=== PATIENT | male | born 1970 | race Hispanic/Latino ===

== ENCOUNTER 2017-07-17 14:05 | Inpatient (IN) | payer MEDICARE, MEDICAID ==
[2017-07-17 14:58] VITALS: BMI 48.7
[2017-07-17 16:01] LABS: BASO # 0.02 K/mm3 (0.0-2.0); BASO % 0.2 % (0.0-3.0); EOS % 0.1 % (1.5-5.0); GRAN # 10.75 (1.4-6.5); GRAN % 88.3 % (50.0-68.0); HEMOGLOBIN 12.6 g/dL (14.0-18.0); LYMPH # 0.6 (1.2-3.4); LYMPH % 5.1 % (22.0-35.0); MEAN CELL VOLUME 86.3 fl (80.0-105.0); MEAN CORPUSCULAR HEMOGLOBIN 28.8 pg (25.0-35.0); MEAN CORPUSCULAR HGB CONC 33.4 g/dl (31.0-37.0); MEAN PLATELET VOLUME 9.2 fl (7.0-11.0); MONO # 0.8 (0.1-0.6); MONO % 6.3 % (1.0-6.0); RBC 4.37 10^6/uL (3.5-6.1); RED CELL DISTRIBUTION WIDTH 14.7 % (11.5-14.5); WHITE BLOOD COUNT 12.2 10^3/ul (4.5-11.0)
[2017-07-17 16:02] LABS: VENOUS BLOOD GAS BASE EXCESS 2.7 mmol/L (0.0-2.0); VENOUS BLOOD GAS PO2 44 mm/Hg (30-55); VENOUS BLOOD PH 7.41 (7.32-7.43)
--- NOTE | 2017-07-17 16:08 | RAD ---
HISTORY: leg pain/swelling/erythema COMPARISON: Comparison is made with 07/25/2016 FINDINGS: LUNGS: No evidence of new infiltrate or consolidation in the lungs. PLEURA: No significant pleural effusion identified, no pneumothorax apparent. CARDIOVASCULAR: Normal. OSSEOUS STRUCTURES: No significant abnormalities. VISUALIZED UPPER ABDOMEN: Normal. OTHER FINDINGS: None. IMPRESSION: No active disease.
[2017-07-17 16:14] LABS: ALB/GLOB RATIO 0.9 (1.1-1.8); ALBUMIN 3.8 g/dL (3.0-4.8); ALT/SGPT 17 U/L (7-56); AST/SGOT 27 U/L (17-59); BLOOD UREA NITROGEN 14 mg/dL (7-21); CALCIUM 9.2 mg/dL (8.4-10.5); GFR AFRICAN-AMERICAN > 60; GFR NON-AFRICAN AMERICAN > 60; INR 1.77 (0.93-1.08); PARTIAL THROMBOPLASTIN TIME 32.5 Seconds (25.1-36.5); PROTHROMBIN TIME 20.4 SECONDS (9.4-12.5)
[2017-07-17] MEDS ORDERED: Vancomycin 1gm in NS 250ml 1 GM/250 ML BAG IVPB STA (16:17)
[2017-07-17] MEDS ORDERED: Piperacillin/Tazobact 3.375 gm 100 ML IVPB STA (16:17)
--- NOTE | 2017-07-17 16:39 | CARD ---
APPROVED REPORT EKG Measurement Heart [id number] <Conclusion> Sinus tachycardia Otherwise normal ECG
--- NOTE | 2017-07-17 17:40 | US ---
HISTORY: Leg pain and swelling. Evaluate for DVT PHYSICIAN(S): Mookie Zayas MD. TECHNIQUE: Duplex sonography and color-flow Doppler with graded compression were used to evaluate the deep venous systems of both lower extremities. The exam is very limited by body habitus and edema. The lower femoral veins and tibial veins are not adequately seen FINDINGS: The visualized deep venous systems of both lower extremities are sonographically normal and compressible. Normal wave forms and augmentation are seen. There is no sonographic evidence for deep venous thrombosis in the visualized segments of both lower extremities. IMPRESSION: No sonographic evidence for deep venous thrombosis in the visualized segments of both lower extremities. Very limited study.
[2017-07-17 18:02] LABS: URINE BILIRUBIN SMALL (NEGATIVE); URINE BLOOD TRACE-INTACT (NEGATIVE); URINE GLUCOSE (UA) NEGATIVE (NEGATIVE); URINE LEUKOCYTE ESTERASE NEGATIVE Leu/uL (NEGATIVE); URINE NITRATE NEGATIVE (NEGATIVE); URINE PROTEIN 30 mg/dL (<30 mg/dL)
[2017-07-17 18:07] LABS: URINE APPEARANCE CLEAR (CLEAR); URINE COLOR YELLOW (YELLOW)
[2017-07-17] MEDS ORDERED: Sodium Chloride 0.9% 500 ML IV STA (18:07)
[2017-07-17] MEDS ORDERED: Sodium Chloride 0.9% 1,000 ML IV STA ×2 (18:13→21:54)
[2017-07-17 18:16] LABS: URINE BACTERIA FEW (NEG); URINE RBC 0 - 2 /hpf (0-2); URINE WBC 0 - 2 /hpf (0-6)
--- NOTE | 2017-07-17 18:59 | ED PDOC ---
Arrival/HPI - General Chief Complaint: Lower Extremity Problem/Injury Time Seen by Provider: 07/17/17 15:07 Historian: Patient - History of Present Illness Narrative History of Present Illness (Text): 07/17/17 18:52 47-year-old male with a history of lymphedema in the bilateral lower extremities presents today after being sent for evaluation by the tool crib lead Dr. Tejeda. Patient states he sees Dr. Tejeda regularly for his lymphedema and his wounds on his left leg. Patient states he hasn't been feeling well for about 2-1/2 days. Patient states he's been feeling feverish and having chills. Patient states he feels a little short of breath. States he's had dry mouth. Denies abdominal pain. He is complaining of diffuse body aches. Patient denies nasal congestion or sore throat. Denies dizziness. Complaining of weakness. Patient states he noticed his right leg was a little more swollen than usual and very red. Patient states he took Tylenol yesterday. No medications have been taken for pain today. No other complaints Symptom Onset: Gradual Symptom Course: Worsening Quality: Aching Severity Level: 6 Past Medical History - Provider Review Nursing Documentation Reviewed: Yes - Travel History Have you recently traveled outside [place] w/in the past 3 mons?: No - Infectious Disease Hx of Infectious Diseases: None - Tetanus Immunization Tetanus Immunization: Unknown - Past Medical History Past Medical History: No Previous - Cardiac Hx Cardiac Disorders: No - Pulmonary Hx Respiratory Disorders: No - Neurological Hx Neurological Disorder: No - HEENT Hx HEENT Disorder: Yes (glasses) - Renal Hx Renal Disorder: Yes (BLADDER INFECTION 2011) - Endocrine/Metabolic Hx Diabetes Mellitus Type 2: Yes - Hematological/Oncological Hx Blood Disorders: No - Integumentary Hx Dermatological Disorder: Yes (CELLULITIS OMAYRA LE. 02-22-16) Other/Comment: lymphadema ble/redness lle - Musculoskeletal/Rheumatological Hx Musculoskeletal Disorders: Yes Hx Falls: Yes Hx Unsteady Gait: Yes (CANE) - Gastrointestinal Hx Gastrointestinal Disorders: No - Genitourinary/Gynecological Hx Genitourinary Disorders: Yes Hx Urinary Tract Infection: Yes - Psychiatric Hx Psychophysiologic Disorder: Yes Hx Depression: Yes Hx Emotional Abuse: No Hx Physical Abuse: No Hx Substance Use: No Other/Comment: LD-Mild - Past Surgical History Past Surgical History: No Previous - Anesthesia Hx Anesthesia: Yes Hx Anesthesia Reactions: No Hx Malignant Hyperthermia: No - Suicidal Assessment Feels Threatened In Home Enviroment: No Family/Social History - Physician Review Nursing Documentation Reviewed: Yes Family/Social History: Unknown Family HX Smoking Status: Former Smoker Hx Alcohol Use: No Hx Substance Use: No Hx Substance Use Treatment: No Allergies/Home Meds Allergies/Adverse Reactions: Allergies No Known Allergies Allergy (Verified 07/25/16 22:48) Review of Systems - Review of Systems Constitutional: Fatigue, Fevers ENT: absent: Sore Throat, Sinus Congestion Respiratory: SOB. absent: Cough, Wheezing Cardiovascular: absent: Chest Pain Gastrointestinal: absent: Abdominal Pain, Nausea, Vomiting Genitourinary Male: absent: Dysuria Musculoskeletal: Arthralgias, Back Pain. absent: Neck Pain Skin: Cellulitis Neurological: absent: Headache, Dizziness Psychiatric: absent: Anxiety, Depression Physical Exam Vital Signs Reviewed: Yes Vital Signs Temp Pulse Resp BP Pulse Ox 07/17/17 19:00 102 F H 105 H 21 129/72 97 07/17/17 18:16 102.4 F H 120 H 18 134/60 98 07/17/17 17:00 78 18 123/54 L 98 07/17/17 15:13 98.0 F 78 18 121/67 98 Temperature: Afebrile Blood Pressure: Normal Pulse: Regular Respiratory Rate: Normal Appearance: Positive for: Well-Appearing, Non-Toxic, Comfortable Pain Distress: None Mental Status: Positive for: Alert and Oriented X 3 Finger Stick Blood Glucose: 89 - Systems Exam Head: Present: Atraumatic Mouth: Present: Moist Mucous Membranes Neck: Present: Normal Range of Motion Respiratory/Chest: Present: Clear to Auscultation, Good Air Exchange. No: Respiratory Distress, Accessory Muscle Use, Wheezes, Rhonchi, Tachypneic Cardiovascular: Present: Regular Rate and Rhythm. No: Murmurs, Peripheal Pulses Present, Tachycardic Abdomen: No: Tenderness, Rebound, Guarding Back: Present: Normal Inspection Upper Extremity: Present: Normal Inspection Lower Extremity: Present: Edema (Lymphedema noted bilaterally.), Tenderness, Swelling, Erythema (Right lower extremity: Erythema extends around the entire calf and along the posterior aspect of the knee and right thigh. Positive tenderness. Positive warmth.) Neurological: Present: GCS=15, Speech Normal Skin: Present: Warm Psychiatric: Present: Alert, Oriented x 3 Medical Decision Making ED Course and Treatment: 07/17/17 19:01 47-year-old male with right leg cellulitis sent in by Dr. Tejeda for further evaluation Patient was stable vital signs Venous duplex of the bilateral lower extremities are negative for DVT although limited evaluation due to edema verbal report from optometric tech CBC White blood cell count 12.2 CMP glucose 139 Chest x-ray no no infiltrate or effusion no cardiomegaly lactate; 1.8 EKG sinus tachycardia at 105 bpm normal axis normal intervals no ST elevations pt was started on vancomycin and zosyn for cellulitis of right lower leg. Patient complaining of shortness of breath becoming tachycardic in the emergency room case was discussed with dr. tejeda in depth; she states she was concerned for flu or possible DVT or cellulitis as the patient was saying that he just hasnt been feeling well. D-dimer elevated CT angiogram: FINDINGS: Limitations: Motion artifact - mild. Suboptimal timing of bolus. Pulmonary arteries: No definite filling defects within main, lobar, segmental branches. Suboptimal evaluation of subsegmental branches. Aorta: No aneurysm. No dissection. Lungs: Mild atelectasis/scarring. No consolidation. Pleural space: No significant effusion. No pneumothorax. Heart: Borderline cardiomegaly. No significant pericardial effusion. Mediastinum: Small hiatal hernia. Bones/joints: Mild degenerative changes of spine. Moderate degenerative changes of left acromioclavicular joint. No acute fracture. Soft tissues: Minimal gynecomastia. Lymph nodes: No pathologically enlarged lymph nodes. Liver: Fatty infiltration. IMPRESSION: 1. No definite pulmonary embolism. 2. Incidental/non-acute findings are described above. Patient's temperature was checked in the emergency room now 102.4. Tylenol given by mouth Toradol ordered IV. 1 L normal saline IV bolus given Rapid flu:negative pt reassessment; pt feeling better; HR improved; pain improved. 2L NS bolus ordered. case was discussed with dr. oliver; he would like the patient to be admitted to hospitalist. case discussed with dr. wetzel in depth; accepts admission; will place patient on remote tele for tachycardia. pt was seen and evaluated by dr. wetzel impression: Cellulitis, tachycardia, fever, leukocytosis Admitted to remote telemetry Reassessment Condition: Re-examined, Improved - Lab Interpretations Lab Results: 07/17/17 15:40 07/17/17 15:40 Lab Results 07/17/17 20:25: Influenza Typ A,B (EIA) Negative for flu a/b 07/17/17 17:58: Urine Color Yellow, Urine Appearance Clear, Urine pH 6.0, Ur Specific [place] 1.020, Urine Protein 30 H, Urine Glucose (UA) Negative, Urine Ketones Negative, Urine Blood Trace-intact H, Urine Nitrate Negative, Urine Bilirubin Small H, Urine Urobilinogen 1.0 H, Ur Leukocyte Esterase Negative, Urine RBC 0 - 2, Urine WBC 0 - 2, Ur Epithelial Cells 3 - 4, Urine Bacteria Few 07/17/17 15:52: POC Glucose (mg/dL) 89 07/17/17 15:40: D-Dimer, Quantitative 1940 H 07/17/17 15:40: WBC 12.2 H D, RBC 4.37, Hgb 12.6 L, Hct 37.7 L, MCV 86.3, MCH 28.8, MCHC 33.4, RDW 14.7 H, Plt Count 183, MPV 9.2, Gran % 88.3 H, Lymph % ( Auto) 5.1 L, [place] % (Auto) 6.3 H, Eos % (Auto) 0.1 L, Baso % (Auto) 0.2, Gran # 10.75 H, Lymph # (Auto) 0.[address] L, [place] # (Auto) 0.8 H, Eos # (Auto) 0.0, Baso # ( Auto) 0.02 07/17/17 15:40: Sodium 135, Chloride 97 L, Potassium 3.9, Carbon Dioxide 28, Anion Gap 13, BUN 14, Creatinine 0.8, Est GFR ( Amer) > 60, Est GFR (Non- Af Amer) > 60, Random Glucose 139 H, Calcium 9.2, Total Bilirubin 2.1 H, AST 27 , ALT 17, Alkaline Phosphatase 95, Total Protein 8.1, Albumin 3.8, Globulin 4.3 , Albumin/Globulin Ratio 0.9 L 07/17/17 15:40: pO2 44, VBG pH 7.41, VBG pCO2 44.0, VBG HCO3 27.9, VBG Total CO2 29.3 H, VBG O2 Sat (Calc) 84.6 H, VBG Base Excess 2.7 H, VBG Potassium 4.0, Sodium 132.0, Chloride 100.0, Glucose 136 H, Lactate 1.8, FiO2 21.0, Venous Blood Potassium 4.0 07/17/17 15:40: PT 20.4 H, INR 1.77 H, APTT 32.5 - RAD Interpretation Radiology Orders: 07/17/17 15:24 CHEST PORTABLE [RAD] Stat 07/17/17 15:47 DUPLEX LOWER EXTRM VEIN BILAT [US] Stat 07/17/17 18:07 ANGIO CHEST PE PROTOCOL [CT] Stat - Medication Orders Current Medication Orders: Sodium Chloride (Sodium Chloride 0.9%) 1,000 mls @ 999 mls/hr IV .Q1H1M STA Stop: 07/17/17 22:54 Discontinued Medications Acetaminophen (Tylenol 325mg Tab) 975 mg PO STAT STA Stop: 07/17/17 18:13 Last Admin: 07/17/17 19:09 Dose: 975 mg MAR Pain/Vitals Document 07/17/17 19:09 GMI (Rec: 07/17/17 19:09 GMI [id number]) Pain Reassessment Is This A Pain ReAssessment? Yes Sleep Is patient sleeping during reassessment? No Presence of Pain Presence of Pain No Vancomycin HCl (Vancomycin 1gm) 1 gm in 250 mls @ 167 mls/hr IVPB STAT STA PRN Reason: Protocol Stop: 07/17/17 17:46 Last Admin: 07/17/17 18:35 Dose: 167 mls/hr eMAR Start Stop Document 07/17/17 18:35 GMI (Rec: 07/17/17 18:36 GMI [id number]) Intravenous Solution Start Date 07/17/17 Start Time 18:36 Piperacillin Sod/Tazobactam Sod (Zosyn 3.375 In Ns 100ml) 100 mls @ 200 mls/hr IVPB STAT STA PRN Reason: Protocol Stop: 07/17/17 16:46 Last Admin: 07/17/17 18:00 Dose: 200 mls/hr eMAR Start Stop Document 07/17/17 18:00 GMI (Rec: 07/17/17 18:01 GMI [id number]) Intravenous Solution Start Date 07/17/17 Start Time 17:45 End Date 07/17/17 End time 18:30 Total Infusion Time 45 Sodium Chloride (Sodium Chloride 0.9%) 1,000 mls @ 999 mls/hr IV .Q1H1M STA Stop: 07/17/17 19:13 Last Admin: 07/17/17 19:06 Dose: 999 mls/hr eMAR Start Stop Document 07/17/17 19:06 GMI (Rec: 07/17/17 19:07 GMI [id number]) Intravenous Solution Start Date 07/17/17 Start Time 19:07 Ketorolac Tromethamine (Toradol) 30 mg IVP STAT STA Stop: 07/17/17 18:13 Last Admin: 07/17/17 19:10 Dose: 30 mg MAR Pain Assessment Document 07/17/17 19:10 GMI (Rec: 07/17/17 19:12 GMI [id number]) Pain Reassessment Is this a pain reassessment? Yes Sleep Is patient sleeping during reassessment? No Presence of Pain Presence of Pain Yes Pain Scale Used Pain Scale Used Numeric Description Description Constant Intensity of Pain at present 6 Alleviating Factors/Management Medication Techniques Position Change Alleviating Factors Medication IVP Administration Document 07/17/17 19:10 GMI (Rec: 07/17/17 19:12 GMI [id number]) Charges for Administration # of IVP Administrations 1 Disposition/Present on Arrival - Present on Arrival Any Indicators Present on Arrival: No History of DVT/PE: No History of Uncontrolled Diabetes: No Urinary Catheter: No History of Decub. Ulcer: No History Surgical Site Infection Following: None - Disposition Have Diagnosis and Disposition been Completed?: Yes Diagnosis: Cellulitis, leg, Tachycardia, Fever, Leukocytosis, Lymphedema Disposition: HOSPITALIZED Disposition Time: 22:07 Patient Plan: Admission Condition: FAIR Discharge Instructions (ExitCare): Cellulitis (ED) Referrals: Yogi Oliver JD, MD [Primary Care Provider] - Follow up with primary Forms: [employer] ([place])
[2017-07-17] MEDS ORDERED: Iohexol 350 MG/100 ML VIAL ONE (19:26)
--- NOTE | 2017-07-17 21:44 | CT ---
EXAM: CT Angiography Chest With Intravenous Contrast CLINICAL HISTORY: 47 years old, male; Signs and symptoms; Shortness of breath; Additional info: Shortness of breath, leg pain/swelling/erythema/ TECHNIQUE: Axial computed tomographic angiography images of the chest with intravenous contrast using pulmonary embolism protocol. All CT scans at this facility use one or more dose reduction techniques, viz.: automated exposure control; ma/kV adjustment per patient size (including targeted exams where dose is matched to indication; i.e. head); or iterative reconstruction technique. MIP reconstructed images were created and reviewed. Coronal and sagittal reformatted images were created and reviewed. CONTRAST: 100 mL of OMNI administered intravenously. COMPARISON: DX - CHEST PORTABLE 2017-07-17 15:29 FINDINGS: Limitations: Motion artifact - mild. Suboptimal timing of bolus. Pulmonary arteries: No definite filling defects within main, lobar, segmental branches. Suboptimal evaluation of subsegmental branches. Aorta: No aneurysm. No dissection. Lungs: Mild atelectasis/scarring. No consolidation. Pleural space: No significant effusion. No pneumothorax. Heart: Borderline cardiomegaly. No significant pericardial effusion. Mediastinum: Small hiatal hernia. Bones/joints: Mild degenerative changes of spine. Moderate degenerative changes of left acromioclavicular joint. No acute fracture. Soft tissues: Minimal gynecomastia. Lymph nodes: No pathologically enlarged lymph nodes. Liver: Fatty infiltration. IMPRESSION: 1. No definite pulmonary embolism. 2. Incidental/non-acute findings are described above.
--- NOTE | 2017-07-17 23:04 | CP.PCM.HP ---
<Bienvenido Cook - Last Filed: 07/17/17 23:08> History of Present Illness - History of Present Illness History of Present Illness: Aguila Cook PGY-1 H&P CC: Left lower extremity pain HPI: Patient is a 47 year old male with past medical history of bilateral lower extremity lymphedema, morbid obesity and DM2 who presents with left lower extremity edema/redness and cellulitis. Patient reports he has a chronic issue with lower extremity lymphedema and specifically to his left lower extremity with drainage from his open wounds. Patient is evaluated and followed with Dr. Tejeda in the wound clinic at [facility]. He was sent over from wound clinic to ED for evaluation. Patient reports ongoing issue with lower extremity lasting months. Over the past 3 days patient has recently developed redness and increased drainage that is described as clear to yellow over the past few days. Patient indicates he has had chills, fever, and pain associated with the lower left extremity. Patient denies chest pain, abdominal pain, diarrhea, nausea, vomiting, numbness and weakness. Patient indicates previous episodes of cellulitis requiring IV antibiotics and wound care. PMH: Chronic Lymphedema PSH: Denies All: NKDA Meds: Tylenol FMHx: CVA, HTN SocHx: Denies tobacco ETOh, Illicit drugs Podiatry: Dr. Tejeda PMD: Dr. Yogi Oliver Present on Admission - Present on Admission Any Indicators Present on Admission: No Review of Systems - Constitutional Constitutional: Chills, Fever - EENT Eyes: absent: Blurred Vision, Change in Vision Ears: absent: Ear Discharge Nose/Mouth/Throat: Nasal Congestion, Nasal Discharge, Dry Mouth. absent: Epistaxis - Cardiovascular Cardiovascular: absent: Chest Pain, Chest Pain at Rest - Respiratory Respiratory: Dyspnea. absent: Cough, Hemoptysis, Wheezing - Gastrointestinal Gastrointestinal: absent: Abdominal Pain, Bloating, Diarrhea - Genitourinary Genitourinary: absent: Dysuria, Hematuria - Musculoskeletal Musculoskeletal: Myalgias. absent: Abnormal Gait, Muscle Weakness - Integumentary Integumentary: Rash, Swelling, Wounds (left lower extremity) - Neurological Neurological: absent: Abnormal Gait, Dizziness, Numbness, Focal Weakness - Psychiatric Psychiatric: absent: Anxiety, Confusion - Hematologic/Lymphatic Hematologic: absent: Easy Bleeding, Easy Bruising Past Patient History - Infectious Disease Hx of Infectious Diseases: None - Tetanus Immunizations Tetanus Immunization: Unknown - Past Medical History & Family History Past Medical History?: Yes - Past Social History Smoking Status: Former Smoker Alcohol: None Drugs: Denies - CARDIAC Hx Cardiac Disorders: No - PULMONARY Hx Respiratory Disorders: No - NEUROLOGICAL Hx Neurological Disorder: No - HEENT Hx HEENT Problems: Yes (glasses) - RENAL Hx Chronic Kidney Disease: Yes (BLADDER INFECTION 2011) - ENDOCRINE/METABOLIC Hx Diabetes Mellitus Type 2: Yes - HEMATOLOGICAL/ONCOLOGICAL Hx Blood Disorders: No - INTEGUMENTARY Hx Dermatological Problems: Yes (CELLULITIS OMAYRA LE. 02-22-16) Other/Comment: lymphadema ble/redness lle - MUSCULOSKELETAL/RHEUMATOLOGICAL Hx Musculoskeletal Disorders: Yes Hx Falls: Yes Hx Unsteady Gait: Yes (CANE) - GASTROINTESTINAL Hx Gastrointestinal Disorders: No - GENITOURINARY/GYNECOLOGICAL Hx Genitourinary Disorders: Yes Hx Urinary Tract Infection: Yes - PSYCHIATRIC Hx Psychophysiologic Disorder: Yes Hx Depression: Yes Hx Emotional Abuse: No Hx Physical Abuse: No Hx Substance Use: No Other/Comment: LD-Mild - SURGICAL HISTORY Hx Surgeries: No - ANESTHESIA Hx Anesthesia: Yes Hx Anesthesia Reactions: No Hx Malignant Hyperthermia: No Meds Allergies/Adverse Reactions: Allergies Allergy/AdvReac Type Severity Reaction Status Date / Time No Known Allergies Allergy Verified 07/25/16 22:48 Physical Exam - Constitutional Appears: No Acute Distress Additional comments: Appears stated age, talking in full sentences - Head Exam Head Exam: ATRAUMATIC, NORMAL INSPECTION, NORMOCEPHALIC - Eye Exam Eye Exam: EOMI, PERRL - ENT Exam ENT Exam: Mucous Membranes Dry - Respiratory Exam Respiratory Exam: Clear to Auscultation Bilateral, NORMAL BREATHING PATTERN. absent: Rhonchi, Wheezes - Cardiovascular Exam Cardiovascular Exam: REGULAR RHYTHM, +S1, +S2 - GI/Abdominal Exam GI & Abdominal Exam: Distended (obesity), Normal Bowel Sounds, Soft - Extremities Exam Extremities exam: Negative for: calf tenderness Additional comments: bilateral edema of lower extremities, left lower extremity with wound dressing in place, left leg with clear to purulent drainage of open wounds, redness and elevated temperature appreciated - Neurological Exam Neurological exam: Alert, Oriented x3 Additional comments: able to follow simple commands, able to move all four extremities past midline, motor and sensory grossly intact - Psychiatric Exam Psychiatric exam: Normal Affect, Normal Mood - Skin Skin Exam: Dry, Warm Additional comments: erythema noted of left lower extremity Results - Vital Signs Recent Vital Signs: Last Vital Signs Temp 102 F H 07/17/17 19:00 Pulse 105 H 07/17/17 19:00 Resp 21 07/17/17 19:00 BP 129/72 07/17/17 19:00 Pulse Ox 97 07/17/17 19:00 - Labs Result Diagrams: 07/17/17 15:40 07/17/17 15:40 Labs: Laboratory Results - last 24 hr 07/17/17 07/17/17 07/17/17 15:40 15:40 15:40 WBC RBC Hgb Hct MCV MCH MCHC RDW Plt Count MPV Gran % Lymph % (Auto) [place] % (Auto) Eos % (Auto) Baso % (Auto) Gran # Lymph # (Auto) [place] # (Auto) Eos # (Auto) Baso # (Auto) PT 20.4 H INR 1.77 H APTT 32.5 D-Dimer, Quantitative pO2 44 VBG pH 7.41 VBG pCO2 44.0 VBG HCO3 27.9 VBG Total CO2 29.3 H VBG O2 Sat (Calc) 84.6 H VBG Base Excess 2.7 H VBG Potassium 4.0 Sodium 132.0 135 Chloride 100.0 97 L Glucose 136 H Lactate 1.8 FiO2 21.0 Potassium 3.9 Carbon Dioxide 28 Anion Gap 13 BUN 14 Creatinine 0.8 Est GFR ( Amer) > 60 Est GFR (Non-Af Amer) > 60 POC Glucose (mg/dL) Random Glucose 139 H Calcium 9.2 Total Bilirubin 2.1 H AST 27 ALT 17 Alkaline Phosphatase 95 Total Protein 8.1 Albumin 3.8 Globulin 4.3 Albumin/Globulin Ratio 0.9 L Venous Blood Potassium 4.0 Urine Color Urine Appearance Urine pH Ur Specific [place] Urine Protein Urine Glucose (UA) Urine Ketones Urine Blood Urine Nitrate Urine Bilirubin Urine Urobilinogen Ur Leukocyte Esterase Urine RBC Urine WBC Ur Epithelial Cells Urine Bacteria Influenza Typ A,B (EIA) 07/17/17 07/17/17 07/17/17 15:40 15:40 15:52 WBC 12.2 H D RBC 4.37 Hgb 12.6 L Hct 37.7 L MCV 86.3 MCH 28.8 MCHC 33.4 RDW 14.7 H Plt Count 183 MPV 9.2 Gran % 88.3 H Lymph % (Auto) 5.1 L [place] % (Auto) 6.3 H Eos % (Auto) 0.1 L Baso % (Auto) 0.2 Gran # 10.75 H Lymph # (Auto) 0.6 L [place] # (Auto) 0.8 H Eos # (Auto) 0.0 Baso # (Auto) 0.02 PT INR APTT D-Dimer, Quantitative 1940 H pO2 VBG pH VBG pCO2 VBG HCO3 VBG Total CO2 VBG O2 Sat (Calc) VBG Base Excess VBG Potassium Sodium Chloride Glucose Lactate FiO2 Potassium Carbon Dioxide Anion Gap BUN Creatinine Est GFR ( Amer) Est GFR (Non-Af Amer) POC Glucose (mg/dL) 89 Random Glucose Calcium Total Bilirubin AST ALT Alkaline Phosphatase Total Protein Albumin Globulin Albumin/Globulin Ratio Venous Blood Potassium Urine Color Urine Appearance Urine pH Ur Specific [place] Urine Protein Urine Glucose (UA) Urine Ketones Urine Blood Urine Nitrate Urine Bilirubin Urine Urobilinogen Ur Leukocyte Esterase Urine RBC Urine WBC Ur Epithelial Cells Urine Bacteria Influenza Typ A,B (EIA) 07/17/17 07/17/17 17:58 20:25 WBC RBC Hgb Hct MCV MCH MCHC RDW Plt Count MPV Gran % Lymph % (Auto) [place] % (Auto) Eos % (Auto) Baso % (Auto) Gran # Lymph # (Auto) [place] # (Auto) Eos # (Auto) Baso # (Auto) PT INR APTT D-Dimer, Quantitative pO2 VBG pH VBG pCO2 VBG HCO3 VBG Total CO2 VBG O2 Sat (Calc) VBG Base Excess VBG Potassium Sodium Chloride Glucose Lactate FiO2 Potassium Carbon Dioxide Anion Gap BUN Creatinine Est GFR ( Amer) Est GFR (Non-Af Amer) POC Glucose (mg/dL) Random Glucose Calcium Total Bilirubin AST ALT Alkaline Phosphatase Total Protein Albumin Globulin Albumin/Globulin Ratio Venous Blood Potassium Urine Color Yellow Urine Appearance Clear Urine pH 6.0 Ur [place] 1.020 Urine Protein 30 H Urine Glucose (UA) Negative Urine Ketones Negative Urine Blood Trace-intact H Urine Nitrate Negative Urine Bilirubin Small H Urine Urobilinogen 1.0 H Ur Leukocyte Esterase Negative Urine RBC 0 - 2 Urine WBC 0 - 2 Ur Epithelial Cells 3 - 4 Urine Bacteria Few Influenza Typ A,B (EIA) Negative for flu a/b Assessment & Plan - Assessment and Plan (Free Text) Assessment: Patient is a 47 year old male with past medical history of bilateral lower extremity lymphedema, morbid obesity and DM2 who presents with left lower extremity edema/redness and cellulitis. Patient was evaluated in ED and found to be tachycardic, febrile. Patient was noted to be tachycardic and short of breath a lower extremity US was done which was negative, D-Dimer was elevated and CTA of chest was done which showed no evidence of PE. Wound cultures were taken, IV antibiotics were started and patient was admitted for further medical management and evaluation. Plan: 1. Cellulitis of left lower extremity - Febrile, Leukocytosis, Tachycardic - CBC, CMP, Wound, blood culture - Vanc and Zosyn - Consult ID, Dr. Og - Consult Podiatry, Dr. Tejeda - Tylenol prn Fever - Wound care consult - NS 125mL/hr 2. DM2 - ISS low - ACHS - Heart Healthy diet 3. Elevated D-Dimer - Likely secondary to infection - lower extremity US negative for DVT - CTA of chest negative - O2 saturation >92% on RA DVT ppx: Lovenox GI ppx: Pepcid Case and plan discussed with attending - Date & Time Date: 07/17/17 Time: 22:15 <Jefferson Bedolla MD - Last Filed: 07/18/17 11:26> Results - Vital Signs Recent Vital Signs: Last Vital Signs Temp 97.8 F 07/18/17 06:00 Pulse 91 H 07/18/17 06:00 Resp 20 07/18/17 06:00 BP 127/62 07/18/17 06:00 Pulse Ox 97 07/18/17 06:00 - Labs Result Diagrams: 07/18/17 06:30 07/18/17 05:30 Labs: Laboratory Results - last 24 hr 07/18/17 07/18/17 07/18/17 05:30 05:30 06:30 WBC RBC Hgb Hct MCV MCH MCHC RDW Plt Count MPV Gran % Lymph % (Auto) [place] % (Auto) Eos % (Auto) Baso % (Auto) Gran # Lymph # (Auto) [place] # (Auto) Eos # (Auto) Baso # (Auto) ESR 115 H PT 19.0 H INR 1.64 H Sodium 136 Potassium 3.7 Chloride 102 Carbon Dioxide 30 Anion Gap 8 L BUN 14 Creatinine 0.8 Est GFR ( Amer) > 60 Est GFR (Non-Af Amer) > 60 POC Glucose (mg/dL) Random Glucose 139 H Calcium 8.5 Total Bilirubin 1.9 H AST 25 ALT 25 Alkaline Phosphatase 83 Troponin I NT-Pro-B Natriuret Pep Total Protein 7.0 Albumin 3.0 Globulin 3.9 Albumin/Globulin Ratio 0.8 L 07/18/17 07/18/17 07/18/17 06:30 06:30 09:07 WBC 8.0 D RBC 3.82 Hgb 10.8 L Hct 33.4 L MCV 87.4 MCH 28.3 MCHC 32.3 RDW 15.1 H Plt Count 161 MPV 9.5 Gran % 83.0 H Lymph % (Auto) 7.3 L [place] % (Auto) 8.7 H Eos % (Auto) 0.9 L Baso % (Auto) 0.1 Gran # 6.67 H Lymph # (Auto) 0.6 L [place] # (Auto) 0.7 H Eos # (Auto) 0.1 Baso # (Auto) 0.01 ESR PT INR Sodium Potassium Chloride Carbon Dioxide Anion Gap BUN Creatinine Est GFR ( Amer) Est GFR (Non-Af Amer) POC Glucose (mg/dL) 151 H Random Glucose Calcium Total Bilirubin AST ALT Alkaline Phosphatase Troponin I < 0.01 NT-Pro-B Natriuret Pep 313 Total Protein Albumin Globulin Albumin/Globulin Ratio Attending/Attestation - Attestation I have personally seen and examined this patient.: Yes I have fully participated in the care of the patient.: Yes I have reviewed all pertinent clinical information: Yes Notes (Text): -I agree with the above H&P completed by the resident physician with the following additions and/or changes: -The patient is a 47 year old man with a history of NIDDM, chronic leg lymphedema with recurrent venous stasis ulcers and cellulitis, who is being admitted with bilateral lower extremity cellulitis. He will be started on empiric IV Vanco and Zosyn. Also, a procalcitonin level has been sent. All imaging done in the ED was negative for clots. Wound care, ID and podiatry have all been consulted.
[2017-07-17] MEDS: Piperacillin/Tazobact 3.375 gm 100 ML IVPB SCH (23:14)
[2017-07-18] MEDS: Sodium Chloride 0.9% 1,000 ML IV SCH ×4 (05:28→23:23)
[2017-07-18] MEDS: Piperacillin/Tazobact 3.375 gm 100 ML IVPB SCH (05:30)
[2017-07-18] MEDS: Vancomycin 1.5 GM in Sodium Chloride 0.9% 500 ML IVPB SCH ×2 (06:07→17:38)
[2017-07-18 06:29] LABS: INR 1.64 (0.93-1.08)
[2017-07-18 07:48] LABS: ALB/GLOB RATIO 0.8 (1.1-1.8); ALT/SGPT 25 U/L (7-56); AST/SGOT 25 U/L (17-59); BLOOD UREA NITROGEN 14 mg/dL (7-21); CALCIUM 8.5 mg/dL (8.4-10.5); GFR AFRICAN-AMERICAN > 60; GFR NON-AFRICAN AMERICAN > 60
[2017-07-18] MEDS ORDERED: Meropenem 1 GM in Dextrose 5% In Water 100 ML IVPB SCH (08:30)
[2017-07-18 08:45] LABS: BASO # 0.01 K/mm3 (0.0-2.0); BASO % 0.1 % (0.0-3.0); EOS # 0.1 (0.0-0.7); EOS % 0.9 % (1.5-5.0); GRAN # 6.67 (1.4-6.5); HEMOGLOBIN 10.8 g/dL (14.0-18.0); LYMPH # 0.6 (1.2-3.4); LYMPH % 7.3 % (22.0-35.0); MEAN CELL VOLUME 87.4 fl (80.0-105.0); MEAN CORPUSCULAR HEMOGLOBIN 28.3 pg (25.0-35.0); MEAN CORPUSCULAR HGB CONC 32.3 g/dl (31.0-37.0); MEAN PLATELET VOLUME 9.5 fl (7.0-11.0); MONO # 0.7 (0.1-0.6); MONO % 8.7 % (1.0-6.0); RBC 3.82 10^6/uL (3.5-6.1); RED CELL DISTRIBUTION WIDTH 15.1 % (11.5-14.5)
[2017-07-18 08:51] LABS: TROPONIN I < 0.01 ng/mL
[2017-07-18 08:53] LABS: B-TYPE NATRIURETIC PEPTIDE 313 pg/mL (0-450)
[2017-07-18] MEDS: Insulin Reg-LOW-Coverage SC SCH ×4 (09:15→21:53)
[2017-07-18] MEDS: Enoxaparin 40 mg Syringe SC SCH (09:15)
[2017-07-18] MEDS ORDERED: Vancomycin 500 mg Inj IVPB SCH (10:00)
--- NOTE | 2017-07-18 11:15 | CP.PCM.CON ---
History of Present Illness - History of Present Illness History of Present Illness: 47 year old male with PMH of chronic lymphedema, bilateral lower extremity skin and skin structure infection with mild peroneal tenosynovitis (December 2015, treated with IV Vancomycin), chronic lymphedema and history of lower extremity cellulitis in the past, morbid obesity with BMI 55, history of urinary bladder infections in the past was sent in from the wound care center after he was found to have worsening bilateral lower leg swelling, left leg wound which is oozing and right leg being more swollen than the left. He said the pain especially on the right leg got worse about 3-4 days ago. He denies animal contacts, denies walking barefoot on soil, was noted to have fever in the ED. He denies headache or dizziness, no chest pain, abdominal pain, diarrhea, nausea , vomiting, no abdominal pain, no diarrhea, no dysuria. Infectious diseases consult is requested to further evaluate and manage. Review of Systems - Review of Systems All systems: reviewed and no additional remarkable complaints except (as per HPI ) Past Patient History - Infectious Disease Hx of Infectious Diseases: None - Tetanus Immunizations Tetanus Immunization: Unknown - Past Medical History & Family History Past Medical History?: Yes - Past Social History Smoking Status: Never Smoked - CARDIAC Hx Cardiac Disorders: No - PULMONARY Hx Respiratory Disorders: No - NEUROLOGICAL Hx Neurological Disorder: No - HEENT Hx HEENT Problems: No - RENAL Hx Chronic Kidney Disease: No - ENDOCRINE/METABOLIC Hx Endocrine Disorders: Yes Hx Diabetes Mellitus Type 2: Yes - HEMATOLOGICAL/ONCOLOGICAL Hx Blood Disorders: No - INTEGUMENTARY Hx Dermatological Problems: No - MUSCULOSKELETAL/RHEUMATOLOGICAL Hx Musculoskeletal Disorders: No Hx Falls: No - GASTROINTESTINAL Hx Gastrointestinal Disorders: No - GENITOURINARY/GYNECOLOGICAL Hx Genitourinary Disorders: No - PSYCHIATRIC Hx Psychophysiologic Disorder: No Hx Substance Use: No - SURGICAL HISTORY Hx Surgeries: No - ANESTHESIA Hx Anesthesia: Yes Hx Anesthesia Reactions: No Hx Malignant Hyperthermia: No Meds Allergies/Adverse Reactions: Allergies Allergy/AdvReac Type Severity Reaction Status Date / Time No Known Allergies Allergy Verified 07/25/16 22:48 - Medications Medications: Current Medications Acetaminophen (Tylenol 325mg Tab) 650 mg PO Q6H PRN PRN Reason: Fever >100.4 F Enoxaparin Sodium (Lovenox) 40 mg SC DAILY ESTEVAN PRN Reason: Protocol Famotidine (Pepcid) 20 mg PO BID ESTEVAN Sodium Chloride (Sodium Chloride 0.9%) 1,000 mls @ 125 mls/hr IV .Q8H [facility] Last Admin: 07/18/17 05:28 Dose: 125 mls/hr Piperacillin Sod/Tazobactam Sod (Zosyn 3.375 In Ns 100ml) 100 mls @ 200 mls/hr IVPB Q8H EST[facility]AN PRN Reason: Protocol Last Admin: 07/18/17 05:30 Dose: 200 mls/hr Vancomycin HCl 1.5 gm/ Sodium (Chloride) 500 mls @ 167 mls/hr IVPB 0600,1800 [facility] Last Admin: 07/18/17 06:07 Dose: 167 mls/hr Insulin Human Regular (Humulin R Low) 0 units SC ACHS [facility] PRN Reason: Protocol Physical Exam - Constitutional Appears: Chronically Ill - Head Exam Head Exam: NORMAL INSPECTION - ENT Exam ENT Exam: Mucous Membranes Moist - Neck Exam Neck exam: Negative for: Meningismus - Respiratory Exam Respiratory Exam: Decreased Breath Sounds - Cardiovascular Exam Cardiovascular Exam: +S1, +S2 - GI/Abdominal Exam GI & Abdominal Exam: Soft. absent: Tenderness - Extremities Exam Additional comments: both legs with dressings in place; right leg with increased warmth and erythema almost up to the knee area Results - Vital Signs Recent Vital Signs: Last Vital Signs Temp 97.8 F 07/18/17 06:00 Pulse 91 H 07/18/17 06:00 Resp 20 07/18/17 06:00 BP 127/62 07/18/17 06:00 Pulse Ox 97 07/18/17 06:00 - Labs Result Diagrams: 07/18/17 06:30 07/18/17 05:30 Labs: Laboratory Results - last 24 hr 07/18/17 07/18/17 05:30 05:30 PT 19.0 H INR 1.64 H Sodium 136 Potassium 3.7 Chloride 102 Carbon Dioxide 30 Anion Gap 8 L BUN 14 Creatinine 0.8 Est GFR ( Amer) > 60 Est GFR (Non-Af Amer) > 60 Random Glucose 139 H Calcium 8.5 Total Bilirubin 1.9 H AST 25 ALT 25 Alkaline Phosphatase 83 Total Protein 7.0 Albumin 3.0 Globulin 3.9 Albumin/Globulin Ratio 0.8 L Assessment & Plan - Assessment and Plan (Free Text) Plan: Assessment sepsis due to bilateral lower extremity skin and skin structure infection in a patient with chronic lymphedema and chronic venous stasis ulcers - has long standing history, and he previously grew multidrug-resistant Klebsiella and Proteus history of lower extremity cellulitis in the past obesity with BMI 51 history of urinary bladder infections in the past Plan started IV Vancomycin and Merrem pending wound cx, blood cx Follow up Podiatry recommendations and evaluation Will monitor clinically
--- NOTE | 2017-07-18 12:38 | RAD ---
PROCEDURE: Radiographs of the right tibia and fibula. HISTORY: r/o osteo COMPARISON: None available. TECHNIQUE: Frontal and lateral views obtained. FINDINGS: BONES: No fracture or destructive lesion. JOINT SPACES: Unremarkable. OTHER FINDINGS: Bony hypertrophic changes are seen on the medial side of the ankle joint. This could be the result of a previous injury. IMPRESSION: No acute findings
--- NOTE | 2017-07-18 12:39 | RAD ---
PROCEDURE: Right Foot Radiographs. HISTORY: rule out osteo COMPARISON: None. FINDINGS: BONES: Normal. No fracture. JOINTS: Normal. SOFT TISSUES: Normal. OTHER FINDINGS: Degenerative changes are seen in the talus with a large dorsal osteophyte. IMPRESSION: No acute findings
[2017-07-18 12:54] LABS: HEPATITIS B SURFACE AG Negative (NEGATIVE)
[2017-07-18 13:01] LABS: HEPATITIS A IGM NEGATIVE (NEGATIVE); HEPATITIS B CORE AB NEGATIVE (NEGATIVE)
[2017-07-18 13:11] LABS: HEPATITIS C ANTIBODY NEGATIVE (NEGATIVE)
--- NOTE | 2017-07-18 14:48 | CP.PCM.HP ---
History of Present Illness - History of Present Illness History of Present Illness: Orlando is a 47 yo man with PMH diabetes, obesity, and chronic LE lymphedema that presented to ED last night via private vehicle from wound care clinic for evaluation of RLE pain and redness. The pt was sent to the ED from wound care by Dr. Tejeda (podiatry) after she noticed concerning skin changes over his chronic venous stasis ulcers. The pt states that pain started 3 days ago (Monday ). Pain was worse with walking. He walks with a cane normally. He notes dyspnea at rest, vague L chest pain (10/10 in severity), and general malaise. CT was ordered following pts elevated D-dimer. CT results were negative for acute PE. Tylenol, Toradol and fluids were given in the ED last night PEx: General: obese man, diaphoretic, NAD. Lungs: No accessory m. use. Increased work of breathing. Lungs CTAB. No w/r/r. Cardiac: RRR. No m/r/g. No precordial lift. Abdomen: obese abdomen. Normal active bowel sounds in all 4 quadrants. Soft, NT , ND. 1+ R inguinal LAD. No L inguinal LAD present. Lower extremities: DARCI wraps present on bilat LE. 1+ DP pulses, equal bilaterally. RLE significant for Rubor and callor present over distal 2/3 of RLE. Proximal border of erythema marked with marker. 1+ pitting edema. Diffuse hyperpigmentation and macular lesions consistent with venous stasis dermatitis. Scaling and old excoriations present over anterior shins. No drainage observed. Tenderness to palpation over proximal ahmadi. LLE significant for skin changes consistent with venous stasis dermatitis. No excoriations appreciated. DARCI wrap in place. No redness or warmth. Nontender to palpation. A/P: 47M with PMH of DM, obesity, and chronic LE lymphedema with venous stasis dermatitis presenting for RLE pain and skin changes. 1. Right LE soft tissue infection, most likely cellulitis, secondary to chronic venous stasis dermatitis and DM. Rule out osteomyelitis - XR Lower extremity: evaluate soft tissue changes and bony involvement - ESR, CRP>15 - A1c; 6.5 - Wound culture: follow up - Infectious disease consult: Dr. Og - Podiatry consult: Dr. Tejeda - Continue Vancomycin and Zosyn 2. Sepsis: leukocytosis 12.2, fever, tachypnea, RLE cellulitis vs OM - Blood cultures, Pro-al - UA: r/o urosepsis - Fluid maintenance NS@125 - Continue Tylenol for fever 3. Dyspnea and chest pain - BNP, first troponin 1 negative - EKG: r/o ACS - CXR 07/17/17 demonstrated no acute abnormalities - D-dimer elevated, CTA 07/17/17 showed no findings consistent with Acute PE. 4. Coagulopathy: INR low, hypoalbuminemia. Possibly secondary to antibiotic use vs fatty liver disease - Vitamin K challenge. Repeat labs in AM to determine response to vitamin K. DVT PFX: enoxaparin SC Past Patient History - Infectious Disease Hx of Infectious Diseases: None - Tetanus Immunizations Tetanus Immunization: Unknown - Past Medical History & Family History Past Medical History?: Yes - Past Social History Smoking Status: Never Smoked - CARDIAC Hx Cardiac Disorders: No - PULMONARY Hx Respiratory Disorders: No - NEUROLOGICAL Hx Neurological Disorder: No - HEENT Hx HEENT Problems: No - RENAL Hx Chronic Kidney Disease: No - ENDOCRINE/METABOLIC Hx Endocrine Disorders: Yes Hx Diabetes Mellitus Type 2: Yes - HEMATOLOGICAL/ONCOLOGICAL Hx Blood Disorders: No - INTEGUMENTARY Hx Dermatological Problems: No - MUSCULOSKELETAL/RHEUMATOLOGICAL Hx Musculoskeletal Disorders: No Hx Falls: No - GASTROINTESTINAL Hx Gastrointestinal Disorders: No - GENITOURINARY/GYNECOLOGICAL Hx Genitourinary Disorders: No - PSYCHIATRIC Hx Psychophysiologic Disorder: No Hx Substance Use: No - SURGICAL HISTORY Hx Surgeries: No - ANESTHESIA Hx Anesthesia: Yes Hx Anesthesia Reactions: No Hx Malignant Hyperthermia: No Meds Allergies/Adverse Reactions: Allergies Allergy/AdvReac Type Severity Reaction Status Date / Time No Known Allergies Allergy Verified 07/25/16 22:48 Results - Vital Signs Recent Vital Signs: Last Vital Signs Temp 99.4 F 07/18/17 12:00 Pulse 100 H 07/18/17 12:00 Resp 18 07/18/17 12:00 BP 107/62 07/18/17 12:00 Pulse Ox 97 07/18/17 06:00 - Labs Result Diagrams: 07/18/17 06:30 07/18/17 05:30 Labs: Laboratory Results - last 24 hr 07/18/17 07/18/17 07/18/17 05:30 05:30 05:30 WBC RBC Hgb Hct MCV MCH MCHC RDW Plt Count MPV Gran % Lymph % (Auto) [place] % (Auto) Eos % (Auto) Baso % (Auto) Gran # Lymph # (Auto) [place] # (Auto) Eos # (Auto) Baso # (Auto) ESR PT 19.0 H INR 1.64 H Sodium 136 Potassium 3.7 Chloride 102 Carbon Dioxide 30 Anion Gap 8 L BUN 14 Creatinine 0.8 Est GFR ( Amer) > 60 Est GFR (Non-Af Amer) > 60 POC Glucose (mg/dL) Random Glucose 139 H Hemoglobin A1c Calcium 8.5 Total Bilirubin 1.9 H AST 25 ALT 25 Alkaline Phosphatase 83 Troponin I C-React Prot High Sens NT-Pro-B Natriuret Pep Total Protein 7.0 Albumin 3.0 Globulin 3.9 Albumin/Globulin Ratio 0.8 L Procalcitonin Hepatitis A IgM Ab Negative Hep Bs Antigen Negative Hep B Core IgM Ab Negative Hepatitis C Antibody Negative 07/18/17 07/18/17 07/18/17 06:30 06:30 06:30 WBC RBC Hgb Hct MCV MCH MCHC RDW Plt Count MPV Gran % Lymph % (Auto) [place] % (Auto) Eos % (Auto) Baso % (Auto) Gran # Lymph # (Auto) [place] # (Auto) Eos # (Auto) Baso # (Auto) ESR 115 H PT INR Sodium Potassium Chloride Carbon Dioxide Anion Gap BUN Creatinine Est GFR ( Amer) Est GFR (Non-Af Amer) POC Glucose (mg/dL) Random Glucose Hemoglobin A1c 6.5 Calcium Total Bilirubin AST ALT Alkaline Phosphatase Troponin I C-React Prot High Sens NT-Pro-B Natriuret Pep Total Protein Albumin Globulin Albumin/Globulin Ratio Procalcitonin 10.32 H Hepatitis A IgM Ab Hep Bs Antigen Hep B Core IgM Ab Hepatitis C Antibody 07/18/17 07/18/17 07/18/17 06:30 06:30 06:30 WBC 8.0 D RBC 3.82 Hgb 10.8 L Hct 33.4 L MCV 87.4 MCH 28.3 MCHC 32.3 RDW 15.1 H Plt Count 161 MPV 9.5 Gran % 83.0 H Lymph % (Auto) 7.3 L [place] % (Auto) 8.7 H Eos % (Auto) 0.9 L Baso % (Auto) 0.1 Gran # 6.67 H Lymph # (Auto) 0.6 L [place] # (Auto) 0.7 H Eos # (Auto) 0.1 Baso # (Auto) 0.01 ESR PT INR Sodium Potassium Chloride Carbon Dioxide Anion Gap BUN Creatinine Est GFR ( Amer) Est GFR (Non-Af Amer) POC Glucose (mg/dL) Random Glucose Hemoglobin A1c Calcium Total Bilirubin AST ALT Alkaline Phosphatase Troponin I < 0.01 C-React Prot High Sens > 15.00 H NT-Pro-B Natriuret Pep 313 Total Protein Albumin Globulin Albumin/Globulin Ratio Procalcitonin Hepatitis A IgM Ab Hep Bs Antigen Hep B Core IgM Ab Hepatitis C Antibody 07/18/17 07/18/17 07/18/17 09:07 11:36 13:00 WBC RBC Hgb Hct MCV MCH MCHC RDW Plt Count MPV Gran % Lymph % (Auto) [place] % (Auto) Eos % (Auto) Baso % (Auto) Gran # Lymph # (Auto) [place] # (Auto) Eos # (Auto) Baso # (Auto) ESR PT INR Sodium Potassium Chloride Carbon Dioxide Anion Gap BUN Creatinine Est GFR ( Amer) Est GFR (Non-Af Amer) POC Glucose (mg/dL) 151 H 156 H Random Glucose Hemoglobin A1c Calcium Total Bilirubin AST ALT Alkaline Phosphatase Troponin I < 0.01 C-React Prot High Sens NT-Pro-B Natriuret Pep Total Protein Albumin Globulin Albumin/Globulin Ratio Procalcitonin Hepatitis A IgM Ab Hep Bs Antigen Hep B Core IgM Ab Hepatitis C Antibody
[2017-07-18] MEDS: Meropenem 1 GM in Sodium Chloride 0.9% 100 ML IVPB SCH ×2 (15:08→21:39)
--- NOTE | 2017-07-18 16:33 | CP.PCM.CON ---
<[email or web address] - Last Filed: 07/18/17 16:18> History of Present Illness - History of Present Illness History of Present Illness: Podiatry Consult Note - Dr. Singer 47 year old male patient PMHx of chronic idiopathic lymphedema, chronic back pain, herniated disks seen and evaluated at bedside for RIGHT lower extremity pain + redness. Patient also complaining of increased drainage to chronic wounds on bilateral LE. Patient well-known to podiatry service. Patient was sent to ED from his wound care center appointment with Dr. Tejeda after complaining of increased pain to RLE, general malaise, and worsening SOB. Currently, patient complaining of continued RLE pain and malaise. Dressings to bilateral LE present, soaked through with drainage from wounds. Offers no other pedal complaints. Review of Systems - Review of Systems All systems: reviewed and no additional remarkable complaints except (as per HPI ) Past Patient History - Infectious Disease Hx of Infectious Diseases: None - Tetanus Immunizations Tetanus Immunization: Unknown - Past Medical History & Family History Past Medical History?: Yes - Past Social History Smoking Status: Never Smoked - CARDIAC Hx Cardiac Disorders: No - PULMONARY Hx Respiratory Disorders: No - NEUROLOGICAL Hx Neurological Disorder: No - HEENT Hx HEENT Problems: No - RENAL Hx Chronic Kidney Disease: No - ENDOCRINE/METABOLIC Hx Endocrine Disorders: Yes Hx Diabetes Mellitus Type 2: Yes - HEMATOLOGICAL/ONCOLOGICAL Hx Blood Disorders: No - INTEGUMENTARY Hx Dermatological Problems: No - MUSCULOSKELETAL/RHEUMATOLOGICAL Hx Musculoskeletal Disorders: No Hx Falls: No - GASTROINTESTINAL Hx Gastrointestinal Disorders: No - GENITOURINARY/GYNECOLOGICAL Hx Genitourinary Disorders: No - PSYCHIATRIC Hx Psychophysiologic Disorder: No Hx Substance Use: No - SURGICAL HISTORY Hx Surgeries: No - ANESTHESIA Hx Anesthesia: Yes Hx Anesthesia Reactions: No Hx Malignant Hyperthermia: No Meds Allergies/Adverse Reactions: Allergies Allergy/AdvReac Type Severity Reaction Status Date / Time No Known Allergies Allergy Verified 07/25/16 22:48 - Medications Medications: Current Medications Acetaminophen (Tylenol 325mg Tab) 650 mg PO Q6H PRN PRN Reason: Fever >100.4 F Enoxaparin Sodium (Lovenox) 40 mg SC DAILY [facility] PRN Reason: Protocol Last Admin: 07/18/17 09:15 Dose: 40 mg Famotidine (Pepcid) 20 mg PO BID [facility] Last Admin: 07/18/17 09:15 Dose: 20 mg Sodium Chloride (Sodium Chloride 0.9%) 1,000 mls @ 125 mls/hr IV .Q8H [facility] Last Admin: 07/18/17 15:08 Dose: Not Given Vancomycin HCl 1.5 gm/ Sodium (Chloride) 500 mls @ 167 mls/hr IVPB 0600,1800 [facility] Last Admin: 07/18/17 06:07 Dose: 167 mls/hr Meropenem 1 gm/ Sodium (Chloride) 100 mls @ 100 mls/hr IVPB Q8 [facility] PRN Reason: Protocol Stop: 07/25/17 08:31 Last Admin: 07/18/17 15:08 Dose: 100 mls/hr Insulin Human Regular (Humulin R Low) 0 units SC ACHS [facility] PRN Reason: Protocol Last Admin: 07/18/17 11:49 Dose: 1 units Physical Exam - Constitutional Appears: No Acute Distress - Extremities Exam Additional comments: VASC: DP pulses palpable 2/4 b/l. PT pusles nonpalpable secondary to edema. +4 pitting edema noted b/l. Temperature gradient warm to warm LLE, warm to hot RLE. NEURO: Gross sensation intact. DERM: Lymphedema bilaterally with lichenification -RLE=Erythema with proximal dermarcation noted. Superficial ulceration noted to lateral aspect of leg -ulcer is noted to have a mixed fibrogranular base and erythema periwound, moderate serous drainage noted. -LLE=Superficial ulceration noted to posterior aspect of leg with fibrogranular base and maceration periwound, severe serous drainage/weeping noted ORTHO: Pain on palpation RLE erythema. No pain on palpation LLE. - Neurological Exam Neurological exam: Alert, Oriented x3 - Psychiatric Exam Psychiatric exam: Normal Affect, Normal Mood Results - Vital Signs Recent Vital Signs: Last Vital Signs Temp 99.4 F 07/18/17 12:00 Pulse 100 H 07/18/17 12:00 Resp 18 07/18/17 12:00 BP 107/62 07/18/17 12:00 Pulse Ox 97 07/18/17 06:00 - Labs Result Diagrams: 07/18/17 06:30 07/18/17 05:30 Labs: Laboratory Results - last 24 hr 07/18/17 07/18/17 07/18/17 05:30 05:30 05:30 WBC RBC Hgb Hct MCV MCH MCHC RDW Plt Count MPV Gran % Lymph % (Auto) [place] % (Auto) Eos % (Auto) Baso % (Auto) Gran # Lymph # (Auto) [place] # (Auto) Eos # (Auto) Baso # (Auto) ESR PT 19.0 H INR 1.64 H Sodium 136 Potassium 3.7 Chloride 102 Carbon Dioxide 30 Anion Gap 8 L BUN 14 Creatinine 0.8 Est GFR ( Amer) > 60 Est GFR (Non-Af Amer) > 60 POC Glucose (mg/dL) Random Glucose 139 H Hemoglobin A1c Calcium 8.5 Total Bilirubin 1.9 H AST 25 ALT 25 Alkaline Phosphatase 83 Troponin I C-React Prot High Sens NT-Pro-B Natriuret Pep Total Protein 7.0 Albumin 3.0 Globulin 3.9 Albumin/Globulin Ratio 0.8 L Procalcitonin Hepatitis A IgM Ab Negative Hep Bs Antigen Negative Hep B Core IgM Ab Negative Hepatitis C Antibody Negative 07/18/17 07/18/17 07/18/17 06:30 06:30 06:30 WBC RBC Hgb Hct MCV MCH MCHC RDW Plt Count MPV Gran % Lymph % (Auto) [place] % (Auto) Eos % (Auto) Baso % (Auto) Gran # Lymph # (Auto) [place] # (Auto) Eos # (Auto) Baso # (Auto) ESR 115 H PT INR Sodium Potassium Chloride Carbon Dioxide Anion Gap BUN Creatinine Est GFR ( Amer) Est GFR (Non-Af Amer) POC Glucose (mg/dL) Random Glucose Hemoglobin A1c 6.5 Calcium Total Bilirubin AST ALT Alkaline Phosphatase Troponin I C-React Prot High Sens NT-Pro-B Natriuret Pep Total Protein Albumin Globulin Albumin/Globulin Ratio Procalcitonin 10.32 H Hepatitis A IgM Ab Hep Bs Antigen Hep B Core IgM Ab Hepatitis C Antibody 07/18/17 07/18/17 07/18/17 06:30 06:30 06:30 WBC 8.0 D RBC 3.82 Hgb 10.8 L Hct 33.4 L MCV 87.4 MCH 28.3 MCHC 32.3 RDW 15.1 H Plt Count 161 MPV 9.5 Gran % 83.0 H Lymph % (Auto) 7.3 L [place] % (Auto) 8.7 H Eos % (Auto) 0.9 L Baso % (Auto) 0.1 Gran # 6.67 H Lymph # (Auto) 0.6 L [place] # (Auto) 0.7 H Eos # (Auto) 0.1 Baso # (Auto) 0.01 ESR PT INR Sodium Potassium Chloride Carbon Dioxide Anion Gap BUN Creatinine Est GFR ( Amer) Est GFR (Non-Af Amer) POC Glucose (mg/dL) Random Glucose Hemoglobin A1c Calcium Total Bilirubin AST ALT Alkaline Phosphatase Troponin I < 0.01 C-React Prot High Sens > 15.00 H NT-Pro-B Natriuret Pep 313 Total Protein Albumin Globulin Albumin/Globulin Ratio Procalcitonin Hepatitis A IgM Ab Hep Bs Antigen Hep B Core IgM Ab Hepatitis C Antibody 07/18/17 07/18/17 07/18/17 09:07 11:36 13:00 WBC RBC Hgb Hct MCV MCH MCHC RDW Plt Count MPV Gran % Lymph % (Auto) [place] % (Auto) Eos % (Auto) Baso % (Auto) Gran # Lymph # (Auto) [place] # (Auto) Eos # (Auto) Baso # (Auto) ESR PT INR Sodium Potassium Chloride Carbon Dioxide Anion Gap BUN Creatinine Est GFR ( Amer) Est GFR (Non-Af Amer) POC Glucose (mg/dL) 151 H 156 H Random Glucose Hemoglobin A1c Calcium Total Bilirubin AST ALT Alkaline Phosphatase Troponin I < 0.01 C-React Prot High Sens NT-Pro-B Natriuret Pep Total Protein Albumin Globulin Albumin/Globulin Ratio Procalcitonin Hepatitis A IgM Ab Hep Bs Antigen Hep B Core IgM Ab Hepatitis C Antibody Assessment & Plan - Assessment and Plan (Free Text) Assessment: 47 year old male with sepsis, RLE cellulitis, b/l chronic nonhealing ulcerations , Plan: Patient seen and evaluated with attending, Dr. Singer Afebrile currently (Tmax 102.4 yesterday), WBC 8.0 (decreasing-12.2 yesterday), ESR 115, procalcitonin 10.32 Bilateral venous duplex (07/17/17): No evidence for DVT b/l however exam very limited 2/2 body habitus and edema Right foot XR (07/18/17): Negative Right tib-fib XR (07/18/17): Negative Left leg WCx taken yesterday 07/17/17 in wound care center, pending Right leg WCx taken today 07/18/17 Wounds cleansed with saline and dressed with maxsorb, DSD, DARCI Continue to monitor erythema RLE Continue abx per ID - started IV Vancomycin and Merrem pending wound cx, blood cx Podiatry will continue to follow while in house <Charlie Singer - Last Filed: 07/18/17 18:35> Meds - Medications Medications: Current Medications Acetaminophen (Tylenol 325mg Tab) 650 mg PO Q6H PRN PRN Reason: Fever >100.4 F Last Admin: 07/18/17 16:48 Dose: 650 mg Enoxaparin Sodium (Lovenox) 40 mg SC DAILY [facility] PRN Reason: Protocol Last Admin: 07/18/17 09:15 Dose: 40 mg Famotidine (Pepcid) 20 mg PO BID [facility] Last Admin: 07/18/17 17:38 Dose: 20 mg Sodium Chloride (Sodium Chloride 0.9%) 1,000 mls @ 125 mls/hr IV .Q8H [facility] Last Admin: 07/18/17 15:08 Dose: Not Given Vancomycin HCl 1.5 gm/ Sodium (Chloride) 500 mls @ 167 mls/hr IVPB 0600,1800 [facility] Last Admin: 07/18/17 17:38 Dose: 167 mls/hr Meropenem 1 gm/ Sodium (Chloride) 100 mls @ 100 mls/hr IVPB Q8 [facility] PRN Reason: Protocol Stop: 07/25/17 08:31 Last Admin: 07/18/17 15:08 Dose: 100 mls/hr Insulin Human Regular (Humulin R Low) 0 units SC ACHS [facility] PRN Reason: Protocol Last Admin: 07/18/17 16:43 Dose: Not Given Results - Vital Signs Recent Vital Signs: Last Vital Signs Temp 99.9 F H 07/18/17 17:48 Pulse 108 H 07/18/17 18:00 Resp 20 07/18/17 17:47 BP 125/71 07/18/17 17:47 Pulse Ox 97 07/18/17 06:00 - Labs Result Diagrams: 07/18/17 06:30 07/18/17 05:30 Labs: Laboratory Results - last 24 hr 07/18/17 07/18/17 07/18/17 05:30 05:30 05:30 WBC RBC Hgb Hct MCV MCH MCHC RDW Plt Count MPV Gran % Lymph % (Auto) [place] % (Auto) Eos % (Auto) Baso % (Auto) Gran # Lymph # (Auto) [place] # (Auto) Eos # (Auto) Baso # (Auto) ESR PT 19.0 H INR 1.64 H Sodium 136 Potassium 3.7 Chloride 102 Carbon Dioxide 30 Anion Gap 8 L BUN 14 Creatinine 0.8 Est GFR ( Amer) > 60 Est GFR (Non-Af Amer) > 60 POC Glucose (mg/dL) Random Glucose 139 H Hemoglobin A1c Calcium 8.5 Total Bilirubin 1.9 H AST 25 ALT 25 Alkaline Phosphatase 83 Troponin I C-React Prot High Sens NT-Pro-B Natriuret Pep Total Protein 7.0 Albumin 3.0 Globulin 3.9 Albumin/Globulin Ratio 0.8 L Procalcitonin Hepatitis A IgM Ab Negative Hep Bs Antigen Negative Hep B Core IgM Ab Negative Hepatitis C Antibody Negative 07/18/17 07/18/17 07/18/17 06:30 06:30 06:30 WBC RBC Hgb Hct MCV MCH MCHC RDW Plt Count MPV Gran % Lymph % (Auto) [place] % (Auto) Eos % (Auto) Baso % (Auto) Gran # Lymph # (Auto) [place] # (Auto) Eos # (Auto) Baso # (Auto) ESR 115 H PT INR Sodium Potassium Chloride Carbon Dioxide Anion Gap BUN Creatinine Est GFR ( Amer) Est GFR (Non-Af Amer) POC Glucose (mg/dL) Random Glucose Hemoglobin A1c 6.5 Calcium Total Bilirubin AST ALT Alkaline Phosphatase Troponin I C-React Prot High Sens NT-Pro-B Natriuret Pep Total Protein Albumin Globulin Albumin/Globulin Ratio Procalcitonin 10.32 H Hepatitis A IgM Ab Hep Bs Antigen Hep B Core IgM Ab Hepatitis C Antibody 07/18/17 07/18/17 07/18/17 06:30 06:30 06:30 WBC 8.0 D RBC 3.82 Hgb 10.8 L Hct 33.4 L MCV 87.4 MCH 28.3 MCHC 32.3 RDW 15.1 H Plt Count 161 MPV 9.5 Gran % 83.0 H Lymph % (Auto) 7.3 L [place] % (Auto) 8.7 H Eos % (Auto) 0.9 L Baso % (Auto) 0.1 Gran # 6.67 H Lymph # (Auto) 0.6 L [place] # (Auto) 0.7 H Eos # (Auto) 0.1 Baso # (Auto) 0.01 ESR PT INR Sodium Potassium Chloride Carbon Dioxide Anion Gap BUN Creatinine Est GFR ( Amer) Est GFR (Non-Af Amer) POC Glucose (mg/dL) Random Glucose Hemoglobin A1c Calcium Total Bilirubin AST ALT Alkaline Phosphatase Troponin I < 0.01 C-React Prot High Sens > 15.00 H NT-Pro-B Natriuret Pep 313 Total Protein Albumin Globulin Albumin/Globulin Ratio Procalcitonin Hepatitis A IgM Ab Hep Bs Antigen Hep B Core IgM Ab Hepatitis C Antibody 07/18/17 07/18/17 07/18/17 09:07 11:36 13:00 WBC RBC Hgb Hct MCV MCH MCHC RDW Plt Count MPV Gran % Lymph % (Auto) [place] % (Auto) Eos % (Auto) Baso % (Auto) Gran # Lymph # (Auto) [place] # (Auto) Eos # (Auto) Baso # (Auto) ESR PT INR Sodium Potassium Chloride Carbon Dioxide Anion Gap BUN Creatinine Est GFR ( Amer) Est GFR (Non-Af Amer) POC Glucose (mg/dL) 151 H 156 H Random Glucose Hemoglobin A1c Calcium Total Bilirubin AST ALT Alkaline Phosphatase Troponin I < 0.01 C-React Prot High Sens NT-Pro-B Natriuret Pep Total Protein Albumin Globulin Albumin/Globulin Ratio Procalcitonin Hepatitis A IgM Ab Hep Bs Antigen Hep B Core IgM Ab Hepatitis C Antibody Attending/Attestation - Attestation I have personally seen and examined this patient.: Yes I have fully participated in the care of the patient.: Yes I have reviewed all pertinent clinical information: Yes
--- NOTE | 2017-07-18 19:16 | CP.PCM.PN ---
Subjective - Date & Time of Evaluation Date of Evaluation: 07/18/17 Time of Evaluation: 19:07 - Subjective Subjective: Patient is a 47 yo man with PMH diabetes, obesity, and chronic LE lymphedema that presented to ED last night via private vehicle from wound care clinic for evaluation of RLE pain and redness. The pt was sent to the ED from wound care by Dr. Tejeda (podiatry) after she noticed concerning skin changes over his chronic venous stasis ulcers. The pt states that pain started 3 days ago (Monday ). Pain was worse with walking. He walks with a cane normally. He notes dyspnea at rest, vague L non radiating chest pain (10/10 in severity) with no exacerbating or relieving factors, as well as general malaise. CT was ordered following pts elevated D-dimer. CT results were negative for acute PE. Tylenol, Toradol and fluids were given in the ED last night. Patient was evaluated at bedside requesting breakfast with no acute complaints and in no acute distress. Denied abdominal pain, cough, dizziness, dysuria. PEx: General: obese man, diaphoretic, NAD. Lungs: No accessory m. use. Increased work of breathing. Lungs CTAB. No wheezing , crackles. Cardiac: RRR. No murmurs, gallops, clicks. No precordial lift. Abdomen: obese abdomen. Normal active bowel sounds in all 4 quadrants. Soft, NT , ND. 1+ R inguinal LAD. No L inguinal LAD present. Lower extremities: DARCI wraps present on bilat LE. 1+ DP pulses, equal bilaterally. RLE significant for Rubor and callor present over distal 2/3 of RLE. Proximal border of erythema marked with marker. 1+ pitting edema. Diffuse hyperpigmentation and macular lesions consistent with venous stasis dermatitis. Scaling and old excoriations present over anterior shins. No drainage observed. Tenderness to palpation over proximal ahmadi. LLE significant for skin changes consistent with venous stasis dermatitis. No excoriations appreciated. DARCI wrap in place. No redness or warmth. Nontender to palpation. Objective - Vital Signs/Intake and Output Vital Signs (last 24 hours): Temp Pulse Resp BP Pulse Ox 99.9 F H 108 H 20 125/71 97 07/18/17 17:48 07/18/17 18:00 07/18/17 17:47 07/18/17 17:47 07/18/17 06:00 Intake and Output: 07/18/17 07/19/17 18:59 06:59 Intake Total 960 Output Total 3 Balance 957 - Medications Medications: Current Medications Acetaminophen (Tylenol 325mg Tab) 650 mg PO Q6H PRN PRN Reason: Fever >100.4 F Last Admin: 07/18/17 16:48 Dose: 650 mg Enoxaparin Sodium (Lovenox) 40 mg SC DAILY [facility] PRN Reason: Protocol Last Admin: 07/18/17 09:15 Dose: 40 mg Famotidine (Pepcid) 20 mg PO BID [facility] Last Admin: 07/18/17 17:38 Dose: 20 mg Sodium Chloride (Sodium Chloride 0.9%) 1,000 mls @ 125 mls/hr IV .Q8H [facility] Last Admin: 07/18/17 15:08 Dose: Not Given Vancomycin HCl 1.5 gm/ Sodium (Chloride) 500 mls @ 167 mls/hr IVPB 0600,1800 [facility] Last Admin: 07/18/17 17:38 Dose: 167 mls/hr Meropenem 1 gm/ Sodium (Chloride) 100 mls @ 100 mls/hr IVPB Q8 [facility] PRN Reason: Protocol Stop: 07/25/17 08:31 Last Admin: 07/18/17 15:08 Dose: 100 mls/hr Insulin Human Regular (Humulin R Low) 0 units SC ACHS [facility] PRN Reason: Protocol Last Admin: 07/18/17 16:43 Dose: Not Given - Labs Labs: 07/18/17 06:30 07/18/17 05:30 PT 19.0 SECONDS (9.4-12.5) H 07/18/17 05:30 INR 1.64 (0.93-1.08) H 07/18/17 05:30 APTT 32.5 Seconds (25.1-36.5) 07/17/17 15:40 Assessment and Plan - Assessment and Plan (Free Text) Assessment: 47M with PMH of DM, obesity, and chronic LE lymphedema with venous stasis dermatitis presenting for RLE pain and skin changes. Plan: 1. Right LE soft tissue infection, most likely cellulitis, secondary to chronic venous stasis dermatitis and DM. Rule out osteomyelitis - XR Lower extremity ordered to evaluate soft tissue changes and bony involvement; reveal no acute findings - ESR, CRP>15 - A1c; 6.5 - Wound culture: results still pending - Infectious disease consult: Dr. Susan butt appreciated - Podiatry consult: daquan Rizo appreciated - Continue Vancomycin and Merrem as per ID 2. Sepsis: leukocytosis 12.2, fever, tachypnea, RLE cellulitis vs osteomyelitis - Blood cultures, Pro-al - UA and urine culture: negative - Fluid maintenance NS@125 - Continue Tylenol for fever - Echocardiogram ordered; results pending 3. Dyspnea and chest pain - BNP 313, troponin negative x2 - EKG: r/o ACS. Original and repeat EKG reveal sinus tachycardia, no acute abnormalities - CXR 07/17/17 demonstrated no acute abnormalities - D-dimer elevated, CTA 07/17/17 showed no findings consistent with Acute PE. 4. Coagulopathy: INR low, hypoalbuminemia. Possibly secondary to antibiotic use vs fatty liver disease - Vitamin K challenge. Repeat labs in AM to determine response to vitamin K. DVT PFX: enoxaparin SC
[2017-07-18] MEDS ORDERED: Phytonadione 10 MG in Sodium Chloride 0.9% 50 ML IV ONE (19:37)
[2017-07-19] MEDS: Meropenem 1 GM in Sodium Chloride 0.9% 100 ML IVPB SCH ×3 (05:04→22:18)
[2017-07-19] MEDS: Vancomycin 1.5 GM in Sodium Chloride 0.9% 500 ML IVPB SCH (05:04)
[2017-07-19 07:08] LABS: ALB/GLOB RATIO 0.7 (1.1-1.8); ALBUMIN 2.9 g/dL (3.0-4.8); ALT/SGPT 35 U/L (7-56); AST/SGOT 33 U/L (17-59); BLOOD UREA NITROGEN 12 mg/dL (7-21); CALCIUM 8.1 mg/dL (8.4-10.5); GFR AFRICAN-AMERICAN > 60; GFR NON-AFRICAN AMERICAN > 60
[2017-07-19 07:20] LABS: BASO # 0.02 K/mm3 (0.0-2.0); BASO % 0.3 % (0.0-3.0); EOS # 0.1 (0.0-0.7); EOS % 1.3 % (1.5-5.0); GRAN # 6.19 (1.4-6.5); GRAN % 77.2 % (50.0-68.0); HEMOGLOBIN 9.9 g/dL (14.0-18.0); LYMPH # 0.8 (1.2-3.4); LYMPH % 9.9 % (22.0-35.0); MEAN CELL VOLUME 86.8 fl (80.0-105.0); MEAN CORPUSCULAR HEMOGLOBIN 27.8 pg (25.0-35.0); MEAN PLATELET VOLUME 9.5 fl (7.0-11.0); MONO # 0.9 (0.1-0.6); MONO % 11.3 % (1.0-6.0); RBC 3.56 10^6/uL (3.5-6.1); RED CELL DISTRIBUTION WIDTH 14.8 % (11.5-14.5)
[2017-07-19] MEDS: Insulin Reg-LOW-Coverage SC SCH ×4 (07:56→21:54)
[2017-07-19 07:58] LABS: INR 1.33 (0.93-1.08); PARTIAL THROMBOPLASTIN TIME 30.7 Seconds (25.1-36.5); PROTHROMBIN TIME 15.4 SECONDS (9.4-12.5)
--- NOTE | 2017-07-19 08:46 | CARD ---
APPROVED REPORT EKG Measurement Heart [id number] <Conclusion> Sinus tachycardia Otherwise normal ECG
[2017-07-19] MEDS ORDERED: Phytonadione 10 MG in Sodium Chloride 0.9% 50 ML IV ONE (08:57)
[2017-07-19] MEDS ORDERED: Potassium Chloride 20 mEq ER Tab PO ONE (09:45)
--- NOTE | 2017-07-19 10:10 | CARD ---
APPROVED REPORT EXAM: Two-dimensional and M-mode echocardiogram with Doppler and color Doppler. INDICATION Dyspnea 2D DIMENSIONS Left Atrium (2D)4.4 (1.6-4.0cm)IVSd1.0 (0.7-1.1cm) LVDd5.5 (3.9-5.9cm)PWd1.1 (0.7-1.1cm) LVDs3.9 (2.5-4.0cm)FS (%) 29.8 % LVEF (%)56.3 (>50%) M-Mode DIMENSIONS Aortic Root3.40 (2.2-3.7cm)Aortic Cusp Exc.2.00 (1.5-2.0cm) Aortic Valve AoV Peak Nshgjlkc562.0cm/Deja Peak GR.11mmHg Mitral Valve MV E Nrqpgqry600.0cm/sMV A Daykzcvo536.0cm/sE/A ratio0.9 TDI Lateral E' Peak V17.90cm/sMedial E' Peak V14.90cm/sE/Lateral E'5.8 E/Medial E'7.0 Pulmonary Valve PV Peak Ukhzhbce65.1cm/sPV Peak Grad.4mmHg Tricuspid Valve TR Peak Lyuunxab435bq/sRAP JZWUTYOE00swOxNW Peak Gr.19mmHg [id number] LEFT VENTRICLE The left ventricle is normal size. There is normal left ventricular wall thickness. The left ventricular function is normal.EF-55% There is normal LV segmental wall motion. Transmitral Doppler flow pattern is Grade III-reversible restrictive diastolic dysfunction. No left ventricle thrombus noted on this study. There is no ventricular septal defect visualized. There is no left ventricular aneurysm. There is no mass noted in the left ventricle. RIGHT VENTRICLE The right ventricle is normal size. There is normal right ventricular wall thickness. The right ventricular systolic function is normal. ATRIA The left atrium is mildly dilated. The right atrium size is normal. The interatrial septum is intact with no evidence for an atrial septal defect. AORTIC VALVE The aortic valve is thickened but opens well. The aortic valve is mildly to moderately sclerotic. There is trace aortic regurgitation. There is no aortic valvular stenosis. There is no aortic valvular vegetation. MITRAL VALVE The mitral valve is thickened but opens well. Mitral regurgitation is trace. There is no mitral valve stenosis. There is no evidence of mitral valve prolapse. TRICUSPID VALVE The tricuspid valve leaflets are thickened , but open well. There is trace tricuspid regurgitation.RVSP-29 mmof hg. There is no tricuspid valve stenosis. There is no tricuspid valve prolapse or vegetation. PULMONIC VALVE The pulmonary valve is normal in structure. GREAT VESSELS The aortic root is normal in size. The ascending aorta is normal in size. The pulmonary artery is normal. The IVC is normal in size and collapses >50% with inspiration. PERICARDIAL EFFUSION There is no pleural effusion. There is no pericardial effusion. <Conclusion> The left ventricle is normal size. There is normal left ventricular wall thickness. The left ventricular function is normal.EF-55% There is trace aortic regurgitation. Mitral regurgitation is trace. There is trace tricuspid regurgitation.RVSP-29 mmof hg. No Vegetation or thrombus noted.
[2017-07-19] MEDS: Sodium Chloride 0.9% 1,000 ML IV SCH (12:01)
[2017-07-19] MEDS: Enoxaparin 40 mg Syringe SC SCH (14:41)
--- NOTE | 2017-07-19 15:48 | CP.PCM.PN ---
Subjective - Date & Time of Evaluation Date of Evaluation: 07/19/17 Time of Evaluation: 09:00 - Subjective Subjective: Still with leg pain, no fevers, not in distress, no diarrhea or nausea. Objective - Vital Signs/Intake and Output Vital Signs (last 24 hours): Temp Pulse Resp BP Pulse Ox 98 F 95 H 22 140/70 96 07/19/17 11:45 07/19/17 14:00 07/19/17 11:45 07/19/17 11:45 07/19/17 05:16 Intake and Output: 07/19/17 07/19/17 06:59 18:59 Intake Total 240 300 Output Total 500 600 Balance -260 -300 - Medications Medications: Current Medications Acetaminophen (Tylenol 325mg Tab) 650 mg PO Q6H PRN PRN Reason: Fever >100.4 F Last Admin: 07/18/17 16:48 Dose: 650 mg Enoxaparin Sodium (Lovenox) 40 mg SC DAILY [facility] PRN Reason: Protocol Last Admin: 07/19/17 14:41 Dose: 40 mg Famotidine (Pepcid) 20 mg PO BID [facility] Last Admin: 07/19/17 09:54 Dose: 20 mg Sodium Chloride (Sodium Chloride 0.9%) 1,000 mls @ 125 mls/hr IV .Q8H [facility] Last Admin: 07/19/17 12:01 Dose: 125 mls/hr Meropenem 1 gm/ Sodium (Chloride) 100 mls @ 100 mls/hr IVPB Q8 [facility] PRN Reason: Protocol Stop: 07/25/17 08:31 Last Admin: 07/19/17 14:36 Dose: 100 mls/hr Linezolid (Zyvox 600mg/300ml D5w) 600 mg in 300 mls @ 200 mls/hr IVPB Q12 [facility] PRN Reason: Protocol Stop: 07/26/17 15:41 Insulin Human Regular (Humulin R Low) 0 units SC ACHS [facility] PRN Reason: Protocol Last Admin: 07/19/17 12:36 Dose: 1 units Sodium Chloride ([place] Nasal [place]) 0 ml NS TID [facility] - Labs Labs: 07/19/17 06:00 07/19/17 05:15 PT 15.4 SECONDS (9.4-12.5) H 07/19/17 06:30 INR 1.33 (0.93-1.08) H 07/19/17 06:30 APTT 30.7 Seconds (25.1-36.5) 07/19/17 06:30 - Constitutional Appears: Chronically Ill - Head Exam Head Exam: NORMAL INSPECTION - ENT Exam ENT Exam: Mucous Membranes Moist - Neck Exam Neck Exam: absent: Meningismus - Respiratory Exam Respiratory Exam: Decreased Breath Sounds - Cardiovascular Exam Cardiovascular Exam: +S1, +S2 - GI/Abdominal Exam GI & Abdominal Exam: Soft. absent: Tenderness - Extremities Exam Additional comments: both lower extremities still with edema Assessment and Plan - Assessment and Plan (Free Text) Plan: Assessment sepsis due to bilateral lower extremity skin and skin structure infection in a patient with chronic lymphedema and chronic venous stasis ulcers - has long standing history, and he previously grew multidrug-resistant Klebsiella and Proteus history of lower extremity cellulitis in the past obesity with BMI 51 history of urinary bladder infections in the past Plan will change IV Vancomycin to Zyvox and continue Merrem day 2; wound cx showing Proteus and E. faecalis, follow up blood cx Follow up further Podiatry recommendations and evaluation Will monitor clinically
--- NOTE | 2017-07-19 16:19 | CP.PCM.PN ---
<Trever Gunderson - Last Filed: 07/20/17 06:25> Subjective - Date & Time of Evaluation Date of Evaluation: 07/19/17 Time of Evaluation: 07:30 - Subjective Subjective: 47M seen an examined at bedside. No acute complaints, no acute distress. Admission day 2 for RLE cellulitis. Pt did develop fever yesterday 16:48 of 102. Fever resolves with Tylenol and pt remains afebrile today. He is still complaining of L sided chest pain, dry cough, and dyspnea. He has been eating and voiding normally. He denies abdominal pain, dizziness, dysuria. He did have a headache for a while yesterday, but this has almost totally resolved. Of note: the pt was taking furosemide 40 mg #20 for 20 days, last filled at his pharmacy July 2016. He states that he has not needed this for a long time. Vitals PEx: Well-appearing obese man, resting comfortably in bed. No acute distress. Lungs: No accessory m. use. Increased work of breathing with no accessory m. use. Lungs CTAB. No wheezing, crackles. Cardiac: RRR no murmurs, gallops, rubs. No precordial lift. Abdomen: obese abdomen. Normal active bowel sounds in all 4 quadrants. Soft, NT , ND. 1+ R inguinal LAD. No L inguinal LAD present. Lower extremities: DARCI wraps present bilaterally. 1+ DP pulses equal bilaterally. RLE significant for rubor and callor over distal 2/3s of RLE. Purple marker present denoting border of erythema, new advancing proximal border drawn with marker on exam, dated. Scaling and old excoriations present over anterior shins, unchanged. No new drainage. Tenderness to palpation observed over medial aspect of proximal tib-fib. No fluctuance or induration. Grossly unchanged from prior exam. LLE significant for skin changes consistent with venous stasis dermatitis and lymphedema. No excoriations appreciated. DARCI wrap in place. No redness/warmth observed over proximal tib-fib. Leg remains grossly non-tender to palpation. Assessment: 47M with PMH of DM, obesity, and chronic idiopathic LE lymphedema with venous stasis dermatitis with RLE pain, fever, and skin changes. Plan: 1. RIGHT LE soft tissue infection, most likely cellulitis, secondary to chronic venous stasis dermatitis and DM. Rule out osteomyelitis. - Wound culture from LEFT leg ulcer returns significant for Proteus mirabilis and Enterococcus faecialis. Sensitivities reveal Proteus sensitive to Meropenem , ertapenem. Enterococcus sensitive to vancomycin and piperacillin-tazobactam. Multi-drug resistant organisms - Await culture results from RIGHT LE soft tissues. - Infectious disease consult: Dr. Og, recommendations appreciated - Podiatry consult: Dr. Singer, recs appreciated - Continue vancomycin and meropenem as per ID - Continue contact precautions 2. Sepsis: leukocytosis trending downward from 12.2 to 9.9 today. Last fever yesterday 1648. - Urine cultures negative, blood cultures negative - Pro-al within normal limits - Fluid maintenance NS@125 - Continue Tylenol for fever 3. Chest pain + SOB: BNP elevated, troponins negative x2, ECG significant for sinus tach, CTA and CXR both negative. Vague chest pain and dyspnea is unchanged from yesterday. Consider possible obesity hypoventilation syndrome vs deconditioning vs esophageal reflux. - Echo results return without significant abnormalities. Trace mitral and aortic regurgitation. EF is 55%. No LV hypertrophy. - Continue incentive spirometry - PT ordered for deconditioning and ambulation 4. Coagulopathy: INR 1.33 (down from 1.5), PTT 15.4 (down from 19.0 and 20.4), hypoalbuminemia. Possibly secondary to antibiotic use/vitamin K depletion vs FOLEY GI prophylaxis: famotidine 20 mg bid DVT prophylaxis: continue LMWH Objective - Vital Signs/Intake and Output Vital Signs (last 24 hours): Temp Pulse Resp BP Pulse Ox 98 F 95 H 22 140/70 96 07/19/17 11:45 07/19/17 14:00 07/19/17 11:45 07/19/17 11:45 07/19/17 05:16 Intake and Output: 07/19/17 07/19/17 06:59 18:59 Intake Total 240 300 Output Total 500 600 Balance -260 -300 - Medications Medications: Current Medications Acetaminophen (Tylenol 325mg Tab) 650 mg PO Q6H PRN PRN Reason: Fever >100.4 F Last Admin: 07/18/17 16:48 Dose: 650 mg Enoxaparin Sodium (Lovenox) 40 mg SC DAILY [facility] PRN Reason: Protocol Last Admin: 07/19/17 14:41 Dose: 40 mg Famotidine (Pepcid) 20 mg PO BID [facility] Last Admin: 07/19/17 09:54 Dose: 20 mg Sodium Chloride (Sodium Chloride 0.9%) 1,000 mls @ 125 mls/hr IV .Q8H [facility] Last Admin: 07/19/17 12:01 Dose: 125 mls/hr Meropenem 1 gm/ Sodium (Chloride) 100 mls @ 100 mls/hr IVPB Q8 [facility] PRN Reason: Protocol Stop: 07/25/17 08:31 Last Admin: 07/19/17 14:36 Dose: 100 mls/hr Linezolid (Zyvox 600mg/300ml D5w) 600 mg in 300 mls @ 200 mls/hr IVPB Q12 [facility] PRN Reason: Protocol Stop: 07/26/17 15:41 Insulin Human Regular (Humulin R Low) 0 units SC ACHS [facility] PRN Reason: Protocol Last Admin: 07/19/17 12:36 Dose: 1 units Sodium Chloride ([place] Nasal [place]) 0 ml NS TID [facility] - Labs Labs: 07/19/17 06:00 07/19/17 05:15 PT 15.4 SECONDS (9.4-12.5) H 07/19/17 06:30 INR 1.33 (0.93-1.08) H 07/19/17 06:30 APTT 30.7 Seconds (25.1-36.5) 07/19/17 06:30 <Ld Richardson - Last Filed: 07/20/17 14:41> Objective - Vital Signs/Intake and Output Vital Signs (last 24 hours): Temp Pulse Resp BP Pulse Ox 98.5 F 88 20 104/78 95 07/20/17 11:35 07/20/17 11:35 07/20/17 11:35 07/20/17 11:35 07/20/17 06:00 Intake and Output: 07/20/17 07/20/17 06:59 18:59 Intake Total 1900 Balance 1900 - Medications Medications: Current Medications Acetaminophen (Tylenol 325mg Tab) 650 mg PO Q6H PRN PRN Reason: Fever >100.4 F Last Admin: 07/18/17 16:48 Dose: 650 mg Clotrimazole (Lotrimin 1%) 0 gm TOP BID [facility] Last Admin: 07/20/17 09:34 Dose: 1 10 Enoxaparin Sodium (Lovenox) 40 mg SC DAILY [facility] PRN Reason: Protocol Last Admin: 07/20/17 09:31 Dose: 40 mg Famotidine (Pepcid) 20 mg PO BID [facility] Last Admin: 07/20/17 09:30 Dose: 20 mg Linezolid (Zyvox 600mg/300ml D5w) 600 mg in 300 mls @ 200 mls/hr IVPB Q12 [facility] PRN Reason: Protocol Stop: 07/26/17 15:41 Last Admin: 07/20/17 09:31 Dose: 200 mls/hr Meropenem (Merrem Iv 1 Gm Premix) 50 mls @ 100 mls/hr IVPB Q8 [facility] PRN Reason: Protocol Stop: 07/25/17 08:31 Insulin Human Regular (Humulin R Low) 0 units SC ACHS [facility] PRN Reason: Protocol Last Admin: 07/20/17 12:40 Dose: Not Given Nystatin (Nystop Topical Powder) 0 gm TOP BID [facility] Last Admin: 07/20/17 09:34 Dose: 1 10 Sodium Chloride ([place] Nasal [place]) 0 ml NS TID [facility] Last Admin: 07/20/17 09:34 Dose: 1 sprays - Labs Labs: 07/20/17 05:30 07/20/17 05:30 PT 15.4 SECONDS (9.4-12.5) H 07/19/17 06:30 INR 1.33 (0.93-1.08) H 07/19/17 06:30 APTT 30.7 Seconds (25.1-36.5) 07/19/17 06:30 Attending/Attestation - Attestation I have personally seen and examined this patient.: Yes I have fully participated in the care of the patient.: Yes I have reviewed all pertinent clinical information, including history, physical exam and plan: Yes Notes (Text): I have seen and examined the patient at bedside. Agree with the above note with the following additions/ exceptions: Briefly this is 47 year old male with history of DM-2, Morbid obesity, chronic idiopathic lymphedema, bilateral stasis dermatitis who was admitted for evaluation of RLE cellulitis and posterior left calf wound. Wound culture from LEFT leg ulcer returns significant for Proteus mirabilis and Enterococcus faecialis. ID and podiatry consult appreciated. Continue vancomycin and meropenem. Continue contact precautions. Leukocytosis improving, Blood and urine culture negative. Procal elevated. Patient also complained of chest pain and sob. Serial tropm EKG, CXR and CTA negative. Echo revealed EF 55%. Continue incentive spirometry. PT recommended HWS vs DIAMOND. Upon discharge patient will follow up with Dr Oliver. Dr Ld iRchardson
[2017-07-19] MEDS: Linezolid 600 mg in D5W 300 ml 600 MG/300 ML BAG IVPB SCH (17:27)
--- NOTE | 2017-07-19 18:00 | CP.PCM.PN ---
Subjective - Date & Time of Evaluation Date of Evaluation: 07/19/17 Time of Evaluation: 17:24 - Subjective Subjective: 4 yo old male morbidly obese with bilateral chronic lymphedema - pt hs history of ulcrations in the past - we have been using 4 layer compression dressings to control the edema in the legs since his insurance will not pay for custom compression stockings which he needs - pt developed a wound on the posterior left calf for which he had taken antibiotics and it was slowly getting smaller; he presented yesterday at the wound care center c/o of feeling sort of breath with chest pain and his right leg was noted to be cellulitic hot and swollen without any open wounds; he was sent to ER and worked up for DVT and PE - all tests were negative except the D Dimer and ESR both of which were elevated; he was admitted to acute care for IV antibiotics and follow up Objective - Vital Signs/Intake and Output Vital Signs (last 24 hours): Temp Pulse Resp BP Pulse Ox 98 F 95 H 22 140/70 96 07/19/17 11:45 07/19/17 14:00 07/19/17 11:45 07/19/17 11:45 07/19/17 05:16 Intake and Output: 07/19/17 07/19/17 06:59 18:59 Intake Total 240 300 Output Total 500 600 Balance -260 -300 - Medications Medications: Current Medications Acetaminophen (Tylenol 325mg Tab) 650 mg PO Q6H PRN PRN Reason: Fever >100.4 F Last Admin: 07/18/17 16:48 Dose: 650 mg Enoxaparin Sodium (Lovenox) 40 mg SC DAILY [facility] PRN Reason: Protocol Last Admin: 07/19/17 14:41 Dose: 40 mg Famotidine (Pepcid) 20 mg PO BID [facility] Last Admin: 07/19/17 09:54 Dose: 20 mg Sodium Chloride (Sodium Chloride 0.9%) 1,000 mls @ 125 mls/hr IV .Q8H [facility] Last Admin: 07/19/17 12:01 Dose: 125 mls/hr Meropenem 1 gm/ Sodium (Chloride) 100 mls @ 100 mls/hr IVPB Q8 [facility] PRN Reason: Protocol Stop: 07/25/17 08:31 Last Admin: 07/19/17 14:36 Dose: 100 mls/hr Linezolid (Zyvox 600mg/300ml D5w) 600 mg in 300 mls @ 200 mls/hr IVPB Q12 [facility] PRN Reason: Protocol Stop: 07/26/17 15:41 Insulin Human Regular (Humulin R Low) 0 units SC ACHS [facility] PRN Reason: Protocol Last Admin: 07/19/17 12:36 Dose: 1 units Sodium Chloride ([place] Nasal [place]) 0 ml NS TID [facility] - Labs Labs: 07/19/17 06:00 07/19/17 05:15 PT 15.4 SECONDS (9.4-12.5) H 07/19/17 06:30 INR 1.33 (0.93-1.08) H 07/19/17 06:30 APTT 30.7 Seconds (25.1-36.5) 07/19/17 06:30 - Constitutional Appears: No Acute Distress - Exam External exam: Erythema, Swelling. absent: Ecchymosis - Extremities Exam Extremities Exam: Calf Tenderness, Normal Capillary Refill, Pedal Edema, Tenderness Additional comments: pt still with red hot swollen right leg with no open wounds; tender to touch along the GSV - no fluctuance no pustule no abcess noted; LLE with posterior calf wound which has been getting smaller; local erythema noted no pus moderte drainage noted; + yeast odor to the knee flexure area - moist with palpation but no pain; no inguinalle lymph nodes palpated in bilateral groin area Assessment and Plan - Assessment and Plan (Free Text) Assessment: cellulitis RLE bilateral lymphedema stasis ulcer to the left posterior calf improved Plan: spoke with Dr Zayas and went over pt's venous doppler which was inconclusive because of body habitas; Dr Zayas noted that the popleteal v was open - we reviewed the chest CT which was normal will continue to monitor swelling and edema cont antibiotics as per ID local care to legs with anti-fungal and nystatin to knee creases suggest repeat venous doppler in one week WBC noted to be normal
[2017-07-19] MEDS: Clotrimazole 1% Cream(30 gm) TOP SCH (18:51)
[2017-07-19] MEDS: Nystatin 100,000 Units/gm Topical Pow(15 gm) TOP SCH (18:54)
[2017-07-20] MEDS: Sodium Chloride 0.9% 1,000 ML IV SCH ×3 (00:39→09:33)
[2017-07-20] MEDS: Meropenem 1 GM in Sodium Chloride 0.9% 100 ML IVPB SCH (05:49)
[2017-07-20 06:19] LABS: BASO # 0.02 K/mm3 (0.0-2.0); BASO % 0.3 % (0.0-3.0); EOS # 0.1 (0.0-0.7); EOS % 1.5 % (1.5-5.0); GRAN # 5.87 (1.4-6.5); GRAN % 73.3 % (50.0-68.0); HEMOGLOBIN 10.3 g/dL (14.0-18.0); LYMPH # 1.2 (1.2-3.4); LYMPH % 14.5 % (22.0-35.0); MEAN CELL VOLUME 86.4 fl (80.0-105.0); MEAN CORPUSCULAR HEMOGLOBIN 27.9 pg (25.0-35.0); MEAN CORPUSCULAR HGB CONC 32.3 g/dl (31.0-37.0); MEAN PLATELET VOLUME 9.1 fl (7.0-11.0); MONO # 0.8 (0.1-0.6); MONO % 10.4 % (1.0-6.0); RBC 3.69 10^6/uL (3.5-6.1); RED CELL DISTRIBUTION WIDTH 14.8 % (11.5-14.5)
[2017-07-20 07:07] LABS: ALB/GLOB RATIO 0.7 (1.1-1.8); ALT/SGPT 32 U/L (7-56); AST/SGOT 42 U/L (17-59); BLOOD UREA NITROGEN 12 mg/dL (7-21); CALCIUM 8.2 mg/dL (8.4-10.5); GFR AFRICAN-AMERICAN > 60; GFR NON-AFRICAN AMERICAN > 60
[2017-07-20] MEDS: Insulin Reg-LOW-Coverage SC SCH ×4 (07:58→21:45)
[2017-07-20] MEDS: Linezolid 600 mg in D5W 300 ml 600 MG/300 ML BAG IVPB SCH ×2 (09:31→22:40)
[2017-07-20] MEDS: Enoxaparin 40 mg Syringe SC SCH (09:31)
[2017-07-20] MEDS: Clotrimazole 1% Cream(30 gm) TOP SCH ×2 (09:34→17:09)
[2017-07-20] MEDS: Nystatin 100,000 Units/gm Topical Pow(15 gm) TOP SCH ×2 (09:34→17:10)
--- NOTE | 2017-07-20 10:56 | CP.PCM.PN ---
Subjective - Date & Time of Evaluation Date of Evaluation: 07/20/17 Time of Evaluation: 09:25 - Subjective Subjective: Patient still with pain and swelling of both legs, more on the right, but a little less, no fevers overnight, no diarrhea. Objective - Vital Signs/Intake and Output Vital Signs (last 24 hours): Temp Pulse Resp BP Pulse Ox 98.6 F 84 20 141/77 95 07/20/17 06:00 07/20/17 06:00 07/20/17 06:00 07/20/17 06:00 07/20/17 06:00 Intake and Output: 07/20/17 07/20/17 06:59 18:59 Intake Total 1900 Balance 1900 - Medications Medications: Current Medications Acetaminophen (Tylenol 325mg Tab) 650 mg PO Q6H PRN PRN Reason: Fever >100.4 F Last Admin: 07/18/17 16:48 Dose: 650 mg Clotrimazole (Lotrimin 1%) 0 gm TOP BID [facility] Last Admin: 07/19/17 18:51 Dose: Not Given Enoxaparin Sodium (Lovenox) 40 mg SC DAILY [facility] PRN Reason: Protocol Last Admin: 07/19/17 14:41 Dose: 40 mg Famotidine (Pepcid) 20 mg PO BID [facility] Last Admin: 07/19/17 17:26 Dose: 20 mg Sodium Chloride (Sodium Chloride 0.9%) 1,000 mls @ 125 mls/hr IV .Q8H [facility] Last Admin: 07/20/17 00:42 Dose: Not Given Linezolid (Zyvox 600mg/300ml D5w) 600 mg in 300 mls @ 200 mls/hr IVPB Q12 [facility] PRN Reason: Protocol Stop: 07/26/17 15:41 Last Admin: 07/19/17 17:27 Dose: 200 mls/hr Meropenem (Merrem Iv 1 Gm Premix) 50 mls @ 100 mls/hr IVPB Q8 [facility] PRN Reason: Protocol Stop: 07/25/17 08:31 Insulin Human Regular (Humulin R Low) 0 units SC ACHS [facility] PRN Reason: Protocol Last Admin: 07/20/17 07:58 Dose: Not Given Nystatin (Nystop Topical Powder) 0 gm TOP BID [facility] Last Admin: 07/19/17 18:54 Dose: Not Given Sodium Chloride ([place] Nasal [place]) 0 ml NS TID [facility] Last Admin: 07/19/17 17:26 Dose: 2 sprays - Labs Labs: 07/20/17 05:30 07/20/17 05:30 PT 15.4 SECONDS (9.4-12.5) H 07/19/17 06:30 INR 1.33 (0.93-1.08) H 07/19/17 06:30 APTT 30.7 Seconds (25.1-36.5) 07/19/17 06:30 - Constitutional Appears: Non-toxic, Chronically Ill - Head Exam Head Exam: NORMAL INSPECTION - ENT Exam ENT Exam: Mucous Membranes Moist - Neck Exam Neck Exam: absent: Meningismus - Respiratory Exam Respiratory Exam: Decreased Breath Sounds - Cardiovascular Exam Cardiovascular Exam: +S1, +S2 - GI/Abdominal Exam GI & Abdominal Exam: Soft. absent: Tenderness - Extremities Exam Additional comments: both legs with erythema and swelling, more so on the right Assessment and Plan - Assessment and Plan (Free Text) Plan: Assessment sepsis due to bilateral lower extremity skin and skin structure infection in a patient with chronic lymphedema and chronic venous stasis ulcers - has long standing history, and he previously grew multidrug-resistant Klebsiella and Proteus history of lower extremity cellulitis in the past obesity with BMI 51 history of urinary bladder infections in the past Plan continue Zyvox day 2 and continue Merrem day 3; wound cx showing Proteus and E. faecalis, follow up blood cx - would recommend to continue IV antibiotics for now Follow up further Podiatry recommendations and evaluation Will continue to monitor clinically
--- NOTE | 2017-07-20 11:54 | CP.PCM.PN ---
Subjective - Date & Time of Evaluation Date of Evaluation: 07/20/17 Time of Evaluation: 11:00 - Subjective Subjective: Podiatry Progress Note - Dr. Tejeda 47 year old male patient PMHx of chronic idiopathic lymphedema, chronic back pain, herniated disks seen and evaluated at bedside for RLE cellulitis and b/l chronic nonhealing ulcerations. Patient is seen resting comfortably in bed and in NAD. Patient denies nausea, vomiting, fever, chills, chest pain or shortness of breathe. Patient has no new pedal complains. Objective - Vital Signs/Intake and Output Vital Signs (last 24 hours): Temp Pulse Resp BP Pulse Ox 98.5 F 88 20 104/78 95 07/20/17 11:35 07/20/17 11:35 07/20/17 11:35 07/20/17 11:35 07/20/17 06:00 Intake and Output: 07/20/17 07/20/17 06:59 18:59 Intake Total 1900 Balance 1900 - Medications Medications: Current Medications Acetaminophen (Tylenol 325mg Tab) 650 mg PO Q6H PRN PRN Reason: Fever >100.4 F Last Admin: 07/18/17 16:48 Dose: 650 mg Clotrimazole (Lotrimin 1%) 0 gm TOP BID [facility] Last Admin: 07/20/17 09:34 Dose: 1 10 Enoxaparin Sodium (Lovenox) 40 mg SC DAILY [facility] PRN Reason: Protocol Last Admin: 07/20/17 09:31 Dose: 40 mg Famotidine (Pepcid) 20 mg PO BID [facility] Last Admin: 07/20/17 09:30 Dose: 20 mg Linezolid (Zyvox 600mg/300ml D5w) 600 mg in 300 mls @ 200 mls/hr IVPB Q12 [facility] PRN Reason: Protocol Stop: 07/26/17 15:41 Last Admin: 07/20/17 09:31 Dose: 200 mls/hr Meropenem (Merrem Iv 1 Gm Premix) 50 mls @ 100 mls/hr IVPB Q8 [facility] PRN Reason: Protocol Stop: 07/25/17 08:31 Insulin Human Regular (Humulin R Low) 0 units SC ACHS [facility] PRN Reason: Protocol Last Admin: 07/20/17 07:58 Dose: Not Given Nystatin (Nystop Topical Powder) 0 gm TOP BID [facility] Last Admin: 07/20/17 09:34 Dose: 1 10 Sodium Chloride ([place] Nasal [place]) 0 ml NS TID [facility] Last Admin: 07/20/17 09:34 Dose: 1 sprays - Labs Labs: 07/20/17 05:30 07/20/17 05:30 PT 15.4 SECONDS (9.4-12.5) H 07/19/17 06:30 INR 1.33 (0.93-1.08) H 07/19/17 06:30 APTT 30.7 Seconds (25.1-36.5) 07/19/17 06:30 - Constitutional Appears: Well, Non-toxic, No Acute Distress - Extremities Exam Additional comments: VASC: DP pulses palpable 2/4 b/l. PT pusles nonpalpable secondary to edema. +4 pitting edema noted b/l. Temperature gradient warm to warm LLE, warm to hot RLE. NEURO: Gross sensation intact. DERM: Lymphedema bilaterally with lichenification -RLE=Erythema with proximal dermarcation noted. No open ulcerations noted to the R LE. No fluctuatance, no purulence, no abscess noted. -LLE=Superficial ulceration noted to posterior aspect of leg with fibrogranular base and maceration periwound, severe serous drainage/weeping noted ORTHO: Pain on palpation RLE erythema. No pain on palpation LLE. Assessment and Plan - Assessment and Plan (Free Text) Assessment: 47 year old male with RLE cellulitis, L posterior calf ulceration and b/l lymphedema Plan: Patient seen and evaluated with attending Dr. Tejeda Labs, charts, vitals reviewed: Afebrile, WBC 8.0, ESR 115, procalcitonin 10.32 Bilateral venous duplex (07/17/17): No evidence for DVT b/l however exam very limited 2/2 body habitus and edema Right foot XR (07/18/17): Negative Right tib-fib XR (07/18/17): Negative Left leg WCx taken yesterday 07/17/17 in wound care center, pending Right leg WCx (07/18/17) results- Pseudomonas Aeruginosa and Proteus Mirabilis Wounds cleansed with saline and antifungal and nystain applied to the LE Right wound cleansed and optifoam applied Continue to monitor erythema RLE Continue abx per ID Podiatry will continue to follow while in house
[2017-07-20] MEDS: Meropenem IV 1 gm in NS 50 ML IVPB SCH ×2 (14:02→21:45)
--- NOTE | 2017-07-20 21:44 | CP.PCM.PN ---
<Trever Gunderson - Last Filed: 07/21/17 06:08> Subjective - Date & Time of Evaluation Date of Evaluation: 07/20/17 Time of Evaluation: 07:25 - Subjective Subjective: 47M seen and examined at bedside. No acute events overnight. He is on day 3 of his admission for RLE cellulitis. He reports good resolution of his SOB and CP yesterday after starting saline nasal spray for his sinus irritation. He reports good performance with his PT. Less pain in his R leg with walking today than prior to admission. He has been eating and voiding normally. He can sit up in bed PEx: well appearing obese man, sitting up comfortably in bed. No acute distress Lungs: no accessory m. use. Normal work of breathing, no stridor. Lungs CTAB. No wheezing or rhonchi. Cardiac: RRR no murmurs, gallops, rubs. No precordial lift. Abdomen: obese abdomen. Normal active bowel sounds in all 4 quadrants. Soft, NT , ND. No inguinal LAD bilaterally. Lower extremities: DARCI wraps removed today. LEFT LE demonstrates skin changes consistent with chronic lymphedema and venous stasis. No erythema or callor present. RIGHT LE demonstrates skin changes with chronic lymphedema and venous stasis with erythema extending over roughly 50% of distal leg. No open ulcers, wounds, new drainage. No areas of fluctuance or induration. Some mild tenderness over medial aspect of lower leg. Erythema improved from prior border indication. A/P: 47M with PMH of DM, obesity, and chronic idiopathic LE lymphedema with venous stasis dermatitis presents with RLE pain, fever, and skin changes. 1. RIGHT LE soft tissue infection, most likely cellulitis, 2/2 chronic idiopathic lymphedema. - Wound culture from RIGHT leg returns significant for Proteus mirabilis and Pseudomonas aruginosa. Psudomonas demonstrates resistance to cefazolin and sensitivity to meropenem and genimycin. Proteus species demonstrates sensitivity to all antibiotics listed including meropenem. - Infectious disease consult: Dr. Og, recs appreciated - Podiatry consult: Dr. Singer, daquan appreciated - Continue meropenem and await recs from ID about discontinuation of linezolid to target therapy. 2. Sepsis: leukocytosis continues to trend downward from 12.2 on admission, to 9.9 and 8.0 today. Last fever was two days ago. - D/C fluid maintenance since pt is tolerating PO very well. - Continue Tylenol as needed for pain or fever 3. Chest pain + SOB: grossly resolved - Echo returns with LVEF of 55%, trace mitral and aortic regurgitation. No significant LV remodeling. - Continue PT for deconditioning and ambulation - Increase activity to [facility] 4. Coagulopathy GI prophylaxis: famotidine 20 mg PO bid DVT prophylaxis: continue LMWH Diet: HHD Objective - Vital Signs/Intake and Output Vital Signs (last 24 hours): Temp Pulse Resp BP Pulse Ox 98.1 F 88 20 104/78 95 07/20/17 17:07 07/20/17 17:07 07/20/17 17:07 07/20/17 17:07 07/20/17 06:00 - Medications Medications: Current Medications Acetaminophen (Tylenol 325mg Tab) 650 mg PO Q6H PRN PRN Reason: Fever >100.4 F Last Admin: 07/18/17 16:48 Dose: 650 mg Clotrimazole (Lotrimin 1%) 0 gm TOP BID [facility] Last Admin: 07/20/17 17:09 Dose: 1 10 Enoxaparin Sodium (Lovenox) 40 mg SC DAILY [facility] PRN Reason: Protocol Last Admin: 07/20/17 09:31 Dose: 40 mg Famotidine (Pepcid) 20 mg PO BID [facility] Last Admin: 07/20/17 17:10 Dose: 20 mg Linezolid (Zyvox 600mg/300ml D5w) 600 mg in 300 mls @ 200 mls/hr IVPB Q12 [facility] PRN Reason: Protocol Stop: 07/26/17 15:41 Last Admin: 07/20/17 09:31 Dose: 200 mls/hr Meropenem (Merrem Iv 1 Gm Premix) 50 mls @ 100 mls/hr IVPB Q8 [facility] PRN Reason: Protocol Stop: 07/25/17 08:31 Last Admin: 07/20/17 14:02 Dose: 100 mls/hr Insulin Human Regular (Humulin R Low) 0 units SC ACHS [facility] PRN Reason: Protocol Last Admin: 07/20/17 17:09 Dose: Not Given Nystatin (Nystop Topical Powder) 0 gm TOP BID [facility] Last Admin: 07/20/17 17:10 Dose: 1 10 Sodium Chloride ([place] Nasal [place]) 0 ml NS TID [facility] Last Admin: 07/20/17 17:10 Dose: 2 sprays - Labs Labs: 07/20/17 05:30 07/20/17 05:30 PT 15.4 SECONDS (9.4-12.5) H 07/19/17 06:30 INR 1.33 (0.93-1.08) H 07/19/17 06:30 APTT 30.7 Seconds (25.1-36.5) 07/19/17 06:30 <Ld Richardson - Last Filed: 07/21/17 10:14> Objective - Vital Signs/Intake and Output Vital Signs (last 24 hours): Temp Pulse Resp BP Pulse Ox 97.9 F 88 18 102/65 96 07/21/17 07:59 07/21/17 07:59 07/21/17 07:59 07/21/17 07:59 07/21/17 07:59 Intake and Output: 07/21/17 07/21/17 06:59 18:59 Intake Total 180 Balance 180 - Medications Medications: Current Medications Acetaminophen (Tylenol 325mg Tab) 650 mg PO Q6H PRN PRN Reason: Fever >100.4 F Last Admin: 07/18/17 16:48 Dose: 650 mg Clotrimazole (Lotrimin 1%) 0 gm TOP BID [facility] Last Admin: 07/20/17 17:09 Dose: 1 10 Enoxaparin Sodium (Lovenox) 40 mg SC DAILY [facility] PRN Reason: Protocol Last Admin: 07/20/17 09:31 Dose: 40 mg Famotidine (Pepcid) 20 mg PO BID [facility] Last Admin: 07/20/17 17:10 Dose: 20 mg Linezolid (Zyvox 600mg/300ml D5w) 600 mg in 300 mls @ 200 mls/hr IVPB Q12 [facility] PRN Reason: Protocol Stop: 07/26/17 15:41 Last Admin: 07/20/17 22:40 Dose: 200 mls/hr Meropenem (Merrem Iv 1 Gm Premix) 50 mls @ 100 mls/hr IVPB Q8 [facility] PRN Reason: Protocol Stop: 07/25/17 08:31 Last Admin: 07/21/17 06:29 Dose: 100 mls/hr Insulin Human Regular (Humulin R Low) 0 units SC ACHS [facility] PRN Reason: Protocol Last Admin: 07/21/17 08:40 Dose: Not Given Nystatin (Nystop Topical Powder) 0 gm TOP BID [facility] Last Admin: 07/20/17 17:10 Dose: 1 10 Sodium Chloride ([place] Nasal [place]) 0 ml NS TID [facility] Last Admin: 07/20/17 17:10 Dose: 2 sprays - Labs Labs: 07/21/17 07:00 07/20/17 05:30 PT 15.4 SECONDS (9.4-12.5) H 07/19/17 06:30 INR 1.33 (0.93-1.08) H 07/19/17 06:30 APTT 30.7 Seconds (25.1-36.5) 07/19/17 06:30 Attending/Attestation - Attestation I have personally seen and examined this patient.: Yes I have fully participated in the care of the patient.: Yes I have reviewed all pertinent clinical information, including history, physical exam and plan: Yes Notes (Text): I have seen and examined the patient at bedside. Agree with the above note with the following additions/ exceptions: Briefly this is 47 year old male with history of DM-2, Morbid obesity, chronic idiopathic lymphedema, bilateral stasis dermatitis who was admitted for evaluation of RLE cellulitis and posterior left calf wound. Wound culture from LEFT leg ulcer returns significant for Proteus mirabilis and Enterococcus faecialis. ID and podiatry consult appreciated. Continue meropenem. Vanco was stopped and zyvox was started today. Continue contact precautions. Leukocytosis improving. Blood and urine culture negative. Procal elevated. Patient also complained of chest pain and sob which has resolved now. Serial trop, EKG, CXR and CTA negative. Echo revealed EF 55%. Continue incentive spirometry. PT recommended HWS vs DIAMOND. Upon discharge patient will follow up with Dr Oliver. Dr Ld Richardson
[2017-07-21] MEDS: Meropenem IV 1 gm in NS 50 ML IVPB SCH ×3 (06:29→21:19)
[2017-07-21 08:01] LABS: BASO # 0.05 K/mm3 (0.0-2.0); BASO % 0.6 % (0.0-3.0); EOS # 0.2 (0.0-0.7); EOS % 2.4 % (1.5-5.0); GRAN # 6.71 (1.4-6.5); GRAN % 74.6 % (50.0-68.0); HEMOGLOBIN 10.1 g/dL (14.0-18.0); LYMPH # 1.2 (1.2-3.4); LYMPH % 13.4 % (22.0-35.0); MEAN CELL VOLUME 85.9 fl (80.0-105.0); MEAN CORPUSCULAR HGB CONC 32.6 g/dl (31.0-37.0); MEAN PLATELET VOLUME 8.9 fl (7.0-11.0); MONO # 0.8 (0.1-0.6); RBC 3.61 10^6/uL (3.5-6.1); RED CELL DISTRIBUTION WIDTH 14.5 % (11.5-14.5)
[2017-07-21] MEDS: Insulin Reg-LOW-Coverage SC SCH ×4 (08:40→21:27)
--- NOTE | 2017-07-21 09:16 | CP.PCM.PN ---
<Dyana Alcantara - Last Filed: 07/21/17 10:30> Subjective - Date & Time of Evaluation Date of Evaluation: 07/21/17 Time of Evaluation: 09:11 - Subjective Subjective: PGY-[address] Richardson Pt has 1 BM last night. R Leg pain persist, 2-3/10 baseline, aggravated to 8-9/ 10 by palpation or walking. no f/c or other complaint Objective - Vital Signs/Intake and Output Vital Signs (last 24 hours): Temp Pulse Resp BP Pulse Ox 97.9 F 88 18 102/65 96 07/21/17 07:59 07/21/17 07:59 07/21/17 07:59 07/21/17 07:59 07/21/17 07:59 Intake and Output: 07/21/17 07/21/17 06:59 18:59 Intake Total 180 Balance 180 - Medications Medications: Current Medications Acetaminophen (Tylenol 325mg Tab) 650 mg PO Q6H PRN PRN Reason: Fever >100.4 F Last Admin: 07/18/17 16:48 Dose: 650 mg Clotrimazole (Lotrimin 1%) 0 gm TOP BID [facility] Last Admin: 07/20/17 17:09 Dose: 1 10 Enoxaparin Sodium (Lovenox) 40 mg SC DAILY [facility] PRN Reason: Protocol Last Admin: 07/20/17 09:31 Dose: 40 mg Famotidine (Pepcid) 20 mg PO BID [facility] Last Admin: 07/20/17 17:10 Dose: 20 mg Linezolid (Zyvox 600mg/300ml D5w) 600 mg in 300 mls @ 200 mls/hr IVPB Q12 [facility] PRN Reason: Protocol Stop: 07/26/17 15:41 Last Admin: 07/20/17 22:40 Dose: 200 mls/hr Meropenem (Merrem Iv 1 Gm Premix) 50 mls @ 100 mls/hr IVPB Q8 [facility] PRN Reason: Protocol Stop: 07/25/17 08:31 Last Admin: 07/21/17 06:29 Dose: 100 mls/hr Insulin Human Regular (Humulin R Low) 0 units SC ACHS [facility] PRN Reason: Protocol Last Admin: 07/21/17 08:40 Dose: Not Given Nystatin (Nystop Topical Powder) 0 gm TOP BID [facility] Last Admin: 07/20/17 17:10 Dose: 1 10 Sodium Chloride ([place] Nasal [place]) 0 ml NS TID [facility] Last Admin: 07/20/17 17:10 Dose: 2 sprays - Labs Labs: 07/21/17 07:00 07/20/17 05:30 PT 15.4 SECONDS (9.4-12.5) H 07/19/17 06:30 INR 1.33 (0.93-1.08) H 07/19/17 06:30 APTT 30.7 Seconds (25.1-36.5) 07/19/17 06:30 - Constitutional Appears: No Acute Distress - Head Exam Head Exam: ATRAUMATIC, NORMAL INSPECTION, NORMOCEPHALIC - Eye Exam Eye Exam: EOMI, Normal appearance, PERRL. absent: Scleral icterus - ENT Exam ENT Exam: Mucous Membranes Moist - Neck Exam Additional comments: supple - Respiratory Exam Respiratory Exam: Clear to Ausculation Bilateral, NORMAL BREATHING PATTERN. absent: Rales, Rhonchi, Wheezes - Cardiovascular Exam Cardiovascular Exam: REGULAR RHYTHM, +S1, +S2. absent: Murmur - GI/Abdominal Exam GI & Abdominal Exam: Soft, Normal Bowel Sounds. absent: Tenderness - Extremities Exam Additional comments: LEFT LE demonstrates skin changes consistent with chronic lymphedema and venous stasis. No erythema or callor present. RIGHT LE demonstrates skin changes with chronic lymphedema and venous stasis with erythema extending over roughly 50% of distal leg. No open ulcers, wounds, new drainage. No areas of fluctuance or induration. Some mild tenderness over medial aspect of lower leg. Erythema improved from prior border indication. - Neurological Exam Neurological Exam: Alert, Awake, Oriented x3 - Psychiatric Exam Psychiatric exam: Normal Affect, Normal Mood - Skin Skin Exam: Dry, Warm Assessment and Plan - Assessment and Plan (Free Text) Plan: Mr Mejía 47M with PMH of DM, obesity, and chronic idiopathic LE lymphedema with venous stasis dermatitis presents with RLE pain, fever, and skin changes. 1. RIGHT LE soft tissue infection, most likely cellulitis, 2/2 chronic idiopathic lymphedema. - Wound culture from RIGHT leg returns significant for Proteus mirabilis and Pseudomonas aruginosa. Psudomonas demonstrates resistance to cefazolin and sensitivity to meropenem and genimycin. Proteus species demonstrates sensitivity to all antibiotics listed including meropenem. - Wound culture from L leg (+) proteus and enteroccoi - Infectious disease consult: Dr. Og, recs appreciated - Podiatry consult: dqauan Rizo appreciated - Continue meropenem and linezolid - tylenol prn before PT exercise for leg pain 2. Sepsis: leukocytosis continues to trend downward from 12.2 on admission - D/C fluid maintenance since pt is tolerating PO very well. - Continue Tylenol as needed for pain or fever 3. Chest pain + SOB: grossly resolved - Echo returns with LVEF of 55%, trace mitral and aortic regurgitation. No significant LV remodeling. - Continue PT for deconditioning and ambulation - Increase activity to [facility] 4. Coagulopathy likely nutritional or fatty liver etiology 5. Incentive spirometry to prevent atelectasis GI prophylaxis: famotidine 20 mg PO bid DVT prophylaxis: continue LMWH Diet: HHD <Richardson,Irfana B - Last Filed: 07/21/17 11:16> Objective - Vital Signs/Intake and Output Vital Signs (last 24 hours): Temp Pulse Resp BP Pulse Ox 97.9 F 88 18 102/65 96 07/21/17 07:59 07/21/17 07:59 07/21/17 07:59 07/21/17 07:59 07/21/17 07:59 Intake and Output: 07/21/17 07/21/17 06:59 18:59 Intake Total 180 Balance 180 - Medications Medications: Current Medications Acetaminophen (Tylenol 325mg Tab) 650 mg PO Q6H PRN PRN Reason: Fever >100.4 F Last Admin: 07/18/17 16:48 Dose: 650 mg Clotrimazole (Lotrimin 1%) 0 gm TOP BID [facility] Last Admin: 07/21/17 10:26 Dose: 1 10 Enoxaparin Sodium (Lovenox) 40 mg SC DAILY [facility] PRN Reason: Protocol Last Admin: 07/21/17 10:22 Dose: 40 mg Famotidine (Pepcid) 20 mg PO BID [facility] Last Admin: 07/21/17 10:22 Dose: 20 mg Linezolid (Zyvox 600mg/300ml D5w) 600 mg in 300 mls @ 200 mls/hr IVPB Q12 [facility] PRN Reason: Protocol Stop: 07/26/17 15:41 Last Admin: 07/21/17 10:22 Dose: 200 mls/hr Meropenem (Merrem Iv 1 Gm Premix) 50 mls @ 100 mls/hr IVPB Q8 [facility] PRN Reason: Protocol Stop: 07/25/17 08:31 Last Admin: 07/21/17 06:29 Dose: 100 mls/hr Insulin Human Regular (Humulin R Low) 0 units SC ACHS [facility] PRN Reason: Protocol Last Admin: 07/21/17 08:40 Dose: Not Given Nystatin (Nystop Topical Powder) 0 gm TOP BID [facility] Last Admin: 07/21/17 10:27 Dose: 1 10 Sodium Chloride ([place] Nasal [place]) 0 ml NS TID [facility] Last Admin: 07/20/17 17:10 Dose: 2 sprays - Labs Labs: 07/21/17 07:00 07/20/17 05:30 PT 15.4 SECONDS (9.4-12.5) H 07/19/17 06:30 INR 1.33 (0.93-1.08) H 07/19/17 06:30 APTT 30.7 Seconds (25.1-36.5) 07/19/17 06:30 Attending/Attestation - Attestation I have personally seen and examined this patient.: Yes I have fully participated in the care of the patient.: Yes I have reviewed all pertinent clinical information, including history, physical exam and plan: Yes Notes (Text): I have seen and examined the patient at bedside. Agree with the above note with the following additions/ exceptions: Briefly this is 47 year old male with history of DM-2, Morbid obesity, chronic idiopathic lymphedema, bilateral stasis dermatitis who was admitted for evaluation of RLE cellulitis and posterior left calf wound. Wound culture from LEFT leg ulcer returns significant for Proteus mirabilis and Enterococcus faecialis. ID and podiatry consult appreciated. Continue meropenem and zyvox. Continue contact precautions. Leukocytosis improving. Blood and urine culture negative. Procal elevated. Patient also complained of chest pain and sob which has resolved now. Serial trop, EKG, CXR and CTA negative. Echo revealed EF 55%. Continue incentive spirometry. PT recommended HWS vs DIAMOND. As the patient still has lot of pain, swelling and erythema of right leg, he will stay in the hospital for atleast few more days. Denies any other complaints. Upon discharge patient will follow up with Dr Oliver. Dr Ld Richardson
[2017-07-21] MEDS: Enoxaparin 40 mg Syringe SC SCH (10:22)
[2017-07-21] MEDS: Linezolid 600 mg in D5W 300 ml 600 MG/300 ML BAG IVPB SCH ×2 (10:22→21:20)
[2017-07-21] MEDS: Clotrimazole 1% Cream(30 gm) TOP SCH ×2 (10:26→17:43)
[2017-07-21] MEDS: Nystatin 100,000 Units/gm Topical Pow(15 gm) TOP SCH ×2 (10:27→17:43)
--- NOTE | 2017-07-21 13:14 | CP.PCM.PN ---
<Yoel Herrera - Last Filed: 07/21/17 13:08> Subjective - Date & Time of Evaluation Date of Evaluation: 07/21/17 Time of Evaluation: 11:00 - Subjective Subjective: Podiatry Progress Note - Dr. Singer 47 year old male patient PMHx of chronic idiopathic lymphedema, chronic back pain, herniated disks seen and evaluated at bedside for RLE cellulitis and b/l chronic nonhealing ulcerations. Patient is seen resting comfortably in chair and in NAD. Patient denies nausea, vomiting, fever, chills, chest pain or shortness of breathe. Patient has no new pedal complains. Objective - Vital Signs/Intake and Output Vital Signs (last 24 hours): Temp Pulse Resp BP Pulse Ox 97.9 F 88 18 102/65 96 07/21/17 07:59 07/21/17 07:59 07/21/17 07:59 07/21/17 07:59 07/21/17 07:59 Intake and Output: 07/21/17 07/21/17 06:59 18:59 Intake Total 180 Balance 180 - Medications Medications: Current Medications Acetaminophen (Tylenol 325mg Tab) 650 mg PO Q6H PRN PRN Reason: Fever >100.4 F Last Admin: 07/18/17 16:48 Dose: 650 mg Clotrimazole (Lotrimin 1%) 0 gm TOP BID [facility] Last Admin: 07/21/17 10:26 Dose: 1 10 Enoxaparin Sodium (Lovenox) 40 mg SC DAILY [facility] PRN Reason: Protocol Last Admin: 07/21/17 10:22 Dose: 40 mg Famotidine (Pepcid) 20 mg PO BID [facility] Last Admin: 07/21/17 10:22 Dose: 20 mg Linezolid (Zyvox 600mg/300ml D5w) 600 mg in 300 mls @ 200 mls/hr IVPB Q12 [facility] PRN Reason: Protocol Stop: 07/26/17 15:41 Last Admin: 07/21/17 10:22 Dose: 200 mls/hr Meropenem (Merrem Iv 1 Gm Premix) 50 mls @ 100 mls/hr IVPB Q8 [facility] PRN Reason: Protocol Stop: 07/25/17 08:31 Last Admin: 07/21/17 06:29 Dose: 100 mls/hr Insulin Human Regular (Humulin R Low) 0 units SC ACHS [facility] PRN Reason: Protocol Last Admin: 07/21/17 12:32 Dose: 1 units Nystatin (Nystop Topical Powder) 0 gm TOP BID [facility] Last Admin: 07/21/17 10:27 Dose: 1 10 Sodium Chloride ([place] Nasal [place]) 0 ml NS TID [facility] Last Admin: 07/21/17 11:31 Dose: Not Given - Labs Labs: 07/21/17 07:00 07/20/17 05:30 PT 15.4 SECONDS (9.4-12.5) H 07/19/17 06:30 INR 1.33 (0.93-1.08) H 07/19/17 06:30 APTT 30.7 Seconds (25.1-36.5) 07/19/17 06:30 - Constitutional Appears: Well, Non-toxic, No Acute Distress - Extremities Exam Extremities Exam: absent: Calf Tenderness Additional comments: VASC: DP pulses palpable 2/4 b/l. PT pusles nonpalpable secondary to edema. +4 pitting edema noted b/l. Temperature gradient warm to warm LLE, warm to hot RLE. NEURO: Gross sensation intact. DERM: Lymphedema bilaterally with lichenification -RLE=Erythema with proximal dermarcation noted. No open ulcerations noted to the R LE. No fluctuatance, no purulence, no abscess noted. -LLE=Superficial ulceration noted to posterior aspect of leg with fibrogranular base and maceration periwound, severe serous drainage/weeping noted ORTHO: Pain on palpation RLE erythema. No pain on palpation LLE. - Neurological Exam Neurological Exam: Alert, Awake, Oriented x3 - Psychiatric Exam Psychiatric exam: Normal Affect, Normal Mood Assessment and Plan - Assessment and Plan (Free Text) Assessment: 47 year old male with RLE cellulitis, L posterior calf ulceration and b/l lymphedema Plan: Patient seen and evaluated with attending Dr. Tejeda Labs, charts, vitals reviewed: Afebrile, WBC 9.0, ESR 115, procalcitonin 10.32 Bilateral venous duplex (07/17/17): No evidence for DVT b/l however exam very limited 2/2 body habitus and edema Right foot XR (07/18/17): Negative Right tib-fib XR (07/18/17): Negative Left leg WCx taken yesterday 07/17/17 in wound care center, pending Right leg WCx (07/18/17) results- Pseudomonas Aeruginosa and Proteus Mirabilis Wounds cleansed with saline and antifungal and nystain applied to the LE Right wound cleansed and maxosorb with optifoam applied Continue to monitor erythema RLE Continue abx per ID Podiatry will continue to follow while in house <Charlie Singer - Last Filed: 07/21/17 16:51> Objective - Vital Signs/Intake and Output Vital Signs (last 24 hours): Temp Pulse Resp BP Pulse Ox 97.8 F 89 18 136/85 99 07/21/17 16:08 07/21/17 16:08 07/21/17 16:08 07/21/17 16:08 07/21/17 16:08 Intake and Output: 07/21/17 07/21/17 06:59 18:59 Intake Total 180 640 Balance 180 640 - Medications Medications: Current Medications Acetaminophen (Tylenol 325mg Tab) 650 mg PO Q6H PRN PRN Reason: Fever >100.4 F Last Admin: 07/18/17 16:48 Dose: 650 mg Clotrimazole (Lotrimin 1%) 0 gm TOP BID [facility] Last Admin: 07/21/17 10:26 Dose: 1 10 Enoxaparin Sodium (Lovenox) 40 mg SC DAILY [facility] PRN Reason: Protocol Last Admin: 07/21/17 10:22 Dose: 40 mg Famotidine (Pepcid) 20 mg PO BID [facility] Last Admin: 07/21/17 10:22 Dose: 20 mg Linezolid (Zyvox 600mg/300ml D5w) 600 mg in 300 mls @ 200 mls/hr IVPB Q12 [facility] PRN Reason: Protocol Stop: 07/26/17 15:41 Last Admin: 07/21/17 10:22 Dose: 200 mls/hr Meropenem (Merrem Iv 1 Gm Premix) 50 mls @ 100 mls/hr IVPB Q8 [facility] PRN Reason: Protocol Stop: 07/25/17 08:31 Last Admin: 07/21/17 13:40 Dose: 100 mls/hr Insulin Human Regular (Humulin R Low) 0 units SC ACHS [facility] PRN Reason: Protocol Last Admin: 07/21/17 12:32 Dose: 1 units Nystatin (Nystop Topical Powder) 0 gm TOP BID [facility] Last Admin: 07/21/17 10:27 Dose: 1 10 Sodium Chloride ([place] Nasal [place]) 0 ml NS TID [facility] Last Admin: 07/21/17 13:41 Dose: Not Given - Labs Labs: 07/21/17 07:00 07/20/17 05:30 PT 15.4 SECONDS (9.4-12.5) H 07/19/17 06:30 INR 1.33 (0.93-1.08) H 07/19/17 06:30 APTT 30.7 Seconds (25.1-36.5) 07/19/17 06:30 Attending/Attestation - Attestation I have personally seen and examined this patient.: Yes I have fully participated in the care of the patient.: Yes I have reviewed all pertinent clinical information, including history, physical exam and plan: Yes
[2017-07-22] MEDS: Meropenem IV 1 gm in NS 50 ML IVPB SCH ×3 (05:53→22:15)
--- NOTE | 2017-07-22 07:59 | CP.PCM.PN ---
<Trever Gunderson - Last Filed: 07/22/17 14:04> Subjective - Date & Time of Evaluation Date of Evaluation: 07/22/17 Time of Evaluation: 06:00 - Subjective Subjective: Patient seen and examined at bedside in no acute distress. Has no complaints at the moment. Denies shortness of breath and chest pain; stating both have resolved. States he still has some tenderness at his right lower extremity which is notable when he ambulates; admits pain is slowly resolving however. Objective - Vital Signs/Intake and Output Vital Signs (last 24 hours): Temp Pulse Resp BP Pulse Ox 98.8 F 90 20 116/63 95 07/22/17 00:01 07/22/17 00:01 07/22/17 00:01 07/22/17 00:01 07/22/17 00:01 Intake and Output: 07/22/17 07/22/17 06:59 18:59 Intake Total 900 Balance 900 - Medications Medications: Current Medications Acetaminophen (Tylenol 325mg Tab) 650 mg PO Q6H PRN PRN Reason: Fever >100.4 F Last Admin: 07/18/17 16:48 Dose: 650 mg Clotrimazole (Lotrimin 1%) 0 gm TOP BID [facility] Last Admin: 07/21/17 17:43 Dose: 1 10 Enoxaparin Sodium (Lovenox) 40 mg SC DAILY [facility] PRN Reason: Protocol Last Admin: 07/21/17 10:22 Dose: 40 mg Famotidine (Pepcid) 20 mg PO BID [facility] Last Admin: 07/21/17 17:38 Dose: 20 mg Linezolid (Zyvox 600mg/300ml D5w) 600 mg in 300 mls @ 200 mls/hr IVPB Q12 [facility] PRN Reason: Protocol Stop: 07/26/17 15:41 Last Admin: 07/21/17 21:20 Dose: 200 mls/hr Meropenem (Merrem Iv 1 Gm Premix) 50 mls @ 100 mls/hr IVPB Q8 [facility] PRN Reason: Protocol Stop: 07/25/17 08:31 Last Admin: 07/22/17 05:53 Dose: 100 mls/hr Insulin Human Regular (Humulin R Low) 0 units SC ACHS [facility] PRN Reason: Protocol Last Admin: 07/21/17 21:27 Dose: Not Given Nystatin (Nystop Topical Powder) 0 gm TOP BID [facility] Last Admin: 07/21/17 17:43 Dose: 1 applic Sodium Chloride ([place] Nasal [place]) 0 ml NS TID [facility] Last Admin: 07/21/17 17:39 Dose: Not Given - Labs Labs: 07/21/17 07:00 07/20/17 05:30 PT 15.4 SECONDS (9.4-12.5) H 07/19/17 06:30 INR 1.33 (0.93-1.08) H 07/19/17 06:30 APTT 30.7 Seconds (25.1-36.5) 07/19/17 06:30 - Constitutional Appears: Non-toxic, No Acute Distress - Head Exam Head Exam: ATRAUMATIC, NORMAL INSPECTION, NORMOCEPHALIC - Eye Exam Eye Exam: EOMI, Normal appearance - ENT Exam ENT Exam: Mucous Membranes Moist - Neck Exam Neck Exam: Normal Inspection - Respiratory Exam Respiratory Exam: Clear to Ausculation Bilateral, NORMAL BREATHING PATTERN. absent: Rhonchi, Wheezes - Cardiovascular Exam Cardiovascular Exam: REGULAR RHYTHM, +S1, +S2 - GI/Abdominal Exam GI & Abdominal Exam: Soft, Normal Bowel Sounds - Extremities Exam Additional comments: right lower extremity-erythema - Back Exam Back Exam: NORMAL INSPECTION - Neurological Exam Neurological Exam: Alert, Awake, Oriented x3 - Psychiatric Exam Psychiatric exam: Normal Affect, Normal Mood - Skin Skin Exam: Erythema (right lower extremity), Warm Assessment and Plan - Assessment and Plan (Free Text) Assessment: Mr Mejía 47M with PMH of DM, obesity, and chronic idiopathic LE lymphedema with venous stasis dermatitis presents with RLE pain, fever, and skin changes. RIGHT LE soft tissue infection, most likely cellulitis, 2/2 chronic idiopathic lymphedema. - Wound culture from RIGHT leg returns significant for Proteus mirabilis and Pseudomonas aruginosa. Psudomonas demonstrates resistance to cefazolin and sensitivity to meropenem and genimycin. Proteus species demonstrates sensitivity to all antibiotics listed including meropenem. - Wound culture from L leg (+) proteus and enteroccoi - Infectious disease consult: daquan Torres appreciated - Podiatry consult: daquan Rizo appreciated - Continue meropenem and linezolid - tylenol prn before PT exercise for leg pain Sepsis: leukocytosis continues to trend downward from 12.2 on admission now 9.8 - Continue Tylenol as needed for pain or fever Chest pain + SOB: grossly resolved - Echo returns with LVEF of 55%, trace mitral and aortic regurgitation. No significant LV remodeling. - Continue PT for deconditioning and ambulation - Increase activity to OOBTC; patient states he is getting out of bed more often and performing exercises taught by physical therapy - Continue Incentive spirometry to prevent atelectasis GI prophylaxis: famotidine 20 mg PO bid DVT prophylaxis: continue LMWH Diet: HHD <Richardson,Irfana B - Last Filed: 07/22/17 16:29> Objective - Vital Signs/Intake and Output Vital Signs (last 24 hours): Temp Pulse Resp BP Pulse Ox 98.6 F 71 18 107/67 97 07/22/17 07:30 07/22/17 07:30 07/22/17 07:30 07/22/17 07:30 07/22/17 07:30 Intake and Output: 07/22/17 07/22/17 06:59 18:59 Intake Total 900 640 Balance 900 640 - Medications Medications: Current Medications Acetaminophen (Tylenol 325mg Tab) 650 mg PO Q6H PRN PRN Reason: Fever >100.4 F Last Admin: 07/22/17 15:11 Dose: 650 mg Clotrimazole (Lotrimin 1%) 0 gm TOP BID [facility] Last Admin: 07/22/17 10:07 Dose: 1 10 Enoxaparin Sodium (Lovenox) 40 mg SC DAILY [facility] PRN Reason: Protocol Last Admin: 07/22/17 10:04 Dose: 40 mg Famotidine (Pepcid) 20 mg PO BID [facility] Last Admin: 07/22/17 10:03 Dose: 20 mg Linezolid (Zyvox 600mg/300ml D5w) 600 mg in 300 mls @ 200 mls/hr IVPB Q12 [facility] PRN Reason: Protocol Stop: 07/26/17 15:41 Last Admin: 07/22/17 10:04 Dose: 200 mls/hr Meropenem (Merrem Iv 1 Gm Premix) 50 mls @ 100 mls/hr IVPB Q8 [facility] PRN Reason: Protocol Stop: 07/25/17 08:31 Last Admin: 07/22/17 13:38 Dose: 100 mls/hr Insulin Human Regular (Humulin R Low) 0 units SC ACHS [facility] PRN Reason: Protocol Last Admin: 07/22/17 12:38 Dose: Not Given Nystatin (Nystop Topical Powder) 0 gm TOP BID [facility] Last Admin: 07/22/17 10:07 Dose: 1 applic Sodium Chloride ([place]da Nasal [place]) 0 ml NS TID [facility] Last Admin: 07/22/17 13:36 Dose: 1 sprays - Labs Labs: 07/22/17 08:26 07/22/17 08:30 PT 15.4 SECONDS (9.4-12.5) H 07/19/17 06:30 INR 1.33 (0.93-1.08) H 07/19/17 06:30 APTT 30.7 Seconds (25.1-36.5) 07/19/17 06:30 Attending/Attestation - Attestation I have personally seen and examined this patient.: Yes I have fully participated in the care of the patient.: Yes I have reviewed all pertinent clinical information, including history, physical exam and plan: Yes Notes (Text): I have seen and examined the patient at bedside. Agree with the above note with the following additions/ exceptions: Briefly this is 47 year old male with history of DM-2, Morbid obesity, chronic idiopathic lymphedema, bilateral stasis dermatitis who was admitted for evaluation of RLE cellulitis and posterior left calf wound. Wound culture from LEFT leg ulcer returns significant for Proteus mirabilis and Enterococcus faecialis. ID and podiatry consult appreciated. Continue meropenem and zyvox. Patient needs to continue IV antibiotics for now. Continue contact precautions. Leukocytosis improving. Blood and urine culture negative. Procal elevated. Patient also complained of chest pain and sob upon admission which has resolved now. Serial trop, EKG, CXR and CTA negative. Echo revealed EF 55%. Continue incentive spirometry. PT recommended HWS vs DIAMOND. As the patient still has lot of pain, swelling and erythema of right leg, he will stay in the hospital for atleast few more days. Denies any other complaints. Upon discharge patient will follow up with Dr Oliver. Dr Ld Richardson
[2017-07-22 08:45] LABS: BASO # 0.06 K/mm3 (0.0-2.0); BASO % 0.6 % (0.0-3.0); EOS # 0.2 (0.0-0.7); EOS % 2.1 % (1.5-5.0); GRAN # 7.42 (1.4-6.5); GRAN % 76.1 % (50.0-68.0); HEMOGLOBIN 10.3 g/dL (14.0-18.0); LYMPH # 1.4 (1.2-3.4); LYMPH % 13.9 % (22.0-35.0); MEAN CELL VOLUME 86.3 fl (80.0-105.0); MEAN CORPUSCULAR HEMOGLOBIN 28.2 pg (25.0-35.0); MEAN CORPUSCULAR HGB CONC 32.7 g/dl (31.0-37.0); MEAN PLATELET VOLUME 8.9 fl (7.0-11.0); MONO # 0.7 (0.1-0.6); MONO % 7.3 % (1.0-6.0); RBC 3.65 10^6/uL (3.5-6.1); RED CELL DISTRIBUTION WIDTH 14.4 % (11.5-14.5); WHITE BLOOD COUNT 9.8 10^3/ul (4.5-11.0)
[2017-07-22 09:02] LABS: ALB/GLOB RATIO 0.8 (1.1-1.8); ALBUMIN 3.1 g/dL (3.0-4.8); ALT/SGPT 50 U/L (7-56); AST/SGOT 38 U/L (17-59); BLOOD UREA NITROGEN 9 mg/dL (7-21); CALCIUM 8.4 mg/dL (8.4-10.5); GFR AFRICAN-AMERICAN > 60; GFR NON-AFRICAN AMERICAN > 60
[2017-07-22] MEDS: Insulin Reg-LOW-Coverage SC SCH ×3 (09:54→17:34)
[2017-07-22] MEDS: Enoxaparin 40 mg Syringe SC SCH (10:04)
[2017-07-22] MEDS: Linezolid 600 mg in D5W 300 ml 600 MG/300 ML BAG IVPB SCH (10:04)
[2017-07-22] MEDS: Clotrimazole 1% Cream(30 gm) TOP SCH ×2 (10:07→17:35)
[2017-07-22] MEDS: Nystatin 100,000 Units/gm Topical Pow(15 gm) TOP SCH ×2 (10:07→17:35)
--- NOTE | 2017-07-22 11:37 | CP.PCM.PN ---
<Marilin Manrique - Last Filed: 07/22/17 11:34> Subjective - Date & Time of Evaluation Date of Evaluation: 07/22/17 Time of Evaluation: 08:10 - Subjective Subjective: Podiatry Progress Note - Dr. Singer 47 year old male patient PMHx of chronic idiopathic lymphedema, chronic back pain, herniated disks seen and evaluated at bedside for RLE cellulitis and b/l chronic nonhealing ulcerations. Patient is seen resting comfortably in chair and in NAD. Patient denies nausea, vomiting, fever, chills, chest pain or shortness of breathe. Patient has no new pedal complains. Objective - Vital Signs/Intake and Output Vital Signs (last 24 hours): Temp Pulse Resp BP Pulse Ox 98.6 F 71 18 107/67 97 07/22/17 07:30 07/22/17 07:30 07/22/17 07:30 07/22/17 07:30 07/22/17 07:30 Intake and Output: 07/22/17 07/22/17 06:59 18:59 Intake Total 900 Balance 900 - Medications Medications: Current Medications Acetaminophen (Tylenol 325mg Tab) 650 mg PO Q6H PRN PRN Reason: Fever >100.4 F Last Admin: 07/18/17 16:48 Dose: 650 mg Clotrimazole (Lotrimin 1%) 0 gm TOP BID [facility] Last Admin: 07/22/17 10:07 Dose: 1 10 Enoxaparin Sodium (Lovenox) 40 mg SC DAILY [facility] PRN Reason: Protocol Last Admin: 07/22/17 10:04 Dose: 40 mg Famotidine (Pepcid) 20 mg PO BID [facility] Last Admin: 07/22/17 10:03 Dose: 20 mg Linezolid (Zyvox 600mg/300ml D5w) 600 mg in 300 mls @ 200 mls/hr IVPB Q12 [facility] PRN Reason: Protocol Stop: 07/26/17 15:41 Last Admin: 07/22/17 10:04 Dose: 200 mls/hr Meropenem (Merrem Iv 1 Gm Premix) 50 mls @ 100 mls/hr IVPB Q8 [facility] PRN Reason: Protocol Stop: 07/25/17 08:31 Last Admin: 07/22/17 05:53 Dose: 100 mls/hr Insulin Human Regular (Humulin R Low) 0 units SC ACHS [facility] PRN Reason: Protocol Last Admin: 07/22/17 09:54 Dose: Not Given Nystatin (Nystop Topical Powder) 0 gm TOP BID [facility] Last Admin: 07/22/17 10:07 Dose: 1 applic Sodium Chloride ([place] Nasal [place]) 0 ml NS TID [facility] Last Admin: 07/22/17 10:08 Dose: 1 sprays - Labs Labs: 07/22/17 08:26 07/22/17 08:30 PT 15.4 SECONDS (9.4-12.5) H 07/19/17 06:30 INR 1.33 (0.93-1.08) H 07/19/17 06:30 APTT 30.7 Seconds (25.1-36.5) 07/19/17 06:30 - Constitutional Appears: Well, Non-toxic, No Acute Distress - Extremities Exam Additional comments: VASC: DP pulses palpable 2/4 b/l. PT pusles nonpalpable secondary to edema. +4 pitting edema noted b/l. Temperature gradient warm to warm LLE, warm to hot RLE. NEURO: Gross sensation intact. DERM: Lymphedema bilaterally with lichenification -RLE=Erythema with proximal dermarcation noted. No open ulcerations noted to the R LE. No fluctuatance, no purulence, no abscess noted. -LLE=Superficial ulceration noted to posterior aspect of leg with fibrogranular base and maceration periwound, severe serous drainage/weeping noted ORTHO: Pain on palpation RLE erythema. No pain on palpation LLE. - Neurological Exam Neurological Exam: Alert, Awake, Oriented x3 - Psychiatric Exam Psychiatric exam: Normal Affect, Normal Mood Assessment and Plan - Assessment and Plan (Free Text) Assessment: 47 year old male with RLE cellulitis, L posterior calf ulceration and b/l lymphedema Plan: Patient seen and evaluated. Discussed with attending, Dr. Singer. Labs, charts, vitals reviewed: Afebrile, absent leukocytosis. Bilateral venous duplex (07/17/17): No evidence for DVT b/l however exam very limited 2/2 body habitus and edema Right foot XR (07/18/17): Negative Right tib-fib XR (07/18/17): Negative Left leg WCx taken yesterday 2/26/18 in wound care center, pending Right leg WCx (07/18/17) results- Pseudomonas Aeruginosa and Proteus Mirabilis Wounds cleansed with saline and antifungal and nystain applied to the LE Right wound cleansed and maxosorb with optifoam applied Continue to monitor erythema RLE Continue abx per ID Podiatry will continue to follow while in house <Charlie Singer - Last Filed: 07/22/17 17:49> Objective - Vital Signs/Intake and Output Vital Signs (last 24 hours): Temp Pulse Resp BP Pulse Ox 98.6 F 71 18 107/67 97 07/22/17 07:30 07/22/17 07:30 07/22/17 07:30 07/22/17 07:30 07/22/17 07:30 Intake and Output: 07/22/17 07/22/17 06:59 18:59 Intake Total 900 640 Balance 900 640 - Medications Medications: Current Medications Acetaminophen (Tylenol 325mg Tab) 650 mg PO Q6H PRN PRN Reason: Fever >100.4 F Last Admin: 07/22/17 15:11 Dose: 650 mg Clotrimazole (Lotrimin 1%) 0 gm TOP BID [facility] Last Admin: 07/22/17 17:35 Dose: 1 10 Enoxaparin Sodium (Lovenox) 40 mg SC DAILY [facility] PRN Reason: Protocol Last Admin: 07/22/17 10:04 Dose: 40 mg Famotidine (Pepcid) 20 mg PO BID [facility] Last Admin: 07/22/17 17:38 Dose: 20 mg Linezolid (Zyvox 600mg/300ml D5w) 600 mg in 300 mls @ 200 mls/hr IVPB Q12 [facility] PRN Reason: Protocol Stop: 07/26/17 15:41 Last Admin: 07/22/17 10:04 Dose: 200 mls/hr Meropenem (Merrem Iv 1 Gm Premix) 50 mls @ 100 mls/hr IVPB Q8 [facility] PRN Reason: Protocol Stop: 07/25/17 08:31 Last Admin: 07/22/17 13:38 Dose: 100 mls/hr Insulin Human Regular (Humulin R Low) 0 units SC ACHS [facility] PRN Reason: Protocol Last Admin: 07/22/17 17:34 Dose: Not Given Nystatin (Nystop Topical Powder) 0 gm TOP BID [facility] Last Admin: 07/22/17 17:35 Dose: 1 applic Sodium Chloride ([place] Nasal [place]) 0 ml NS TID [facility] Last Admin: 07/22/17 13:36 Dose: 1 sprays - Labs Labs: 07/22/17 08:26 07/22/17 08:30 PT 15.4 SECONDS (9.4-12.5) H 07/19/17 06:30 INR 1.33 (0.93-1.08) H 07/19/17 06:30 APTT 30.7 Seconds (25.1-36.5) 07/19/17 06:30 Attending/Attestation - Attestation I have personally seen and examined this patient.: Yes I have fully participated in the care of the patient.: Yes I have reviewed all pertinent clinical information, including history, physical exam and plan: Yes
--- NOTE | 2017-07-22 15:41 | CP.PCM.PN ---
Subjective - Date & Time of Evaluation Date of Evaluation: 07/22/17 Time of Evaluation: 12:35 - Subjective Subjective: Comfortable, no fevers, not in distress, less pain in the legs. Objective - Vital Signs/Intake and Output Vital Signs (last 24 hours): Temp Pulse Resp BP Pulse Ox 98.6 F 89 20 141/77 95 07/20/17 06:00 07/20/17 10:00 07/20/17 06:00 07/20/17 06:00 07/20/17 06:00 Intake and Output: 07/20/17 07/20/17 06:59 18:59 Intake Total 1900 Balance 1900 - Medications Medications: Current Medications Acetaminophen (Tylenol 325mg Tab) 650 mg PO Q6H PRN PRN Reason: Fever >100.4 F Last Admin: 07/18/17 16:48 Dose: 650 mg Clotrimazole (Lotrimin 1%) 0 gm TOP BID [facility] Last Admin: 07/20/17 09:34 Dose: 1 10 Enoxaparin Sodium (Lovenox) 40 mg SC DAILY [facility] PRN Reason: Protocol Last Admin: 07/20/17 09:31 Dose: 40 mg Famotidine (Pepcid) 20 mg PO BID [facility] Last Admin: 07/20/17 09:30 Dose: 20 mg Sodium Chloride (Sodium Chloride 0.9%) 1,000 mls @ 125 mls/hr IV .Q8H [facility] Last Admin: 07/20/17 09:33 Dose: 125 mls/hr Linezolid (Zyvox 600mg/300ml D5w) 600 mg in 300 mls @ 200 mls/hr IVPB Q12 [facility] PRN Reason: Protocol Stop: 07/26/17 15:41 Last Admin: 07/20/17 09:31 Dose: 200 mls/hr Meropenem (Merrem Iv 1 Gm Premix) 50 mls @ 100 mls/hr IVPB Q8 [facility] PRN Reason: Protocol Stop: 07/25/17 08:31 Insulin Human Regular (Humulin R Low) 0 units SC ACHS [facility] PRN Reason: Protocol Last Admin: 07/20/17 07:58 Dose: Not Given Nystatin (Nystop Topical Powder) 0 gm TOP BID [facility] Last Admin: 07/20/17 09:34 Dose: 1 10 Sodium Chloride ([place] Nasal [place]) 0 ml NS TID [facility] Last Admin: 07/20/17 09:34 Dose: 1 sprays - Labs Labs: 07/20/17 05:30 07/20/17 05:30 PT 15.4 SECONDS (9.4-12.5) H 07/19/17 06:30 INR 1.33 (0.93-1.08) H 07/19/17 06:30 APTT 30.7 Seconds (25.1-36.5) 07/19/17 06:30 - Constitutional Appears: Non-toxic, Chronically Ill - Head Exam Head Exam: NORMAL INSPECTION - Neck Exam Neck Exam: absent: Meningismus - Respiratory Exam Respiratory Exam: Decreased Breath Sounds - Cardiovascular Exam Cardiovascular Exam: +S1, +S2 - GI/Abdominal Exam GI & Abdominal Exam: Soft. absent: Tenderness - Extremities Exam Additional comments: slowly decreasing erythema on the right leg Assessment and Plan - Assessment and Plan (Free Text) Plan: Assessment sepsis due to bilateral lower extremity skin and skin structure infection in a patient with chronic lymphedema and chronic venous stasis ulcers - has long standing history, and he previously grew multidrug-resistant Klebsiella and Proteus history of lower extremity cellulitis in the past obesity with BMI 51 history of urinary bladder infections in the past Plan continue Zyvox day 4 and continue Merrem day 5; wound cx showing Proteus and E. faecalis, follow up blood cx - would recommend to continue IV antibiotics for now and would recommend total 10-14 days of antibiotics Follow up further Podiatry recommendations and evaluation Will continue to monitor clinically
[2017-07-23] MEDS: Insulin Reg-LOW-Coverage SC SCH ×4 (00:09→16:40)
[2017-07-23] MEDS: Linezolid 600 mg in D5W 300 ml 600 MG/300 ML BAG IVPB SCH ×3 (00:11→23:14)
[2017-07-23] MEDS: Meropenem IV 1 gm in NS 50 ML IVPB SCH ×3 (06:24→21:34)
--- NOTE | 2017-07-23 07:24 | CP.PCM.PN ---
<Trever Gunderson - Last Filed: 07/23/17 12:11> Subjective - Date & Time of Evaluation Date of Evaluation: 07/23/17 Time of Evaluation: 07:10 - Subjective Subjective: Patient seen and examined at bedside in no acute distress. Patient states his coughing and shortness of breath have both improved and is no longer having chest pain. Also says he feels the pain in the right lower extremity diminishing , as well as warmth and rubor resolving. Denies abdominal pain, chest pain, shortness of breath, nausea, vomiting, diarrhea. Overnight nurse endorses drainage from left lower extremity. Objective - Vital Signs/Intake and Output Vital Signs (last 24 hours): Temp Pulse Resp BP Pulse Ox 98.3 F 96 H 20 110/82 100 07/23/17 00:01 07/23/17 00:01 07/23/17 00:01 07/23/17 00:01 07/23/17 00:01 Intake and Output: 07/23/17 07/23/17 06:59 18:59 Intake Total 360 200 Balance 360 200 - Medications Medications: Current Medications Acetaminophen (Tylenol 325mg Tab) 650 mg PO Q6H PRN PRN Reason: Fever >100.4 F Last Admin: 07/22/17 15:11 Dose: 650 mg Clotrimazole (Lotrimin 1%) 0 gm TOP BID [facility] Last Admin: 07/22/17 17:35 Dose: 1 10 Enoxaparin Sodium (Lovenox) 40 mg SC DAILY [facility] PRN Reason: Protocol Last Admin: 07/22/17 10:04 Dose: 40 mg Famotidine (Pepcid) 20 mg PO BID [facility] Last Admin: 07/22/17 17:38 Dose: 20 mg Linezolid (Zyvox 600mg/300ml D5w) 600 mg in 300 mls @ 200 mls/hr IVPB Q12 [facility] PRN Reason: Protocol Stop: 07/26/17 15:41 Last Admin: 07/23/17 00:11 Dose: 200 mls/hr Meropenem (Merrem Iv 1 Gm Premix) 50 mls @ 100 mls/hr IVPB Q8 [facility] PRN Reason: Protocol Stop: 07/25/17 08:31 Last Admin: 07/23/17 06:24 Dose: 100 mls/hr Insulin Human Regular (Humulin R Low) 0 units SC ACHS [facility] PRN Reason: Protocol Last Admin: 07/23/17 00:09 Dose: Not Given Nystatin (Nystop Topical Powder) 0 gm TOP BID [facility] Last Admin: 07/22/17 17:35 Dose: 1 applic Sodium Chloride (Ceiba Nasal [place]) 0 ml NS TID [facility] Last Admin: 07/22/17 18:41 Dose: 1 sprays - Labs Labs: 07/22/17 08:26 07/22/17 08:30 PT 15.4 SECONDS (9.4-12.5) H 07/19/17 06:30 INR 1.33 (0.93-1.08) H 07/19/17 06:30 APTT 30.7 Seconds (25.1-36.5) 07/19/17 06:30 - Constitutional Appears: Non-toxic, No Acute Distress - Head Exam Head Exam: ATRAUMATIC, NORMAL INSPECTION, NORMOCEPHALIC - Eye Exam Eye Exam: EOMI, Normal appearance - ENT Exam ENT Exam: Mucous Membranes Moist, Normal Exam - Neck Exam Neck Exam: Normal Inspection - Respiratory Exam Respiratory Exam: Clear to Ausculation Bilateral, NORMAL BREATHING PATTERN. absent: Rales, Rhonchi, Wheezes, Respiratory Distress - Cardiovascular Exam Cardiovascular Exam: REGULAR RHYTHM, +S1, +S2 - GI/Abdominal Exam GI & Abdominal Exam: Soft, Normal Bowel Sounds - Extremities Exam Additional comments: right lower extremity erythema-resolving, keratotic regions present on bilateral lower extremities - Back Exam Back Exam: NORMAL INSPECTION - Neurological Exam Neurological Exam: Alert, Awake, Oriented x3 - Skin Skin Exam: Intact, Normal Color, Warm Assessment and Plan - Assessment and Plan (Free Text) Assessment: Mr Mejía 47M with PMH of DM, obesity, and chronic idiopathic LE lymphedema with venous stasis dermatitis presents with RLE pain, fever, and skin changes. RIGHT LE soft tissue infection, most likely cellulitis, 2/2 chronic idiopathic lymphedema. - Wound culture from RIGHT leg returns significant for Proteus mirabilis and Pseudomonas aruginosa. Psudomonas demonstrates resistance to cefazolin and sensitivity to meropenem and genimycin. Proteus species demonstrates sensitivity to all antibiotics listed including meropenem. - Wound culture from L leg (+) proteus and enteroccoi; will continue current abx regimen - Infectious disease consulted: daquan Torres appreciated - Podiatry consulted: daquan Rizo appreciated - Continue meropenem and linezolid - tylenol prn before PT exercise for leg pain Chest pain + SOB: grossly resolved - Echo returns with LVEF of 55%, trace mitral and aortic regurgitation. No significant LV remodeling. - Continue PT for deconditioning and ambulation - Increase activity to OOBTC; patient states he continues to get out of bed more often and continues to perform exercises taught by physical therapy - Continue Incentive spirometry to prevent atelectasis GI prophylaxis: famotidine 20 mg PO bid DVT prophylaxis: continue LMWH Diet: HHD <Richardson,Irfana B - Last Filed: 07/23/17 12:21> Objective - Vital Signs/Intake and Output Vital Signs (last 24 hours): Temp Pulse Resp BP Pulse Ox 97.9 F 71 20 112/82 95 07/23/17 07:30 07/23/17 07:30 07/23/17 07:30 07/23/17 07:30 07/23/17 07:30 Intake and Output: 07/23/17 07/23/17 06:59 18:59 Intake Total 360 200 Balance 360 200 - Medications Medications: Current Medications Acetaminophen (Tylenol 325mg Tab) 650 mg PO Q6H PRN PRN Reason: Fever >100.4 F Last Admin: 07/23/17 09:39 Dose: 650 mg Clotrimazole (Lotrimin 1%) 0 gm TOP BID [facility] Last Admin: 07/23/17 09:34 Dose: 1 10 Enoxaparin Sodium (Lovenox) 40 mg SC DAILY [facility] PRN Reason: Protocol Last Admin: 07/23/17 09:38 Dose: 40 mg Famotidine (Pepcid) 20 mg PO BID [facility] Last Admin: 07/23/17 09:41 Dose: 20 mg Linezolid (Zyvox 600mg/300ml D5w) 600 mg in 300 mls @ 200 mls/hr IVPB Q12 [facility] PRN Reason: Protocol Stop: 07/26/17 15:41 Last Admin: 07/23/17 09:43 Dose: 200 mls/hr Meropenem (Merrem Iv 1 Gm Premix) 50 mls @ 100 mls/hr IVPB Q8 [facility] PRN Reason: Protocol Stop: 07/25/17 08:31 Last Admin: 07/23/17 06:24 Dose: 100 mls/hr Insulin Human Regular (Humulin R Low) 0 units SC ACHS [facility] PRN Reason: Protocol Last Admin: 07/23/17 09:34 Dose: Not Given Nystatin (Nystop Topical Powder) 0 gm TOP BID [facility] Last Admin: 07/23/17 09:35 Dose: 1 applic Sodium Chloride (Ceiba Nasal [place]) 0 ml NS TID [facility] Last Admin: 07/23/17 09:35 Dose: 1 sprays - Labs Labs: 07/23/17 08:24 07/23/17 08:42 PT 15.4 SECONDS (9.4-12.5) H 07/19/17 06:30 INR 1.33 (0.93-1.08) H 07/19/17 06:30 APTT 30.7 Seconds (25.1-36.5) 07/19/17 06:30 Attending/Attestation - Attestation I have personally seen and examined this patient.: Yes I have fully participated in the care of the patient.: Yes I have reviewed all pertinent clinical information, including history, physical exam and plan: Yes Notes (Text): I have seen and examined the patient at bedside. Agree with the above note with the following additions/ exceptions: Briefly this is 47 year old male with history of DM-2, Morbid obesity, chronic idiopathic lymphedema, bilateral stasis dermatitis who was admitted for evaluation of RLE cellulitis and posterior left calf wound. Wound culture from LEFT leg ulcer returns significant for Proteus mirabilis and Enterococcus faecialis. ID and podiatry consult appreciated. Continue meropenem and zyvox. Patient needs to continue IV antibiotics for now. Continue contact precautions. Leukocytosis improving. Blood and urine culture negative. Procal elevated. Patient also complained of chest pain and sob upon admission which has resolved now. Serial trop, EKG, CXR and CTA negative. Echo revealed EF 55%. Continue incentive spirometry. PT recommended HWS vs DIAMOND. Possible dc tomorrow. Denies any other complaints. Upon discharge patient will follow up with Dr Oliver. Dr Ld Richardson
[2017-07-23 08:33] LABS: BASO # 0.03 K/mm3 (0.0-2.0); BASO % 0.4 % (0.0-3.0); EOS # 0.2 (0.0-0.7); EOS % 1.9 % (1.5-5.0); GRAN # 5.77 (1.4-6.5); GRAN % 73.3 % (50.0-68.0); HEMOGLOBIN 10.2 g/dL (14.0-18.0); LYMPH # 1.3 (1.2-3.4); LYMPH % 16.5 % (22.0-35.0); MEAN CELL VOLUME 86.9 fl (80.0-105.0); MEAN CORPUSCULAR HEMOGLOBIN 27.9 pg (25.0-35.0); MEAN CORPUSCULAR HGB CONC 32.1 g/dl (31.0-37.0); MONO # 0.6 (0.1-0.6); MONO % 7.9 % (1.0-6.0); RBC 3.66 10^6/uL (3.5-6.1); RED CELL DISTRIBUTION WIDTH 14.6 % (11.5-14.5); WHITE BLOOD COUNT 7.9 10^3/ul (4.5-11.0)
[2017-07-23 08:57] LABS: ALB/GLOB RATIO 0.8 (1.1-1.8); ALBUMIN 3.1 g/dL (3.0-4.8); ALT/SGPT 51 U/L (7-56); AST/SGOT 39 U/L (17-59); BLOOD UREA NITROGEN 10 mg/dL (7-21); CALCIUM 8.7 mg/dL (8.4-10.5); GFR AFRICAN-AMERICAN > 60; GFR NON-AFRICAN AMERICAN > 60
[2017-07-23] MEDS: Clotrimazole 1% Cream(30 gm) TOP SCH ×2 (09:34→18:25)
[2017-07-23] MEDS: Nystatin 100,000 Units/gm Topical Pow(15 gm) TOP SCH ×2 (09:35→18:25)
[2017-07-23] MEDS: Enoxaparin 40 mg Syringe SC SCH (09:38)
--- NOTE | 2017-07-23 13:38 | CP.PCM.PN ---
Subjective - Date & Time of Evaluation Date of Evaluation: 07/23/17 Time of Evaluation: 11:45 - Subjective Subjective: Comfortable, no fevers, less pain in the legs. Objective - Vital Signs/Intake and Output Vital Signs (last 24 hours): Temp Pulse Resp BP Pulse Ox 98.6 F 71 18 107/67 97 07/22/17 07:30 07/22/17 07:30 07/22/17 07:30 07/22/17 07:30 07/22/17 07:30 Intake and Output: 07/22/17 07/22/17 06:59 18:59 Intake Total 900 640 Balance 900 640 - Medications Medications: Current Medications Acetaminophen (Tylenol 325mg Tab) 650 mg PO Q6H PRN PRN Reason: Fever >100.4 F Last Admin: 07/22/17 15:11 Dose: 650 mg Clotrimazole (Lotrimin 1%) 0 gm TOP BID [facility] Last Admin: 07/22/17 10:07 Dose: 1 10 Enoxaparin Sodium (Lovenox) 40 mg SC DAILY [facility] PRN Reason: Protocol Last Admin: 07/22/17 10:04 Dose: 40 mg Famotidine (Pepcid) 20 mg PO BID [facility] Last Admin: 07/22/17 10:03 Dose: 20 mg Linezolid (Zyvox 600mg/300ml D5w) 600 mg in 300 mls @ 200 mls/hr IVPB Q12 [facility] PRN Reason: Protocol Stop: 07/26/17 15:41 Last Admin: 07/22/17 10:04 Dose: 200 mls/hr Meropenem (Merrem Iv 1 Gm Premix) 50 mls @ 100 mls/hr IVPB Q8 [facility] PRN Reason: Protocol Stop: 07/25/17 08:31 Last Admin: 07/22/17 13:38 Dose: 100 mls/hr Insulin Human Regular (Humulin R Low) 0 units SC ACHS [facility] PRN Reason: Protocol Last Admin: 07/22/17 12:38 Dose: Not Given Nystatin (Nystop Topical Powder) 0 gm TOP BID [facility] Last Admin: 07/22/17 10:07 Dose: 1 applic Sodium Chloride ([place] Nasal [place]) 0 ml NS TID [facility] Last Admin: 07/22/17 13:36 Dose: 1 sprays - Labs Labs: 07/22/17 08:26 07/22/17 08:30 PT 15.4 SECONDS (9.4-12.5) H 07/19/17 06:30 INR 1.33 (0.93-1.08) H 07/19/17 06:30 APTT 30.7 Seconds (25.1-36.5) 07/19/17 06:30 - Constitutional Appears: Non-toxic, Chronically Ill - Head Exam Head Exam: NORMAL INSPECTION - Neck Exam Neck Exam: absent: Meningismus - Respiratory Exam Respiratory Exam: Decreased Breath Sounds - Cardiovascular Exam Cardiovascular Exam: +S1, +S2 - GI/Abdominal Exam GI & Abdominal Exam: Soft. absent: Tenderness - Extremities Exam Additional comments: left leg still with swelling but slowly decreasing erythem Assessment and Plan - Assessment and Plan (Free Text) Plan: Assessment sepsis due to bilateral lower extremity skin and skin structure infection in a patient with chronic lymphedema and chronic venous stasis ulcers - has long standing history, and he previously grew multidrug-resistant Klebsiella and Proteus history of lower extremity cellulitis in the past obesity with BMI 51 history of urinary bladder infections in the past Plan continue Zyvox day 5 and continue Merrem day 6; wound cx showing Proteus and E. faecalis, follow up blood cx - would recommend to continue IV antibiotics for now and would recommend total 10-14 days of antibiotics Follow up further Podiatry recommendations and evaluation Will continue to monitor clinically
--- NOTE | 2017-07-23 16:05 | CP.PCM.PN ---
Subjective - Date & Time of Evaluation Date of Evaluation: 07/23/17 Time of Evaluation: 12:50 - Subjective Subjective: Podiatry Progress Note - Dr. Tejeda 47 year old male patient with chronic idiopathic lymphedema seen and evaluated at bedside for RLE cellulitis and b/l chronic non-healing ulcerations. Patient is seen resting comfortably in chair and in NAD. He states he feels the pain and redness in the right lower extremity is diminishing. Patient denies abdominal pain, chest pain, shortness of breath, nausea, vomiting, diarrhea. Patient has no new pedal complains. Objective - Vital Signs/Intake and Output Vital Signs (last 24 hours): Temp Pulse Resp BP Pulse Ox 97.9 F 71 20 112/82 95 07/23/17 07:30 07/23/17 07:30 07/23/17 07:30 07/23/17 07:30 07/23/17 07:30 Intake and Output: 07/23/17 07/23/17 06:59 18:59 Intake Total 360 1160 Balance 360 1160 - Medications Medications: Current Medications Acetaminophen (Tylenol 325mg Tab) 650 mg PO Q6H PRN PRN Reason: Fever >100.4 F Last Admin: 07/23/17 09:39 Dose: 650 mg Clotrimazole (Lotrimin 1%) 0 gm TOP BID [facility] Last Admin: 07/23/17 09:34 Dose: 1 10 Enoxaparin Sodium (Lovenox) 40 mg SC DAILY [facility] PRN Reason: Protocol Last Admin: 07/23/17 09:38 Dose: 40 mg Famotidine (Pepcid) 20 mg PO BID [facility] Last Admin: 07/23/17 09:41 Dose: 20 mg Linezolid (Zyvox 600mg/300ml D5w) 600 mg in 300 mls @ 200 mls/hr IVPB Q12 [facility] PRN Reason: Protocol Stop: 07/26/17 15:41 Last Admin: 07/23/17 09:43 Dose: 200 mls/hr Meropenem (Merrem Iv 1 Gm Premix) 50 mls @ 100 mls/hr IVPB Q8 [facility] PRN Reason: Protocol Stop: 07/25/17 08:31 Last Admin: 07/23/17 13:34 Dose: 100 mls/hr Insulin Human Regular (Humulin R Low) 0 units SC ACHS [facility] PRN Reason: Protocol Last Admin: 07/23/17 13:33 Dose: Not Given Nystatin (Nystop Topical Powder) 0 gm TOP BID [facility] Last Admin: 07/23/17 09:35 Dose: 1 applic Sodium Chloride ([place] Nasal [place]) 0 ml NS TID [facility] Last Admin: 07/23/17 13:34 Dose: 1 sprays - Labs Labs: 07/23/17 08:24 07/23/17 08:42 PT 15.4 SECONDS (9.4-12.5) H 07/19/17 06:30 INR 1.33 (0.93-1.08) H 07/19/17 06:30 APTT 30.7 Seconds (25.1-36.5) 07/19/17 06:30 - Constitutional Appears: Well, Non-toxic, No Acute Distress - Extremities Exam Additional comments: VASC: DP pulses palpable 2/4 b/l. PT pusles nonpalpable secondary to edema. +4 pitting edema noted b/l. Temperature gradient warm to warm LLE, warm to hot RLE. NEURO: Gross sensation intact. DERM: Lymphedema bilaterally with lichenification -RLE=Erythema with proximal dermarcation noted. No open ulcerations noted to the R LE. No fluctuatance, no purulence, no abscess noted. -LLE=Superficial ulceration measuring 6.2 x 3.1cm noted to posterior aspect of leg with fibro-granular base and mild serous drainage/weeping noted ORTHO: Pain on palpation RLE erythema. No pain on palpation LLE. - Neurological Exam Neurological Exam: Alert, Awake, Oriented x3 - Psychiatric Exam Psychiatric exam: Normal Affect, Normal Mood Assessment and Plan - Assessment and Plan (Free Text) Assessment: 47 year old male with 1) RIght lower leg cellulitis; resolving 2) Left posterior calf superficial ulceration 3) b/l lymphedema Plan: Patient seen and evaluated. Discussed with attending, Dr. Tejeda. Labs, charts, vitals reviewed: Afebrile, absent leukocytosis. Bilateral venous duplex (07/17/17): No evidence for DVT b/l however exam very limited 2/2 body habitus and edema Left leg WCx (07/17/17) results- Proteus Mirabilis & enterococcus faecalis Right leg WCx (07/18/17) results- Pseudomonas Aeruginosa and Proteus Mirabilis Bilateral legs cleansed with saline and antifungal and nystain applied to the LE Left wound cleansed and maxosorb with optifoam applied Continue to monitor erythema RLE Continue abx per ID recomendtions: 10-14 days of IV abx total continue: Zyvox day 09/28 & Merrem day 10/29 Podiatry will continue to follow while in house
[2017-07-24 01:21] VITALS: RESP 18; O2SAT 94
[2017-07-24] MEDS: Insulin Reg-LOW-Coverage SC SCH ×3 (02:45→12:34)
[2017-07-24] MEDS: Meropenem IV 1 gm in NS 50 ML IVPB SCH ×2 (05:31→13:05)
[2017-07-24 07:29] LABS: BASO # 0.03 K/mm3 (0.0-2.0); BASO % 0.4 % (0.0-3.0); EOS # 0.1 (0.0-0.7); EOS % 1.7 % (1.5-5.0); GRAN # 5.09 (1.4-6.5); GRAN % 70.8 % (50.0-68.0); HEMOGLOBIN 10.1 g/dL (14.0-18.0); LYMPH # 1.3 (1.2-3.4); MEAN CELL VOLUME 87.3 fl (80.0-105.0); MEAN CORPUSCULAR HGB CONC 32.1 g/dl (31.0-37.0); MEAN PLATELET VOLUME 8.5 fl (7.0-11.0); MONO # 0.7 (0.1-0.6); MONO % 9.1 % (1.0-6.0); RBC 3.61 10^6/uL (3.5-6.1); RED CELL DISTRIBUTION WIDTH 14.6 % (11.5-14.5); WHITE BLOOD COUNT 7.2 10^3/ul (4.5-11.0)
[2017-07-24 08:16] VITALS: BP 108/72; PULSE 85; TEMP 98.4
[2017-07-24] MEDS: Nystatin 100,000 Units/gm Topical Pow(15 gm) TOP SCH (09:16)
[2017-07-24] MEDS: Clotrimazole 1% Cream(30 gm) TOP SCH (09:17)
[2017-07-24] MEDS: Enoxaparin 40 mg Syringe SC SCH (09:17)
[2017-07-24] MEDS: Linezolid 600 mg in D5W 300 ml 600 MG/300 ML BAG IVPB SCH (09:17)
--- NOTE | 2017-07-24 09:46 | CP.PCM.DIS ---
<Trever Gunderson - Last Filed: 07/24/17 16:47> Provider - Provider Date of Admission: 07/17/17 21:54 Attending physician: Ld Richardson MD Primary care physician: Yogi Oliver JD, MD Consults: Infectious disease: Dr. Og Podiatry: Dr. Tejeda Time Spent in preparation of Discharge (in minutes): 45 Diagnosis - Discharge Diagnosis (1) Obesity Status: Chronic Priority: High (2) Diabetes mellitus Status: Chronic Priority: Low (3) Cellulitis, leg Status: Acute Priority: High (4) Lymphedema Status: Chronic Priority: High Hospital Course - Lab Results Lab Results: Micro Results 07/18/17 13:45 Leg - Right Gram Stain - Final 07/18/17 13:45 Leg - Right Wound Culture - Final Pseudomonas Aeruginosa Proteus Mirabilis Most Recent Lab Values WBC 7.2 10^3/ul (4.5-11.0) 07/24/17 07:00 RBC 3.61 10^6/uL (3.5-6.1) 07/24/17 07:00 Hgb 10.1 g/dL (14.0-18.0) L 07/24/17 07:00 Hct 31.5 % (42.0-52.0) L 07/24/17 07:00 MCV 87.3 fl (80.0-105.0) 07/24/17 07:00 MCH 28.0 pg (25.0-35.0) 07/24/17 07:00 MCHC 32.1 g/dl (31.0-37.0) 07/24/17 07:00 RDW 14.6 % (11.5-14.5) H 07/24/17 07:00 Plt Count 274 10^3/uL (120.0-450.0) 07/24/17 07:00 MPV 8.5 fl (7.0-11.0) 07/24/17 07:00 Gran % 70.8 % (50.0-68.0) H 07/24/17 07:00 Lymph % (Auto) 18.0 % (22.0-35.0) L 07/24/17 07:00 [place] % (Auto) 9.1 % (1.0-6.0) H 07/24/17 07:00 Eos % (Auto) 1.7 % (1.5-5.0) 07/24/17 07:00 Baso % (Auto) 0.4 % (0.0-3.0) 07/24/17 07:00 Gran # 5.09 (1.4-6.5) 07/24/17 07:00 Lymph # (Auto) 1.3 (1.2-3.4) 07/24/17 07:00 [place] # (Auto) 0.7 (0.1-0.6) H 07/24/17 07:00 Eos # (Auto) 0.1 (0.0-0.7) 07/24/17 07:00 Baso # (Auto) 0.03 K/mm3 (0.0-2.0) 07/24/17 07:00 ESR 115 mm/hr (0.0-15.0) H 07/18/17 06:30 PT 15.4 SECONDS (9.4-12.5) H 07/19/17 06:30 INR 1.33 (0.93-1.08) H 07/19/17 06:30 APTT 30.7 Seconds (25.1-36.5) 07/19/17 06:30 D-Dimer, Quantitative 1940 ng/mL (0-243) H 07/17/17 15:40 pO2 44 mm/Hg (30-55) 07/17/17 15:40 VBG pH 7.41 (7.32-7.43) 07/17/17 15:40 VBG pCO2 44.0 (40-60) 07/17/17 15:40 VBG HCO3 27.9 mmol/l (21-28) 07/17/17 15:40 VBG Total CO2 29.3 mmol.L (22-28) H 07/17/17 15:40 VBG O2 Sat (Calc) 84.6 % (40-65) H 07/17/17 15:40 VBG Base Excess 2.7 mmol/L (0.0-2.0) H 07/17/17 15:40 VBG Potassium 4.0 mmol/L (3.6-5.2) 07/17/17 15:40 Sodium 132.0 mmol/L (132-148) 07/17/17 15:40 Chloride 100.0 mmol/L (98-107) 07/17/17 15:40 Glucose 136 mg/dl (75-110) H 07/17/17 15:40 Lactate 1.8 mmol/L (0.7-2.1) 07/17/17 15:40 FiO2 21.0 % 07/17/17 15:40 Sodium 139 mmol/L (132-148) 07/23/17 08:42 Potassium 3.9 mmol/L (3.6-5.0) 07/23/17 08:42 Chloride 104 mmol/L (98-107) 07/23/17 08:42 Carbon Dioxide 28 mmol/L (21-33) 07/23/17 08:42 Anion Gap 11 (10-20) 07/23/17 08:42 BUN 10 mg/dL (7-21) 07/23/17 08:42 Creatinine 0.5 mg/dl (0.8-1.5) L 07/23/17 08:42 Est GFR ( Amer) > 60 07/23/17 08:42 Est GFR (Non-Af Amer) > 60 07/23/17 08:42 POC Glucose (mg/dL) 111 mg/dL (65-110) H 07/24/17 07:15 Random Glucose 123 mg/dL (70-110) H 07/23/17 08:42 Hemoglobin A1c 6.5 % (4.2-6.5) 07/18/17 06:30 Calcium 8.7 mg/dL (8.4-10.5) 07/23/17 08:42 Total Bilirubin 0.9 mg/dL (0.2-1.3) 07/23/17 08:42 AST 39 U/L (17-59) 07/23/17 08:42 ALT 51 U/L (7-56) 07/23/17 08:42 Alkaline Phosphatase 133 U/L (38-126) H 07/23/17 08:42 Troponin I < 0.01 ng/mL 07/18/17 19:04 C-React Prot High Sens > 15.00 mg/L (1.00-3.00) H 07/18/17 06:30 NT-Pro-B Natriuret Pep 313 pg/mL (0-450) 07/18/17 06:30 Total Protein 7.1 g/dL (5.8-8.3) 07/23/17 08:42 Albumin 3.1 g/dL (3.0-4.8) 07/23/17 08:42 Globulin 4.0 gm/dL 07/23/17 08:42 Albumin/Globulin Ratio 0.8 (1.1-1.8) L 07/23/17 08:42 Procalcitonin 10.32 NG/ML (0.19-0.49) H 07/18/17 06:30 Venous Blood Potassium 4.0 mmol/L (3.6-5.2) 07/17/17 15:40 Urine Color Yellow (YELLOW) 07/17/17 17:58 Urine Appearance Clear (CLEAR) 07/17/17 17:58 Urine pH 6.0 (4.7-8.0) 07/17/17 17:58 Ur Specific [place] 1.020 (1.005-1.035) 07/17/17 17:58 Urine Protein 30 mg/dL (<30 mg/dL) H 07/17/17 17:58 Urine Glucose (UA) Negative mg/dL (NEGATIVE) 07/17/17 17:58 Urine Ketones Negative mg/dL (NEGATIVE) 07/17/17 17:58 Urine Blood Trace-intact (NEGATIVE) H 07/17/17 17:58 Urine Nitrate Negative (NEGATIVE) 07/17/17 17:58 Urine Bilirubin Small (NEGATIVE) H 07/17/17 17:58 Urine Urobilinogen 1.0 E.U./dL (<1 E.U./dL) H 07/17/17 17:58 Ur Leukocyte Esterase Negative Wu/uL (NEGATIVE) 07/17/17 17:58 Urine RBC 0 - 2 /hpf (0-2) 07/17/17 17:58 Urine WBC 0 - 2 /hpf (0-6) 07/17/17 17:58 Ur Epithelial Cells 3 - 4 /hpf (0-5) 07/17/17 17:58 Urine Bacteria Few (NEG) 07/17/17 17:58 Hepatitis A IgM Ab Negative (NEGATIVE) 07/18/17 05:30 Hep Bs Antigen Negative (NEGATIVE) 07/18/17 05:30 Hep B Core IgM Ab Negative (NEGATIVE) 07/18/17 05:30 Hepatitis C Antibody Negative (NEGATIVE) 07/18/17 05:30 Influenza Typ A,B (EIA) Negative for flu a/b (NEGATIVE) 07/17/17 20:25 - Hospital Course Hospital Course: Patient is a 47 year old male with past medical history of bilateral lower extremity lymphedema, morbid obesity and DM2 who presented with left lower extremity edema/redness and cellulitis admitted for evaluation of right lower extremity cellulitis and posterior left calf wound. Patient reported he has a chronic issue with lower extremity lymphedema and specifically to his left lower extremity with drainage from his open wounds. Patient is evaluated biweekly and followed by Dr. Tejeda in the wound clinic at [facility] [place]. For this admission, he was sent over from wound clinic to ED for evaluation. Patient reports ongoing issue with lower extremity lasting months. Patient states the 3 days prior he was develoing redness and increased drainage described as clear to yellow for a span of a few days. Patient also endorsed that he experienced chills, fever, and pain associated with the lower left extremity. Labs revealed patient had a leukocyte count of 12.2. Imaging done included x-rays of the foot , tibia and fibula which revealed no acute fractures or disease. Lower extremity venous dopplers were also done which revealed no signs of deep vein thromboses. Wound cultures from left leg ulcer were positive for Proteus mirabilis and Enterococcus faecialis; patient was placed on antibiotic therapy which included zyvox and merrem. Patient continued to improve clinically during course of hospital stay. Patient did experience shortness of breath and chest pain during initial cours of stay however EKG and serial troponins were negative. Echocardiogram was also ordered which revealed a normal left ventricle with ejection fraction of 55% without any evidence of vegetations or thrombus. Patient continued to receive wound care by podiatry while inpatient. Once cleared from podiatry and infectious disease, patient was cleared for discharge with placement of PICC line so he could continue to receive antibiotics and home with services for a total of 10-14 days of antibiotics as per infectious disease. Patient was also advised to obtain an outpatient sleep study and follow up with his PMD regarding this admission. Case discussed and reviewed with Dr. Eh Gunderson PGY1 Discharge Exam - Head Exam Head Exam: NORMAL INSPECTION - ENT Exam ENT Exam: Mucous Membranes Dry, Mucous Membranes Moist - Neck Exam Neck exam: Normal Inspection - Respiratory Exam Respiratory Exam: Clear to PA & Lateral, NORMAL BREATHING PATTERN - Cardiovascular Exam Cardiovascular Exam: REGULAR RHYTHM, +S1, +S2 - GI/Abdominal Exam GI & Abdominal Exam: Normal Bowel Sounds, Unremarkable - Extremities Exam Additional comments: LEFT LE demonstrates skin changes consistent with chronic lymphedema and venous stasis. No erythema or callor present. RIGHT LE demonstrates skin changes with chronic lymphedema and venous stasis with erythema extending over roughly 30% of distal leg. No open ulcers, wounds, new drainage. No areas of fluctuance or induration. Some mild tenderness over medial aspect of lower leg. Erythema improved from prior border indication. - Neurological Exam Neurological exam: CN II-XII Intact, Oriented x3 - Psychiatric Exam Psychiatric exam: Normal Affect, Normal Mood - Skin Skin Exam: Intact, Warm Discharge Plan - Discharge Medications Prescriptions: Clotrimazole 1% Cream [Lotrimin 1%] 1 tub TOP BID #1 tube Linezolid 600 mg in D5W 300 ml [Zyvox IV] 600 mg IV Q12 7 Days bag Meropenem IV 1 gm in NS [Merrem IV 1 gm Premix] 1 gm IVPB Q8 7 Days bag Nystatin [Nystop Topical Powder] 1 bottle TOP BID #1 bottle Sodium Chloride Nasal [place] [[place] Nasal [place]] 1 bot NS TID #1 bottle - Follow Up Plan Condition: FAIR Disposition: HOME/ ROUTINE Instructions: Anxiety, Adult (DC), Lymphedema (DC), Preventing Falls, Cellulitis (Skin Infection), Adult (DC) Additional Instructions: Discharge Instructions 1. Follow up with podiatry outpatient. 2. Follow up with Dr Oliver, primary care doctor in 1 week after discharge. Please obtain a referral for a sleep study from the primary care doctor to investigate obstructive sleep apnea. 3. WIll need total 10-14 days of IV antibiotics. 4. Have already provided script to home infusion service: (a) Zyvox and Merem x 7 days, (b) CBC, CMP after 1 week of antibiotics, (c) discontine PICC after completion of IV antibiotics Medications Holding lasix. Pt's blood pressure is normal during this hospital stay. Referrals: Yogi Oliver JD, MD [Primary Care Provider] - Rosaura Tejeda DPM [Staff Provider] - <Octavio Stauffer - Last Filed: 07/24/17 17:13> Provider - Provider Date of Admission: 07/17/17 21:54 Attending physician: Octavio Stauffer MD Primary care physician: Yogi Oliver JD, MD Hospital Course - Lab Results Lab Results: Micro Results 07/18/17 13:45 Leg - Right Gram Stain - Final 07/18/17 13:45 Leg - Right Wound Culture - Final Pseudomonas Aeruginosa Proteus Mirabilis Most Recent Lab Values WBC 7.2 10^3/ul (4.5-11.0) 07/24/17 07:00 RBC 3.61 10^6/uL (3.5-6.1) 07/24/17 07:00 Hgb 10.1 g/dL (14.0-18.0) L 07/24/17 07:00 Hct 31.5 % (42.0-52.0) L 07/24/17 07:00 MCV 87.3 fl (80.0-105.0) 07/24/17 07:00 MCH 28.0 pg (25.0-35.0) 07/24/17 07:00 MCHC 32.1 g/dl (31.0-37.0) 07/24/17 07:00 RDW 14.6 % (11.5-14.5) H 07/24/17 07:00 Plt Count 274 10^3/uL (120.0-450.0) 07/24/17 07:00 MPV 8.5 fl (7.0-11.0) 07/24/17 07:00 Gran % 70.8 % (50.0-68.0) H 07/24/17 07:00 Lymph % (Auto) 18.0 % (22.0-35.0) L 07/24/17 07:00 [place] % (Auto) 9.1 % (1.0-6.0) H 07/24/17 07:00 Eos % (Auto) 1.7 % (1.5-5.0) 07/24/17 07:00 Baso % (Auto) 0.4 % (0.0-3.0) 07/24/17 07:00 Gran # 5.09 (1.4-6.5) 07/24/17 07:00 Lymph # (Auto) 1.3 (1.2-3.4) 07/24/17 07:00 [place] # (Auto) 0.7 (0.1-0.6) H 07/24/17 07:00 Eos # (Auto) 0.1 (0.0-0.7) 07/24/17 07:00 Baso # (Auto) 0.03 K/mm3 (0.0-2.0) 07/24/17 07:00 ESR 115 mm/hr (0.0-15.0) H 07/18/17 06:30 PT 15.4 SECONDS (9.4-12.5) H 07/19/17 06:30 INR 1.33 (0.93-1.08) H 07/19/17 06:30 APTT 30.7 Seconds (25.1-36.5) 07/19/17 06:30 D-Dimer, Quantitative 1940 ng/mL (0-243) H 07/17/17 15:40 pO2 44 mm/Hg (30-55) 07/17/17 15:40 VBG pH 7.41 (7.32-7.43) 07/17/17 15:40 VBG pCO2 44.0 (40-60) 07/17/17 15:40 VBG HCO3 27.9 mmol/l (21-28) 07/17/17 15:40 VBG Total CO2 29.3 mmol.L (22-28) H 07/17/17 15:40 VBG O2 Sat (Calc) 84.6 % (40-65) H 07/17/17 15:40 VBG Base Excess 2.7 mmol/L (0.0-2.0) H 07/17/17 15:40 VBG Potassium 4.0 mmol/L (3.6-5.2) 07/17/17 15:40 Sodium 132.0 mmol/L (132-148) 07/17/17 15:40 Chloride 100.0 mmol/L (98-107) 07/17/17 15:40 Glucose 136 mg/dl (75-110) H 07/17/17 15:40 Lactate 1.8 mmol/L (0.7-2.1) 07/17/17 15:40 FiO2 21.0 % 07/17/17 15:40 Sodium 139 mmol/L (132-148) 07/23/17 08:42 Potassium 3.9 mmol/L (3.6-5.0) 07/23/17 08:42 Chloride 104 mmol/L (98-107) 07/23/17 08:42 Carbon Dioxide 28 mmol/L (21-33) 07/23/17 08:42 Anion Gap 11 (10-20) 07/23/17 08:42 BUN 10 mg/dL (7-21) 07/23/17 08:42 Creatinine 0.5 mg/dl (0.8-1.5) L 07/23/17 08:42 Est GFR ( Amer) > 60 07/23/17 08:42 Est GFR (Non-Af Amer) > 60 07/23/17 08:42 POC Glucose (mg/dL) 120 mg/dL (65-110) H 07/24/17 15:49 Random Glucose 123 mg/dL (70-110) H 07/23/17 08:42 Hemoglobin A1c 6.5 % (4.2-6.5) 07/18/17 06:30 Calcium 8.7 mg/dL (8.4-10.5) 07/23/17 08:42 Total Bilirubin 0.9 mg/dL (0.2-1.3) 07/23/17 08:42 AST 39 U/L (17-59) 07/23/17 08:42 ALT 51 U/L (7-56) 07/23/17 08:42 Alkaline Phosphatase 133 U/L (38-126) H 07/23/17 08:42 Troponin I < 0.01 ng/mL 07/18/17 19:04 C-React Prot High Sens > 15.00 mg/L (1.00-3.00) H 07/18/17 06:30 NT-Pro-B Natriuret Pep 313 pg/mL (0-450) 07/18/17 06:30 Total Protein 7.1 g/dL (5.8-8.3) 07/23/17 08:42 Albumin 3.1 g/dL (3.0-4.8) 07/23/17 08:42 Globulin 4.0 gm/dL 07/23/17 08:42 Albumin/Globulin Ratio 0.8 (1.1-1.8) L 07/23/17 08:42 Procalcitonin 10.32 NG/ML (0.19-0.49) H 07/18/17 06:30 Venous Blood Potassium 4.0 mmol/L (3.6-5.2) 07/17/17 15:40 Urine Color Yellow (YELLOW) 07/17/17 17:58 Urine Appearance Clear (CLEAR) 07/17/17 17:58 Urine pH 6.0 (4.7-8.0) 07/17/17 17:58 Ur Specific [place] 1.020 (1.005-1.035) 07/17/17 17:58 Urine Protein 30 mg/dL (<30 mg/dL) H 07/17/17 17:58 Urine Glucose (UA) Negative mg/dL (NEGATIVE) 07/17/17 17:58 Urine Ketones Negative mg/dL (NEGATIVE) 07/17/17 17:58 Urine Blood Trace-intact (NEGATIVE) H 07/17/17 17:58 Urine Nitrate Negative (NEGATIVE) 07/17/17 17:58 Urine Bilirubin Small (NEGATIVE) H 07/17/17 17:58 Urine Urobilinogen 1.0 E.U./dL (<1 E.U./dL) H 07/17/17 17:58 Ur Leukocyte Esterase Negative Wu/uL (NEGATIVE) 07/17/17 17:58 Urine RBC 0 - 2 /hpf (0-2) 07/17/17 17:58 Urine WBC 0 - 2 /hpf (0-6) 07/17/17 17:58 Ur Epithelial Cells 3 - 4 /hpf (0-5) 07/17/17 17:58 Urine Bacteria Few (NEG) 07/17/17 17:58 Hepatitis A IgM Ab Negative (NEGATIVE) 07/18/17 05:30 Hep Bs Antigen Negative (NEGATIVE) 07/18/17 05:30 Hep B Core IgM Ab Negative (NEGATIVE) 07/18/17 05:30 Hepatitis C Antibody Negative (NEGATIVE) 07/18/17 05:30 Influenza Typ A,B (EIA) Negative for flu a/b (NEGATIVE) 07/17/17 20:25 Attending/Attestation - Attestation I have personally seen and examined this patient.: Yes I have fully participated in the care of the patient.: Yes I have reviewed all pertinent clinical information, including history, physical exam and plan: Yes Notes (Text): 07/24/17 17:11 Attending note; Patient seen and examined with resident. Patient is a 47 year old male with history of diabetes, Morbid obesity, chronic idiopathic lymphedema, bilateral stasis dermatitis who was admitted for evaluation of RLE cellulitis and posterior left calf wound. Wound culture from LEFT leg ulcer returns significant for Proteus mirabilis and Enterococcus faecialis. Wound care given by podiatry . ID evaluation appreciated . Patient was treated with IV meropenem and zyvox. PICC line placed. Patient will complete 7 more days of IV anti-biotics at home. Home care arranged by case managers. Blood and urine culture negative. Discharge home today. Upon discharge patient will follow up with Dr Oliver.
--- NOTE | 2017-07-24 15:18 | RAD ---
HISTORY: post Picc insertion COMPARISON: No prior. FINDINGS: LUNGS: No active pulmonary disease. PLEURA: No significant pleural effusion identified, no pneumothorax apparent. CARDIOVASCULAR: Normal. OSSEOUS STRUCTURES: No significant abnormalities. VISUALIZED UPPER ABDOMEN: Normal. OTHER FINDINGS: None. IMPRESSION: The PICC line is in satisfactory position just above the atrial junction
--- NOTE | 2017-07-24 16:41 | CP.PCM.PN ---
Subjective - Date & Time of Evaluation Date of Evaluation: 07/24/17 Time of Evaluation: 12:40 - Subjective Subjective: Pain on the right leg is slowly improving, no fevers. Objective - Vital Signs/Intake and Output Vital Signs (last 24 hours): Temp Pulse Resp BP Pulse Ox 97.9 F 71 20 112/82 95 07/23/17 07:30 07/23/17 07:30 07/23/17 07:30 07/23/17 07:30 07/23/17 07:30 Intake and Output: 07/23/17 07/23/17 06:59 18:59 Intake Total 360 200 Balance 360 200 - Medications Medications: Current Medications Acetaminophen (Tylenol 325mg Tab) 650 mg PO Q6H PRN PRN Reason: Fever >100.4 F Last Admin: 07/23/17 09:39 Dose: 650 mg Clotrimazole (Lotrimin 1%) 0 gm TOP BID [facility] Last Admin: 07/23/17 09:34 Dose: 1 10 Enoxaparin Sodium (Lovenox) 40 mg SC DAILY [facility]AN PRN Reason: Protocol Last Admin: 07/23/17 09:38 Dose: 40 mg Famotidine (Pepcid) 20 mg PO BID [facility] Last Admin: 07/23/17 09:41 Dose: 20 mg Linezolid (Zyvox 600mg/300ml D5w) 600 mg in 300 mls @ 200 mls/hr IVPB Q12 [facility] PRN Reason: Protocol Stop: 07/26/17 15:41 Last Admin: 07/23/17 09:43 Dose: 200 mls/hr Meropenem (Merrem Iv 1 Gm Premix) 50 mls @ 100 mls/hr IVPB Q8 [facility] PRN Reason: Protocol Stop: 07/25/17 08:31 Last Admin: 07/23/17 06:24 Dose: 100 mls/hr Insulin Human Regular (Humulin R Low) 0 units SC ACHS [facility] PRN Reason: Protocol Last Admin: 07/23/17 09:34 Dose: Not Given Nystatin (Nystop Topical Powder) 0 gm TOP BID [facility] Last Admin: 07/23/17 09:35 Dose: 1 applic Sodium Chloride ([place] Nasal [place]) 0 ml NS TID [facility] Last Admin: 07/23/17 09:35 Dose: 1 sprays - Labs Labs: 07/23/17 08:24 07/23/17 08:42 PT 15.4 SECONDS (9.4-12.5) H 07/19/17 06:30 INR 1.33 (0.93-1.08) H 07/19/17 06:30 APTT 30.7 Seconds (25.1-36.5) 07/19/17 06:30 - Constitutional Appears: Non-toxic, Chronically Ill - Head Exam Head Exam: NORMAL INSPECTION - ENT Exam ENT Exam: Mucous Membranes Moist - Neck Exam Neck Exam: absent: Meningismus - Respiratory Exam Respiratory Exam: Decreased Breath Sounds - Cardiovascular Exam Cardiovascular Exam: +S1, +S2 - GI/Abdominal Exam GI & Abdominal Exam: Soft. absent: Tenderness - Extremities Exam Additional comments: both legs with swelling, decreasing erythema on the right Assessment and Plan - Assessment and Plan (Free Text) Plan: Assessment sepsis due to bilateral lower extremity skin and skin structure infection in a patient with chronic lymphedema and chronic venous stasis ulcers - has long standing history, and he previously grew multidrug-resistant Klebsiella and Proteus history of lower extremity cellulitis in the past obesity with BMI 51 history of urinary bladder infections in the past Plan continue Zyvox day 6 and continue Merrem day 7; wound cx showing Proteus and E. faecalis, follow up blood cx - would recommend to continue IV antibiotics and would recommend total 10-14 days of antibiotics Follow up further Podiatry recommendations and evaluation
== END 2017-07-24 18:30 | disposition home or self-care (01) | DRG 872 ==
LOC: ED 14:05 → ERH 21:54 → 2RNO 07-18 01:04 → 5RSO 07-20 19:20
PROVIDERS: ADMIT Internal Medicine; ATTEND Internal Medicine
PROC: 02HV33Z Insertion of Infusion Device into Superior Vena Cava, Percutaneous Approach (ICD-10-PCS; principal; 2017-07-24)
PROC: B548ZZA Ultrasonography of Superior Vena Cava, Guidance (ICD-10-PCS; 2017-07-24)
DX: A41.9 Sepsis, unspecified organism (principal); D68.9 Coagulation defect, unspecified; E11.22 Type 2 diabetes mellitus with diabetic chronic kidney disease; E11.622 Type 2 diabetes mellitus with other skin ulcer; I83.009 Varicose veins of unspecified lower extremity with ulcer of unspecified site; L03.115 Cellulitis of right lower limb; L03.116 Cellulitis of left lower limb; L97.229 Non-pressure chronic ulcer of left calf with unspecified severity; Z68.43 Body mass index [BMI] 50.0-59.9, adult; E66.9 Obesity, unspecified; I87.2 Venous insufficiency (chronic) (peripheral); I87.8 Other specified disorders of veins; I89.0 Lymphedema, not elsewhere classified; N18.9 Chronic kidney disease, unspecified; Z82.3 Family history of stroke; Z82.49 Family history of ischemic heart disease and other diseases of the circulatory system; Z87.440 Personal history of urinary (tract) infections; Z87.891 Personal history of nicotine dependence; B96.4 Proteus (mirabilis) (morganii) as the cause of diseases classified elsewhere; B95.2 Enterococcus as the cause of diseases classified elsewhere; R40.2412 Glasgow coma scale score 13-15, at arrival to emergency department

== ENCOUNTER 2017-11-27 15:30 | Emergency (ER) | payer MEDICAID, MEDICARE ==
--- NOTE | 2017-11-27 15:52 | ED PDOC ---
Arrival/HPI - General Time Seen by Provider: 11/27/17 15:37 Historian: Patient - History of Present Illness Narrative History of Present Illness (Text): 11/27/17 15:49 47yo morbidly obese male with Past medical history of lymphedema, hypertension who present with complaint of depression. States "I have been feeling depress recently". He have never seen a psychiatrist states he was given appointment in 3months time. He denies hallucination, SI/HI, any focal somatic complaint. Past Medical History - Provider Review Nursing Documentation Reviewed: Yes - Infectious Disease Hx of Infectious Diseases: None - Tetanus Immunization Tetanus Immunization: Unknown - Past Medical History Past Medical History: No Previous - Cardiac Hx Cardiac Disorders: No - Pulmonary Hx Respiratory Disorders: No - Neurological Hx Neurological Disorder: No - HEENT Hx HEENT Disorder: No - Renal Hx Renal Disorder: No - Endocrine/Metabolic Hx Endocrine Disorders: Yes Hx Diabetes Mellitus Type 2: Yes - Hematological/Oncological Hx Blood Disorders: No - Integumentary Hx Dermatological Disorder: No - Musculoskeletal/Rheumatological Hx Musculoskeletal Disorders: No Hx Falls: No - Gastrointestinal Hx Gastrointestinal Disorders: No - Genitourinary/Gynecological Hx Genitourinary Disorders: No - Psychiatric Hx Psychophysiologic Disorder: No Hx Substance Use: No - Past Surgical History Past Surgical History: No Previous - Anesthesia Hx Anesthesia: Yes Hx Anesthesia Reactions: No Hx Malignant Hyperthermia: No - Suicidal Assessment Feels Threatened In Home Enviroment: No Family/Social History - Physician Review Nursing Documentation Reviewed: Yes Family/Social History: Unknown Family HX Smoking Status: Never Smoked Hx Alcohol Use: No Hx Substance Use: No Hx Substance Use Treatment: No Allergies/Home Meds Allergies/Adverse Reactions: Allergies No Known Allergies Allergy (Verified 07/25/16 22:48) Review of Systems - Physician Review All systems were reviewed & negative as marked: Yes - Review of Systems Constitutional: Normal Eyes: Normal ENT: Normal Respiratory: Normal Cardiovascular: Normal Gastrointestinal: Normal Genitourinary Male: Normal Musculoskeletal: Normal Skin: Normal Neurological: Normal Endocrine: Normal Hemo/Lymphatic: Normal Psychiatric: Depression. absent: Suicidal Ideation Physical Exam Vital Signs Reviewed: Yes Vital Signs Temp Pulse Resp BP Pulse Ox 11/27/17 16:10 98 F 86 20 132/70 96 Temperature: Afebrile Blood Pressure: Normal Pulse: Regular Respiratory Rate: Normal Appearance: Positive for: Well-Appearing, Non-Toxic, Comfortable Pain Distress: None Mental Status: Positive for: Alert and Oriented X 3 - Systems Exam Head: Present: Atraumatic, Normocephalic Pupils: Present: PERRL Extroacular Muscles: Present: EOMI Conjunctiva: Present: Normal Mouth: Present: Moist Mucous Membranes Neck: Present: Normal Range of Motion Respiratory/Chest: Present: Clear to Auscultation, Good Air Exchange. No: Respiratory Distress, Accessory Muscle Use Cardiovascular: Present: Regular Rate and Rhythm, Normal S1, S2. No: Murmurs Abdomen: No: Tenderness, Distention, Peritoneal Signs Back: Present: Normal Inspection Upper Extremity: Present: Normal Inspection. No: Cyanosis, Edema Lower Extremity: Present: Normal Inspection. No: Edema Neurological: Present: GCS=15, CN II-XII Intact, Speech Normal Skin: Present: Warm, Dry, Normal Color. No: Rashes Psychiatric: Present: Alert, Oriented x 3, Normal Insight, Normal Concentration Medical Decision Making ED Course and Treatment: 11/27/17 18:28 pt presented for stated history. He was medically cleared for psychiatric evaluation and was seen by ANNELIESE Lange. 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 11/27/17 18:32 EKG NSR @87bpm CXR NAD - Lab Interpretations Lab Results: 11/27/17 16:18 11/27/17 16:18 Lab Results 11/27/17 16:18: Alcohol, Quantitative < 10 11/27/17 16:18: Salicylates < 1 L, Acetaminophen < 10.0 L 11/27/17 16:18: Sodium 141, Potassium 4.0, Chloride 101, Carbon Dioxide 29, Anion Gap 14, BUN 15, Creatinine 0.6 L, Est GFR ( Amer) > 60, Est GFR ( Non-Af Amer) > 60, Random Glucose 134 H, Calcium 8.6, Magnesium 1.9, Total Bilirubin 0.7, AST 26, ALT 31, Alkaline Phosphatase 97, Total Protein 8.0, Albumin 4.0, Globulin 4.1, Albumin/Globulin Ratio 1.0 L 11/27/17 16:18: WBC 9.9 D, RBC 4.32, Hgb 12.2 L D, Hct 35.9 L, MCV 83.1 D, MCH 28.2, MCHC 34.0, RDW 14.4, Plt Count 220, MPV 9.4, Gran % 76.8 H, Lymph % ( Auto) 13.3 L, [place] % (Auto) 8.1 H, Eos % (Auto) 1.6, Baso % (Auto) 0.2, Gran # 7.58 H, Lymph # (Auto) 1.3, [place] # (Auto) 0.8 H, Eos # (Auto) 0.2, Baso # (Auto ) 0.02 - RAD Interpretation Radiology Orders: 11/27/17 15:47 CHEST PORTABLE [RAD] Stat Disposition/Present on Arrival - Present on Arrival Any Indicators Present on Arrival: No History of DVT/PE: No History of Uncontrolled Diabetes: No Urinary Catheter: No History Surgical Site Infection Following: None - Disposition Have Diagnosis and Disposition been Completed?: Yes Diagnosis: Depression Disposition: HOME/ ROUTINE Disposition Time: 18:30 Patient Plan: Discharge Condition: STABLE Discharge Instructions (ExitCare): Depression, Adult (DC) Additional Instructions: Follow up with [facility] Return to emergency department for any new symptoms [facility]errals: [facility] - Follow up with primary
[2017-11-27 16:12] VITALS: BMI 44.3
--- NOTE | 2017-11-27 16:18 | RAD ---
HISTORY: admission COMPARISON: Comparison chest 07/24/2017 comparison also made with CTA chest 07/17/2017. FINDINGS: LUNGS: No active pulmonary disease. PLEURA: No significant pleural effusion identified, no pneumothorax apparent. CARDIOVASCULAR: Normal. OSSEOUS STRUCTURES: No significant abnormalities. VISUALIZED UPPER ABDOMEN: Normal. OTHER FINDINGS: None. IMPRESSION: No active disease.
[2017-11-27 16:29] LABS: BASO # 0.02 K/mm3 (0.0-2.0); BASO % 0.2 % (0.0-3.0); EOS # 0.2 (0.0-0.7); EOS % 1.6 % (1.5-5.0); GRAN # 7.58 (1.4-6.5); GRAN % 76.8 % (50.0-68.0); HEMOGLOBIN 12.2 g/dL (14.0-18.0); LYMPH # 1.3 (1.2-3.4); LYMPH % 13.3 % (22.0-35.0); MEAN CELL VOLUME 83.1 fl (80.0-105.0); MEAN CORPUSCULAR HEMOGLOBIN 28.2 pg (25.0-35.0); MEAN PLATELET VOLUME 9.4 fl (7.0-11.0); MONO # 0.8 (0.1-0.6); MONO % 8.1 % (1.0-6.0); RBC 4.32 10^6/uL (3.5-6.1); RED CELL DISTRIBUTION WIDTH 14.4 % (11.5-14.5); WHITE BLOOD COUNT 9.9 10^3/ul (4.5-11.0)
[2017-11-27 16:31] LABS: ACETAMINOPHEN < 10.0 ug/ml (10.0-20.0); SALICYLATE < 1 mg/dL (2.0-20.0)
[2017-11-27 16:33] LABS: ALT/SGPT 31 U/L (7-56); AST/SGOT 26 U/L (17-59); BLOOD UREA NITROGEN 15 mg/dL (7-21); CALCIUM 8.6 mg/dL (8.4-10.5); GFR AFRICAN-AMERICAN > 60; GFR NON-AFRICAN AMERICAN > 60
[2017-11-27 16:45] VITALS: TEMP 98
--- NOTE | 2017-11-27 18:13 | CARD ---
APPROVED REPORT EKG Measurement Heart [id number] <Conclusion> Normal sinus rhythm Normal ECG
[2017-11-27 18:58] VITALS: BP 138/76; PULSE 78; RESP 18; O2SAT 99
== END 2017-11-27 19:03 | disposition home or self-care (01) ==
LOC: ED 15:30
DX: F32.9 Major depressive disorder, single episode, unspecified (principal); E11.9 Type 2 diabetes mellitus without complications; I10 Essential (primary) hypertension; E66.01 Morbid (severe) obesity due to excess calories
CPT/HCPCS: 71045; 80053; 83735; 85025; 90791; 93005; 99283; G0480

== ENCOUNTER 2018-03-05 12:13 | Inpatient (IN) | payer MEDICARE, MEDICAID ==
--- NOTE | 2018-03-05 13:42 | RAD ---
Date of service: 03/05/2018 HISTORY: admission COMPARISON: 11/27/2017 FINDINGS: LUNGS: No active pulmonary disease. PLEURA: No significant pleural effusion identified, no pneumothorax apparent. CARDIOVASCULAR: Normal. OSSEOUS STRUCTURES: No significant abnormalities. VISUALIZED UPPER ABDOMEN: Normal. OTHER FINDINGS: None. IMPRESSION: No active disease.
[2018-03-05 14:14] LABS: BASO # 0.01 K/mm3 (0.0-2.0); BASO % 0.1 % (0.0-3.0); EOS % 0.4 % (1.5-5.0); GRAN # 7.03 (1.4-6.5); HEMOGLOBIN 12.3 g/dL (14.0-18.0); LYMPH # 0.8 (1.2-3.4); LYMPH % 9.5 % (22.0-35.0); MEAN CELL VOLUME 85.3 fl (80.0-105.0); MEAN CORPUSCULAR HEMOGLOBIN 28.6 pg (25.0-35.0); MEAN CORPUSCULAR HGB CONC 33.5 g/dl (31.0-37.0); MONO # 0.6 (0.1-0.6); RBC 4.3 10^6/uL (3.5-6.1); RED CELL DISTRIBUTION WIDTH 15.3 % (11.5-14.5); WHITE BLOOD COUNT 8.5 10^3/ul (4.5-11.0)
[2018-03-05 14:20] LABS: ALBUMIN 3.9 g/dL (3.0-4.8); ALT/SGPT 24 U/L (7-56); AST/SGOT 28 U/L (17-59); BLOOD UREA NITROGEN 17 mg/dL (7-21); CALCIUM 8.7 mg/dL (8.4-10.5); GFR NON-AFRICAN AMERICAN > 60; INR 1.38; PARTIAL THROMBOPLASTIN TIME 30.6 Seconds (25.1-36.5)
[2018-03-05] MEDS ORDERED: Piperacillin/Tazobact 2.25gm 2.25 GM/100 ML BAG IVPB STA (14:32)
--- NOTE | 2018-03-05 14:38 | ED PDOC ---
Arrival/HPI - General Chief Complaint: Abnormal Skin Integrity Time Seen by Provider: 03/05/18 12:14 Historian: Patient - History of Present Illness Narrative History of Present Illness (Text): 03/05/18 16:33 48yo male with pmhx of Diabetes, lymphedema referred to ED by the Account Supervisor for admission. Patient notes worsening swelling and redness for few days. Saw the valve repairer today and was referred to ED for cellulitis admission. Patient report Tmax of 101 last night. Denies nausea, vomiting, SOB, abdominal pain, chest pain, any other complaint. Past Medical History - Provider Review Nursing Documentation Reviewed: Yes - Infectious Disease Hx of Infectious Diseases: None - Tetanus Immunization Tetanus Immunization: Unknown - Past Medical History Past Medical History: No Previous - Cardiac Hx Cardiac Disorders: No - Pulmonary Hx Respiratory Disorders: No - Neurological Hx Neurological Disorder: No - HEENT Hx HEENT Disorder: No - Renal Hx Renal Disorder: No - Endocrine/Metabolic Hx Endocrine Disorders: Yes Hx Diabetes Mellitus Type 2: Yes - Hematological/Oncological Hx Blood Disorders: No - Integumentary Hx Dermatological Disorder: Yes Other/Comment: CHRONIC WOUNDS TO LE'S - Musculoskeletal/Rheumatological Hx Musculoskeletal Disorders: No - Gastrointestinal Hx Gastrointestinal Disorders: No - Genitourinary/Gynecological Hx Genitourinary Disorders: No - Psychiatric Hx Psychophysiologic Disorder: No Hx Substance Use: No - Past Surgical History Past Surgical History: No Previous - Anesthesia Hx Anesthesia: Yes Hx Anesthesia Reactions: No Hx Malignant Hyperthermia: No - Suicidal Assessment Feels Threatened In Home Enviroment: No Family/Social History - Physician Review Nursing Documentation Reviewed: Yes Family/Social History: Unknown Family HX Smoking Status: Never Smoked Hx Alcohol Use: No Hx Substance Use: No Hx Substance Use Treatment: No Allergies/Home Meds Allergies/Adverse Reactions: Allergies No Known Allergies Allergy (Verified 03/05/18 17:35) Home Medications: Home Meds Medication Instructions Recorded Confirmed RX: metFORMIN [glucOPHAGE] 500 mg PO BID 03/05/18 03/05/18 Review of Systems - Physician Review All systems were reviewed & negative as marked: Yes - Review of Systems Constitutional: Normal Eyes: Normal ENT: Normal Respiratory: Normal Cardiovascular: Normal Gastrointestinal: Normal Genitourinary Male: Normal Musculoskeletal: Normal Skin: Cellulitis (B/L leg) Neurological: Normal Endocrine: Normal Hemo/Lymphatic: Normal Psychiatric: Normal Physical Exam Vital Signs Reviewed: Yes Vital Signs Temp Pulse Resp BP Pulse Ox 03/05/18 12:28 98.2 F 96 H 16 152/78 H 98 Temperature: Afebrile Blood Pressure: Normal Pulse: Regular Respiratory Rate: Normal Appearance: Positive for: Well-Appearing, Non-Toxic, Comfortable Pain Distress: None Mental Status: Positive for: Alert and Oriented X 3 - Systems Exam Head: Present: Atraumatic, Normocephalic Pupils: Present: PERRL Extroacular Muscles: Present: EOMI Conjunctiva: Present: Normal Mouth: Present: Moist Mucous Membranes Neck: Present: Normal Range of Motion Respiratory/Chest: Present: Clear to Auscultation, Good Air Exchange. No: Respiratory Distress, Accessory Muscle Use Cardiovascular: Present: Regular Rate and Rhythm, Normal S1, S2. No: Murmurs Abdomen: No: Tenderness, Distention, Peritoneal Signs Back: Present: Normal Inspection Upper Extremity: Present: Normal Inspection. No: Cyanosis, Edema Lower Extremity: Present: Edema (5+), Normal ROM, Erythema (B/L lower leg), Other (Nondraining wound noted on posterior distal lower legs). No: CALF TENDERNESS, NORMAL PULSES (DEcreased), Carlos Eduardo's Sign, Temperature Abnormalties Neurological: Present: GCS=15, CN II-XII Intact, Speech Normal Skin: Present: Warm, Dry, Normal Color. No: Rashes Psychiatric: Present: Alert, Oriented x 3, Normal Insight, Normal Concentration Medical Decision Making ED Course and Treatment: 03/05/18 16:38 PT in ED for stated history. He as afebrile and in no distress. Labs Blood culture Wound culture CXR Doppler 03/05/18 19:54 Labs was unremarkable CXR NAD EKG NSR @ 97bpm. Doppler US was negative for DVT b/l Blood culture and wound culture pending Zosyn ordered Case was LAMONT Singer and he requested Dr. Maguire consult Case was LAMONT Oliver and he accepted pt to his service. - Lab Interpretations Lab Results: 03/05/18 14:00 03/05/18 14:00 Lab Results 03/05/18 14:00: Sodium 137, Potassium 3.5 L, Chloride 99, Carbon Dioxide 30, Anion Gap 11, BUN 17, Creatinine 0.7 L, Est GFR ( Amer) > 60, Est GFR (Non-Af Amer) > 60, Random Glucose 125 H, Calcium 8.7, Total Bilirubin 1.2, AST 28, ALT 24, Alkaline Phosphatase 104, Total Protein 8.0, Albumin 3.9, Globulin 4.0, Albumin/Globulin Ratio 1.0 L 03/05/18 14:00: PT 16.0 H, INR 1.38, APTT 30.6 03/05/18 14:00: WBC 8.5, RBC 4.30, Hgb 12.3 L, Hct 36.7 L, MCV 85.3, MCH 28.6, MCHC 33.5, RDW 15.3 H, Plt Count 175, MPV 9.0, Gran % 83.0 H, Lymph % (Auto) 9.5 L, Bibb % (Auto) 7.0 H, Eos % (Auto) 0.4 L, Baso % (Auto) 0.1, Gran # 7.03 H, L ymph # (Auto) 0.8 L, Bibb # (Auto) 0.6, Eos # (Auto) 0.0, Baso # (Auto) 0.01 - RAD Interpretation Radiology Orders: 03/05/18 12:37 CHEST PORTABLE [RAD] Stat DUPLEX LOWER EXTRM VEIN BILAT [US] Stat - Medication Orders Current Medication Orders: Piperacillin Sod/Tazobactam Sod (Zosyn 2.25 Gm In 0.9% 100 Ml) 2.25 gm in 100 mls @ 100 mls/hr IVPB STAT STA; Protocol Stop: 03/05/18 15:31 Disposition/Present on Arrival - Present on Arrival Any Indicators Present on Arrival: No History of DVT/PE: No History of Uncontrolled Diabetes: No Urinary Catheter: No History of Decub. Ulcer: No History Surgical Site Infection Following: None - Disposition Have Diagnosis and Disposition been Completed?: Yes Diagnosis: Cellulitis, Lymphedema Disposition: HOSPITALIZED Disposition Time: 14:30 Patient Plan: Admission Patient Problems: Current Active Problems Problem Status Onset Cellulitis Acute Lymphedema Chronic Condition: STABLE
--- NOTE | 2018-03-05 16:03 | US ---
HISTORY: Leg pain and swelling. Evaluate for DVT PHYSICIAN(S): Mookie Zayas MD. TECHNIQUE: Duplex sonography and color-flow Doppler with graded compression were used to evaluate the deep venous systems of both lower extremities. The exam is very limited by body habitus and edema. The popliteal and tibial veins are not well seen FINDINGS: The visualized deep venous systems of both lower extremities are sonographically normal and compressible. Normal wave forms and augmentation are seen. There is no sonographic evidence for deep venous thrombosis in the visualized segments of both lower extremities. IMPRESSION: No sonographic evidence for deep venous thrombosis in the visualized segments of both lower extremities. Very limited study.
[2018-03-05] MEDS: Oxycodone/Acetaminophen 5/325 mg Tab PO PRN (18:49)
[2018-03-05 19:44] VITALS: BMI 44.5
[2018-03-05] MEDS ORDERED: Influenza Vaccine 60 mcg/0.5 mL SYR (4YR UP) IM ONE (19:44)
[2018-03-05] MEDS ORDERED: Pneumococcal 23-Valent Vaccine IM ONE (19:44)
--- NOTE | 2018-03-05 20:28 | CARD ---
APPROVED REPORT Date of service: 03/05/2018 EKG Measurement Heart [id number] <Conclusion> Normal sinus rhythm Normal ECG
[2018-03-06] MEDS: Vancomycin 1gm in NS 250ml 1 GM/250 ML BAG IVPB SCH ×3 (00:37→23:19)
[2018-03-06] MEDS: Oxycodone/Acetaminophen 5/325 mg Tab PO PRN ×3 (03:17→23:20)
[2018-03-06] MEDS: Meropenem IV 1 gm in NS 1 GM/50 ML BAG IVPB SCH ×3 (05:49→21:38)
[2018-03-06] MEDS ORDERED: Potassium Chloride 20 mEq ER Tab PO ONE (09:40)
[2018-03-06] MEDS: Insulin Reg-LOW-Coverage SC SCH ×2 (14:30→22:40)
--- NOTE | 2018-03-06 14:48 | US ---
PROCEDURE: Lower extremity LIZA exam HISTORY: Peripheral vascular disease. PHYSICIAN(S): Mookie Zayas MD. FINDINGS: Due to body habitus, only single level PVR exam was performed. The brachial pressures are symmetric. The resting ABIs are normal: Right, 1.23 and left, 1.73 The ankle and metatarsal waveforms are normal and symmetric IMPRESSION: 1. Limited study due to body habitus. 2. Normal resting LIZA exam
--- NOTE | 2018-03-06 16:31 | CP.PCM.PN ---
<Marcela Romero - Last Filed: 03/06/18 16:25> Subjective - Date & Time of Evaluation Date of Evaluation: 03/06/18 Time of Evaluation: 16:25 - Subjective Subjective: Podiatry Consult Note for Dr. Roman 48 yo male patient, with PMHx of DM and Lymphedema, seen and evaluated for B/L lymphedema and cellulitis. Patient is AAOx3 and in NAD. Denies any acute events overnight. Patient is well known to Dr. Roman in the wound care center and was sent to the ED for LE cellulitis. Patient denies any N/V/F however re ports back pain. Patient denies any new pedal complaints at this time. PMHx: as above ALL: NKDA Objective - Vital Signs/Intake and Output Vital Signs (last 24 hours): Temp Pulse Resp BP Pulse Ox 99 F 90 20 101/59 L 96 03/06/18 06:00 03/06/18 06:00 03/06/18 06:00 03/06/18 06:00 03/06/18 06:00 Intake and Output: 03/06/18 03/06/18 06:59 18:59 Intake Total 300 Balance 300 - Medications Medications: Current Medications Meropenem (Merrem Iv 1 Gm Premix) 1 gm in 50 mls @ 12.5 mls/hr IVPB Q8 ESTEVAN; Protocol Stop: 03/15/18 06:01 Last Admin: 03/06/18 14:30 Dose: 12.5 mls/hr Vancomycin HCl (Vancomycin 1gm) 1 gm in 250 mls @ 167 mls/hr IVPB Q12H ESTEVAN; Protocol Stop: 03/14/18 23:46 Last Admin: 03/06/18 11:58 Dose: 167 mls/hr Insulin Human Regular (Humulin R Low) 0 units SC ACHS ESTEVAN; Protocol Last Admin: 03/06/18 14:30 Dose: Not Given Oxycodone/Acetaminophen (Percocet 5/325 Mg Tab) 1 tab PO Q6H PRN PRN Reason: Pain, moderate (4-7) Stop: 03/08/18 18:43 Last Admin: 03/06/18 09:19 Dose: 1 tab - Labs Labs: 03/05/18 14:00 03/05/18 14:00 PT 16.0 SECONDS (9.4-12.5) H 03/05/18 14:00 INR 1.38 03/05/18 14:00 APTT 30.6 Seconds (25.1-36.5) 03/05/18 14:00 - Constitutional Appears: Well, Non-toxic, No Acute Distress - Head Exam Head Exam: ATRAUMATIC, NORMOCEPHALIC - Extremities Exam Additional comments: Vascular: DP/PT pulses non-palpable secondary to edema, CFT > 3 seconds, TG warm to warm, pedal hair absent, +2 pitting edema to b/l lower extremities Ortho: No tenderness to palpation noted to b/l extremities, no pain upon calf compression Neuro: Gross and protective sensation intact Derm: Superficial ulcerations noted to bilateral lower extremities with significant weeping of serous fluid appreciated. Minimal diffuse erythema noted to b/l lower extremities. No probe to bone, no tunneling, no tracking, no purulence appreciated. Diffused erythema noted to anterior aspect of b/l extremities. - Neurological Exam Neurological Exam: Alert, Awake, Oriented x3 - Psychiatric Exam Psychiatric exam: Normal Affect, Normal Mood Assessment and Plan - Assessment and Plan (Free Text) Assessment: 48 yo male patient, with PMHx of DM and Lymphedema, seen and evaluated for B/L lymphedema and erythema Plan: Patient seen and evaluated with Dr. Singer Afebrile, absent leukocytosis Ammonium lactate ordered and to be applied to B/L lower extremities daily Local wound care to B/L LE: xeroform, ABD, DSD, DARCI Duplex B/L; no evidence of DVT Non-invasive vascular studies; normal resting LIZA Blood cx; no growth to date Continue IV abx per ID reccs Podiatry will continue to follow while in house Thank you for the consult <Charlie Singer - Last Filed: 03/07/18 10:57> Objective - Vital Signs/Intake and Output Vital Signs (last 24 hours): Temp Pulse Resp BP Pulse Ox 97.4 F L 82 20 136/89 97 03/07/18 06:00 03/07/18 06:00 03/07/18 06:00 03/07/18 06:00 03/07/18 06:00 Intake and Output: 03/07/18 03/07/18 06:59 18:59 Intake Total 860 Balance 860 - Medications Medications: Current Medications Meropenem (Merrem Iv 1 Gm Premix) 1 gm in 50 mls @ 12.5 mls/hr IVPB Q8 ESTEVAN; P rotocol Stop: 03/15/18 06:01 Last Admin: 03/07/18 05:39 Dose: 12.5 mls/hr Vancomycin HCl (Vancomycin 1gm) 1 gm in 250 mls @ 167 mls/hr IVPB Q12H ESTEVAN; Protocol Stop: 03/14/18 23:46 Last Admin: 03/06/18 23:19 Dose: 167 mls/hr Insulin Human Regular (Humulin R Low) 0 units SC ACHS ESTEVAN; Protocol Last Admin: 03/07/18 10:43 Dose: Not Given Lactic Acid (Lac-Hydrin 12% Cream (140 G)) 0 ea TOP DAILY ESTEVAN Last Admin: 03/07/18 10:43 Dose: 1 applic Oxycodone/Acetaminophen (Percocet 5/325 Mg Tab) 1 tab PO Q6H PRN PRN Reason: Pain, moderate (4-7) Stop: 03/08/18 18:43 Last Admin: 03/07/18 05:38 Dose: 1 tab - Labs Labs: 03/07/18 07:30 03/07/18 07:30 PT 16.0 SECONDS (9.4-12.5) H 03/05/18 14:00 INR 1.38 03/05/18 14:00 APTT 30.6 Seconds (25.1-36.5) 03/05/18 14:00 Attending/Attestation - Attestation I have personally seen and examined this patient.: Yes I have fully participated in the care of the patient.: Yes I have reviewed all pertinent clinical information, including history, physical exam and plan: Yes
--- NOTE | 2018-03-06 16:55 | HP ---
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 Singer for cellulitis of the legs, right greater than left. The patient was seen in the emergency department and admitted to the medical-surgical floor for further evaluation and management. He has been seen by Infectious Disease, Dr. Maguire and started empirically on meropenem and vancomycin intravenously. The patient denies any pain of the lower extremities. Reports a fever of 101 on the evening prior to admission. He denies any chest pain, shortness of breath, nausea, vomiting or diarrhea. PAST MEDICAL HISTORY: The patient's past medical history includes type 2 diabetes mellitus and chronic lymphedema with recurrent cellulitis of the legs. He denies any history of hypertension or heart disease or cancer. CURRENT MEDICATIONS: Include metformin 500 mg twice daily. ALLERGIES: HE HAS NO KNOWN ALLERGIES. FAMILY HISTORY: Noncontributory. SOCIAL HISTORY: The patient denies any tobacco, alcohol or drug use. He is independent with ADLs and IADLs. REVIEW OF SYSTEMS: Essentially as above. PHYSICAL EXAMINATION: GENERAL: The patient is a well-developed male, in no acute distress. VITAL SIGNS: Blood pressure 101/59; temperature 99, axillary; pulse 90; respiratory rate 20. HEENT: Head is normocephalic, atraumatic. Pupils equal, round, reactive to light. Extraocular movements intact. NECK: Supple with no thyromegaly. No adenopathy. No carotid bruit. LUNGS: Clear. HEART: Regular rate and rhythm. ABDOMEN: Soft, mildly obese, nontender. Bowel sounds are normoactive. EXTREMITIES: Show chronic lymphedema with brawny edema and degenerative skin changes to the knees bilaterally. The patient has some redness and erythema of the right lower extremities with no purulent discharge. There is a mild weeping edema at the right ankle. NEUROLOGICAL: The patient is awake and oriented x3 without focal sensory or motor deficits. SKIN: Warm and dry. LABORATORY DATA: WBC is 8.5, hemoglobin 12.3, hematocrit 36.7. Sodium 137, potassium 3.5, chloride 99, CO2 of 30, BUN 17, creatinine 0.7, glucose 125. C-reactive protein is elevated at 180.1. Venous Doppler and arterial Doppler of the lower extremity showed no evidence of DVT and no evidence of vascular insufficiency of the lower extremities. Chest x-ray shows no active disease. IMPRESSION: 1. Chronic lymphedema with recurrent cellulitis of the lower extremities. 2. Type 2 diabetes mellitus. 3. Mild hypokalemia. PLAN: We will admit to the medical-surgical floor. The patient has been started on IV meropenem and vancomycin as above. Infectious Disease consultation, Dr. Maguire. The patient will be seen by Podiatry, Dr. Singer. He has been started on low-dose regular insulin coverage with fingersticks four times a day. We will monitor electrolytes, potassium supplements. Social Work for discharge planning. BRUCE Light MD JOHN
--- NOTE | 2018-03-07 04:54 | CON ---
DATE: 03/06/2018 The patient seen earlier today in room# 578, bed 2. CHIEF COMPLAINT: Bilateral lower extremity edema and erythema, more so on the right leg. HISTORY OF PRESENT ILLNESS: This is a 48-year-old male with morbid obesity, BMI of 44, chronic lymphedema, diabetes mellitus, history of Klebsiella and Proteus infections, history of depression, history of urinary tract infection, patient has never had any operation, he states, who is admitted now with lower extremity edema and erythema, more so on the right leg than the left. He denies any fevers, any chills. REVIEW OF SYSTEMS: Reveals no nausea, vomiting, or chest pain. No abdominal pain, diarrhea, or constipation. No bright red blood per rectum. A 12-point review of systems is performed. PAST MEDICAL HISTORY: Significant for morbid obesity, BMI of 44, chronic lymphedema, diabetes, Klebsiella, Proteus, urinary tract infection, depression. PAST SURGICAL HISTORY: Noncontributory. ALLERGIES: THE PATIENT HAS NO KNOWN ALLERGIES. MEDICATIONS: Medications at home reveal the patient to be on metformin. PHYSICAL EXAMINATION: VITAL SIGNS: Temperature is 98, blood pressure is 130/80, respiratory rate of 18, heart rate of 97. HEENT: Unremarkable. NECK: Supple. LUNGS: Have decreased breath sounds. HEART: Normal S1, S2. ABDOMEN: Soft and nontender. EXTREMITIES: Examination of the legs reveals bilateral edema and erythema. There is significant erythema of the right leg, and there are chronic changes with dry and scaly skin on both legs and with erythema on the right leg, warm to touch, but no discharge. LABORATORY DATA: Reveals white count is 8.5, hemoglobin of 12, platelets of 175,000. Chemistries reveal BUN of 17, creatinine of 0.7. Microbiology is reviewed. The patient had a chest x-ray, which was reported as negative. Ultrasound of the lower extremities which is negative for DVT. ASSESSMENT AND PLAN: This is a 48-year-old male with diabetes mellitus, morbid obesity, body mass index of 44, chronic lymphedema with 1. Right lower extremity cellulitis. We will treat the patient with vancomycin and meropenem. Follow the patient clinically. Should have ankle brachial index because of diabetes and vascular supply and sed rate and C-reactive protein and must rule out osteomyelitis and should have podiatric involvement and vascular involvement. We will rule out peripheral arterial disease and underlying osteomyelitis. We will order sed rate, C-reactive protein, and we will make further recommendations on vancomycin and meropenem. Tony Maguire MD
[2018-03-07] MEDS: Oxycodone/Acetaminophen 5/325 mg Tab PO PRN ×3 (05:38→22:04)
[2018-03-07] MEDS: Meropenem IV 1 gm in NS 1 GM/50 ML BAG IVPB SCH ×3 (05:39→22:04)
[2018-03-07 07:49] LABS: BASO # 0.02 K/mm3 (0.0-2.0); BASO % 0.3 % (0.0-3.0); EOS # 0.1 (0.0-0.7); EOS % 2.3 % (1.5-5.0); GRAN # 3.69 (1.4-6.5); GRAN % 64.4 % (50.0-68.0); HEMOGLOBIN 10.8 g/dL (14.0-18.0); LYMPH # 1.1 (1.2-3.4); LYMPH % 19.7 % (22.0-35.0); MEAN CELL VOLUME 85.3 fl (80.0-105.0); MEAN CORPUSCULAR HEMOGLOBIN 27.9 pg (25.0-35.0); MEAN CORPUSCULAR HGB CONC 32.7 g/dl (31.0-37.0); MEAN PLATELET VOLUME 8.9 fl (7.0-11.0); MONO # 0.8 (0.1-0.6); MONO % 13.3 % (1.0-6.0); RBC 3.87 10^6/uL (3.5-6.1); RED CELL DISTRIBUTION WIDTH 15.3 % (11.5-14.5); WHITE BLOOD COUNT 5.7 10^3/ul (4.5-11.0)
[2018-03-07 08:12] LABS: ALB/GLOB RATIO 0.9 (1.1-1.8); ALBUMIN 3.1 g/dL (3.0-4.8); ALT/SGPT 34 U/L (7-56); AST/SGOT 26 U/L (17-59); BLOOD UREA NITROGEN 10 mg/dL (7-21); GFR NON-AFRICAN AMERICAN > 60
[2018-03-07] MEDS: Insulin Reg-LOW-Coverage SC SCH ×3 (10:43→22:15)
[2018-03-07] MEDS: Ammonium Lactate 12% Cream (140 g) TOP SCH (10:43)
[2018-03-07] MEDS: Vancomycin 1gm in NS 250ml 1 GM/250 ML BAG IVPB SCH ×2 (12:45→22:45)
--- NOTE | 2018-03-07 13:06 | CP.PCM.PN ---
Subjective - Date & Time of Evaluation Date of Evaluation: 03/07/18 Time of Evaluation: 09:30 - Subjective Subjective: resting comfortably, NAD Objective - Vital Signs/Intake and Output Vital Signs (last 24 hours): Temp Pulse Resp BP Pulse Ox 97.4 F L 82 20 136/89 97 03/07/18 06:00 03/07/18 06:00 03/07/18 06:00 03/07/18 06:00 03/07/18 06:00 Intake and Output: 03/07/18 03/07/18 06:59 18:59 Intake Total 860 Balance 860 - Medications Medications: Current Medications Meropenem (Merrem Iv 1 Gm Premix) 1 gm in 50 mls @ 12.5 mls/hr IVPB Q8 ESTEVAN; Protocol Stop: 03/15/18 06:01 Last Admin: 03/07/18 05:39 Dose: 12.5 mls/hr Vancomycin HCl (Vancomycin 1gm) 1 gm in 250 mls @ 167 mls/hr IVPB Q12H ESTEVAN; Protocol Stop: 03/14/18 23:46 Last Admin: 03/07/18 12:45 Dose: 167 mls/hr Insulin Human Regular (Humulin R Low) 0 units SC ACHS ESTEVAN; Protocol Last Admin: 03/07/18 10:43 Dose: Not Given Lactic Acid (Lac-Hydrin 12% Cream (140 G)) 0 ea TOP DAILY ESTEVAN Last Admin: 03/07/18 10:43 Dose: 1 applic Oxycodone/Acetaminophen (Percocet 5/325 Mg Tab) 1 tab PO Q6H PRN PRN Reason: Pain, moderate (4-7) Stop: 03/08/18 18:43 Last Admin: 03/07/18 13:02 Dose: 1 tab Potassium Chloride (K-Dur 20 Meq Er Tab) 20 meq PO BRK ESTEVAN - Labs Labs: 03/07/18 07:30 03/07/18 07:30 PT 16.0 SECONDS (9.4-12.5) H 03/05/18 14:00 INR 1.38 03/05/18 14:00 APTT 30.6 Seconds (25.1-36.5) 03/05/18 14:00 - Respiratory Exam Respiratory Exam: Clear to Ausculation Bilateral, NORMAL BREATHING PATTERN - Cardiovascular Exam Cardiovascular Exam: REGULAR RHYTHM - GI/Abdominal Exam GI & Abdominal Exam: Soft, Normal Bowel Sounds - Extremities Exam Extremities Exam: Pedal Edema - Neurological Exam Neurological Exam: Alert, Awake - Skin Skin Exam: Dry, Warm Assessment and Plan (1) Lymphedema Status: Chronic (2) Cellulitis, leg Status: Acute - Assessment and Plan (Free Text) Plan: continue IV Abx, wound care
--- NOTE | 2018-03-07 15:01 | CP.PCM.PN ---
<Marcela Romero - Last Filed: 03/07/18 15:01> Subjective - Date & Time of Evaluation Date of Evaluation: 03/07/18 Time of Evaluation: 14:39 - Subjective Subjective: Podiatry Progress Note for Dr. Singer 48 yo male patient seen and evaluated for B/L lymphedema and cellulitis. Patient is resting comfortably bedside and in NAD. Patient denies any new pedal complaints. Denies N/V/F. Objective - Vital Signs/Intake and Output Vital Signs (last 24 hours): Temp Pulse Resp BP Pulse Ox 97.4 F L 82 20 136/89 97 03/07/18 06:00 03/07/18 06:00 03/07/18 06:00 03/07/18 06:00 03/07/18 06:00 Intake and Output: 03/07/18 03/07/18 06:59 18:59 Intake Total 860 Balance 860 - Medications Medications: Current Medications Meropenem (Merrem Iv 1 Gm Premix) 1 gm in 50 mls @ 12.5 mls/hr IVPB Q8 [facility]; Protocol Stop: 03/15/18 06:01 Last Admin: 03/07/18 05:39 Dose: 12.5 mls/hr Vancomycin HCl (Vancomycin 1gm) 1 gm in 250 mls @ 167 mls/hr IVPB Q12H [facility]; Protocol Stop: 03/14/18 23:46 Last Admin: 03/07/18 12:45 Dose: 167 mls/hr Insulin Human Regular (Humulin R Low) 0 units SC ACHS [facility]; Protocol Last Admin: 03/07/18 10:43 Dose: Not Given Lactic Acid (Lac-Hydrin 12% Cream (140 G)) 0 ea TOP DAILY [facility] Last Admin: 03/07/18 10:43 Dose: 1 applic Oxycodone/Acetaminophen (Percocet 5/325 Mg Tab) 1 tab PO Q6H PRN PRN Reason: Pain, moderate (4-7) Stop: 03/08/18 18:43 Last Admin: 03/07/18 13:02 Dose: 1 tab Potassium Chloride (K-Dur 20 Meq Er Tab) 20 meq PO BRK ESTEVAN - Labs Labs: 03/07/18 07:30 03/07/18 07:30 PT 16.0 SECONDS (9.4-12.5) H 03/05/18 14:00 INR 1.38 03/05/18 14:00 APTT 30.6 Seconds (25.1-36.5) 03/05/18 14:00 - Constitutional Appears: Well, Non-toxic, No Acute Distress - Extremities Exam Additional comments: Vascular: DP/PT pulses non-palpable secondary to edema, CFT > 3 seconds, TG warm to warm, pedal hair absent, +2 pitting edema secondary to lymphadema to b/l lower extremities Ortho: No tenderness to palpation noted to b/l extremities, no pain upon calf compression Neuro: Gross and protective sensation intact Derm: Superficial ulcerations noted to bilateral lower extremities on the posterior aspect b/l with significant weeping of serous fluid appreciated. Minimal diffuse erythema noted to b/l lower extremities, resolving. No probe to bone, no tunneling, no tracking, no purulence appreciated. Diffused erythema noted to anterior aspect of b/l extremities. Assessment and Plan - Assessment and Plan (Free Text) Assessment: 48 yo male patient seen and evaluated for B/L lymphedema and erythema Plan: Patient seen and evaluated with Dr. Singer Local wound care to B/L LE: xeroform, ABD, DSD, DARCI Duplex B/L; no evidence of DVT Non-invasive vascular studies; normal resting LIZA Continue IV abx per ID reccs Podiatry will continue to follow while in house, pending d/c patient to follow up in wound care center <Charlie Singer - Last Filed: 03/08/18 08:23> Objective - Vital Signs/Intake and Output Vital Signs (last 24 hours): Temp Pulse Resp BP Pulse Ox 98 F 86 18 152/85 H 100 03/07/18 22:26 03/07/18 22:26 03/07/18 22:26 03/07/18 22:26 03/07/18 22:26 - Medications Medications: Current Medications Meropenem (Merrem Iv 1 Gm Premix) 1 gm in 50 mls @ 12.5 mls/hr IVPB Q8 ESTEVAN; Protocol Stop: 03/15/18 06:01 Last Admin: 03/08/18 05:20 Dose: 12.5 mls/hr Vancomycin HCl (Vancomycin 1gm) 1 gm in 250 mls @ 167 mls/hr IVPB Q12H EST[facility]AN; Protocol Stop: 03/14/18 23:46 Last Admin: 03/07/18 22:45 Dose: 167 mls/hr Insulin Human Regular (Humulin R Low) 0 units SC ACHS ESTEVAN; Protocol Last Admin: 03/07/18 22:15 Dose: Not Given Lactic Acid (Lac-Hydrin 12% Cream (140 G)) 0 ea TOP DAILY [facility]AN Last Admin: 03/07/18 10:43 Dose: 1 applic Oxycodone/Acetaminophen (Percocet 5/325 Mg Tab) 1 tab PO Q6H PRN PRN Reason: Pain, moderate (4-7) Stop: 03/08/18 18:43 Last Admin: 03/07/18 22:04 Dose: 1 tab Potassium Chloride (K-Dur 20 Meq Er Tab) 20 meq PO BRK [facility] Last Admin: 03/07/18 16:06 Dose: Not Given - Labs Labs: 03/07/18 07:30 03/07/18 07:30 PT 16.0 SECONDS (9.4-12.5) H 03/05/18 14:00 INR 1.38 03/05/18 14:00 APTT 30.6 Seconds (25.1-36.5) 03/05/18 14:00 Attending/Attestation - Attestation I have personally seen and examined this patient.: Yes I have fully participated in the care of the patient.: Yes I have reviewed all pertinent clinical information, including history, physical exam and plan: Yes
[2018-03-07] MEDS: Potassium Chloride 20 mEq ER Tab PO SCH ×2 (15:19→16:06)
[2018-03-07] MEDS ORDERED: Potassium Chloride 20 mEq/15 ml LIQ UD PO ONE (16:00)
[2018-03-07] MEDS ORDERED: Gadodiamide 287 MG/ML VIAL (15ML) IV ONE (21:12)
--- NOTE | 2018-03-08 04:57 | PN ---
DATE: 03/07/2018 SUBJECTIVE: The patient is in bed, no acute distress. PHYSICAL EXAMINATION: VITAL SIGNS: On exam, temperature is 98, blood pressure is 158/80, respiratory rate of 18, heart rate of 86. HEENT: Examination of HEENT is unremarkable. NECK: Supple. LUNGS: Have decreased breath sounds. HEART: Normal S1, S2. ABDOMEN: Soft. LABORATORY DATA: Laboratory examination reveals a white count of 5.7, hemoglobin of 10, platelets of 172. Chemistries reveals a BUN of 10, creatinine 0.6. Microbiology reveals the blood cultures are negative and review of orders reveals the patient to be on vancomycin and meropenem. ASSESSMENT AND PLAN: A 48-year-old male with diabetes mellitus, morbid obesity, body mass index of 44, chronic lymphedema, right lower lobe extremity cellulitis, on vancomycin and meropenem and the patient's ankle MRI is pending. Vasculitis workup and final culture results. We will follow with you. Tony Maguire MD
[2018-03-08] MEDS: Meropenem IV 1 gm in NS 1 GM/50 ML BAG IVPB SCH ×3 (05:20→21:00)
[2018-03-08] MEDS: Insulin Reg-LOW-Coverage SC SCH ×4 (07:38→21:24)
--- NOTE | 2018-03-08 09:28 | CP.PCM.PN ---
<Tasha Alvarenga - Last Filed: 03/08/18 09:25> Subjective - Date & Time of Evaluation Date of Evaluation: 03/08/18 Time of Evaluation: 09:25 - Subjective Subjective: Podiatry Progress Note for Dr. Singer 48 yo male patient seen and evaluated for B/L lymphedema and cellulitis. Patient is resting comfortably bedside and in NAD. Patient denies any new pedal complaints. Admits to minimal soreness in both legs, however states the pain and redness have decreased. Denies N/V/F. Objective - Vital Signs/Intake and Output Vital Signs (last 24 hours): Temp Pulse Resp BP Pulse Ox 98 F 86 18 152/85 H 100 03/07/18 22:26 03/07/18 22:26 03/07/18 22:26 03/07/18 22:26 03/07/18 22:26 - Medications Medications: Current Medications Meropenem (Merrem Iv 1 Gm Premix) 1 gm in 50 mls @ 12.5 mls/hr IVPB Q8 ESTEVAN; Protocol Stop: 03/15/18 06:01 Last Admin: 03/08/18 05:20 Dose: 12.5 mls/hr Vancomycin HCl (Vancomycin 1gm) 1 gm in 250 mls @ 167 mls/hr IVPB Q12H [facility]AN; Protocol Stop: 03/14/18 23:46 Last Admin: 03/07/18 22:45 Dose: 167 mls/hr Insulin Human Regular (Humulin R Low) 0 units SC ACHS ESTEVAN; Protocol Last Admin: 03/07/18 22:15 Dose: Not Given Lactic Acid (Lac-Hydrin 12% Cream (140 G)) 0 ea TOP DAILY [facility] Last Admin: 03/07/18 10:43 Dose: 1 applic Oxycodone/Acetaminophen (Percocet 5/325 Mg Tab) 1 tab PO Q6H PRN PRN Reason: Pain, moderate (4-7) Stop: 03/08/18 18:43 Last Admin: 03/07/18 22:04 Dose: 1 tab Potassium Chloride (K-Dur 20 Meq Er Tab) 20 meq PO BRK [facility] Last Admin: 03/07/18 16:06 Dose: Not Given - Labs Labs: 03/07/18 07:30 03/07/18 07:30 PT 16.0 SECONDS (9.4-12.5) H 03/05/18 14:00 INR 1.38 03/05/18 14:00 APTT 30.6 Seconds (25.1-36.5) 03/05/18 14:00 - Constitutional Appears: Well, Non-toxic, No Acute Distress - Head Exam Head Exam: ATRAUMATIC, NORMOCEPHALIC - Extremities Exam Additional comments: Vascular: DP/PT pulses non-palpable secondary to edema, CFT > 3 seconds, TG warm to warm, pedal hair absent, +2 pitting edema secondary to lymphedema to b/l lower extremities Ortho: No tenderness to palpation noted to b/l extremities, no pain upon calf compression Neuro: Gross and protective sensation intact Derm: Superficial ulcerations noted to bilateral lower extremities on the posterior aspect b/l with significant weeping of serous fluid appreciated. Minimal diffuse erythema noted to b/l lower extremities, resolving. No probe to bone, no tunneling, no tracking, no purulence appreciated. Diffused erythema noted to anterior aspect of b/l extremities - Neurological Exam Neurological Exam: Alert, Oriented x3 - Psychiatric Exam Psychiatric exam: Normal Affect - Skin Skin Exam: Normal Color Assessment and Plan - Assessment and Plan (Free Text) Assessment: 48 yo male patient seen and evaluated for B/L lymphedema and erythema Plan: Patient seen and evaluated with Dr. Singer Local wound care to B/L LE: xeroform, ABD, DSD, DARCI Duplex B/L; no evidence of DVT Non-invasive vascular studies; normal resting LIZA Continue IV abx per ID reccs Plan: Patient stable for discharge from podiatry point of view Podiatry will continue to follow while in house, pending d/c patient to follow up in wound care center <Charlie Singer - Last Filed: 03/08/18 09:50> Objective - Vital Signs/Intake and Output Vital Signs (last 24 hours): Temp Pulse Resp BP Pulse Ox 98 F 86 18 152/85 H 100 03/07/18 22:26 03/07/18 22:26 03/07/18 22:26 03/07/18 22:26 03/07/18 22:26 - Medications Medications: Current Medications Meropenem (Merrem Iv 1 Gm Premix) 1 gm in 50 mls @ 12.5 mls/hr IVPB Q8 ESTEVAN; Protocol Stop: 10/25/18 06:01 Last Admin: 03/08/18 05:20 Dose: 12.5 mls/hr Vancomycin HCl (Vancomycin 1gm) 1 gm in 250 mls @ 167 mls/hr IVPB Q12H ESTEVAN; Protocol Stop: 03/14/18 23:46 Last Admin: 03/07/18 22:45 Dose: 167 mls/hr Insulin Human Regular (Humulin R Low) 0 units SC ACHS ESTEVAN; Protocol Last Admin: 03/07/18 22:15 Dose: Not Given Lactic Acid (Lac-Hydrin 12% Cream (140 G)) 0 ea TOP DAILY ESTEVAN Last Admin: 03/07/18 10:43 Dose: 1 applic Oxycodone/Acetaminophen (Percocet 5/325 Mg Tab) 1 tab PO Q6H PRN PRN Reason: Pain, moderate (4-7) Stop: 03/08/18 18:43 Last Admin: 03/07/18 22:04 Dose: 1 tab Potassium Chloride (K-Dur 20 Meq Er Tab) 20 meq PO BRK [facility] Last Admin: 03/07/18 16:06 Dose: Not Given - Labs Labs: 03/07/18 07:30 03/07/18 07:30 PT 16.0 SECONDS (9.4-12.5) H 03/05/18 14:00 INR 1.38 03/05/18 14:00 APTT 30.6 Seconds (25.1-36.5) 03/05/18 14:00 Attending/Attestation - Attestation I have personally seen and examined this patient.: Yes I have fully participated in the care of the patient.: Yes I have reviewed all pertinent clinical information, including history, physical exam and plan: Yes
[2018-03-08] MEDS ORDERED: Gadodiamide 287 MG/ML VIAL (20ML) IV ONE (10:37)
[2018-03-08] MEDS: Potassium Chloride 20 mEq ER Tab PO SCH (11:15)
[2018-03-08] MEDS: Ammonium Lactate 12% Cream (140 g) TOP SCH (11:16)
[2018-03-08] MEDS: Vancomycin 1gm in NS 250ml 1 GM/250 ML BAG IVPB SCH ×2 (11:16→22:17)
[2018-03-08] MEDS: Oxycodone/Acetaminophen 5/325 mg Tab PO PRN (11:27)
--- NOTE | 2018-03-08 11:35 | MRI ---
Date of service: 03/07/2018 PROCEDURE: MRI of the right ankle with and without contrast HISTORY: r/o osteomyolitis COMPARISON: TECHNIQUE: MRI of the right ankle was performed in multiple planes using multiple pulse sequences including postcontrast imaging. 15 cc of Omniscan were injected FINDINGS: There is a focal skin defect or ulcer posteriorly which extends to the Achilles tendon. There is no tendon abnormality. There is no evidence of abscess. There is a large amount of subcutaneous edema. There is no marrow edema or enhancement to suggest osteomyelitis. IMPRESSION: No evidence of osteomyelitis
--- NOTE | 2018-03-08 11:38 | MRI ---
Date of service: 03/08/2018 PROCEDURE: MRI of the left ankle with and without contrast HISTORY: OM COMPARISON: TECHNIQUE: MRI of the left ankle was performed with and without IV contrast. 15 cc of Omniscan were injected. FINDINGS: There is a large amount of subcutaneous edema. There is no evidence of bone marrow edema or enhancement to suggest osteomyelitis. There is no evidence of abscess. IMPRESSION: No evidence of osteomyelitis
--- NOTE | 2018-03-08 14:02 | CP.PCM.PN ---
Subjective - Date & Time of Evaluation Date of Evaluation: 03/08/18 Time of Evaluation: 10:00 - Subjective Subjective: resting comfortably, NAD, denies chest pain, no SOB Objective - Vital Signs/Intake and Output Vital Signs (last 24 hours): Temp Pulse Resp BP Pulse Ox 97.5 F L 79 20 88/51 L 96 03/08/18 06:00 03/08/18 06:00 03/08/18 06:00 03/08/18 06:00 03/08/18 06:00 - Medications Medications: Current Medications Meropenem (Merrem Iv 1 Gm Premix) 1 gm in 50 mls @ 12.5 mls/hr IVPB Q8 ESTEVAN; Protocol Stop: 03/15/18 06:01 Last Admin: 03/08/18 05:20 Dose: 12.5 mls/hr Vancomycin HCl (Vancomycin 1gm) 1 gm in 250 mls @ 167 mls/hr IVPB Q12H [facility]AN; Protocol Stop: 03/14/18 23:46 Last Admin: 03/08/18 11:16 Dose: 167 mls/hr Insulin Human Regular (Humulin R Low) 0 units SC ACHS ESTEVAN; Protocol Last Admin: 03/08/18 12:35 Dose: Not Given Lactic Acid (Lac-Hydrin 12% Cream (140 G)) 0 ea TOP DAILY [facility]AN Last Admin: 03/08/18 11:16 Dose: 1 applic Oxycodone/Acetaminophen (Percocet 5/325 Mg Tab) 1 tab PO Q6H PRN PRN Reason: Pain, moderate (4-7) Stop: 03/08/18 18:43 Last Admin: 03/08/18 11:27 Dose: 1 tab Potassium Chloride (K-Dur 20 Meq Er Tab) 20 meq PO BRK [facility] Last Admin: 03/08/18 11:15 Dose: 20 meq - Labs Labs: 03/07/18 07:30 03/07/18 07:30 PT 16.0 SECONDS (9.4-12.5) H 03/05/18 14:00 INR 1.38 03/05/18 14:00 APTT 30.6 Seconds (25.1-36.5) 03/05/18 14:00 - Respiratory Exam Respiratory Exam: Clear to Ausculation Bilateral, NORMAL BREATHING PATTERN - Cardiovascular Exam Cardiovascular Exam: REGULAR RHYTHM - GI/Abdominal Exam GI & Abdominal Exam: Soft, Normal Bowel Sounds - Extremities Exam Extremities Exam: Pedal Edema - Neurological Exam Neurological Exam: Alert, Awake - Skin Skin Exam: Dry, Warm Assessment and Plan (1) Lymphedema Status: Chronic (2) Cellulitis, leg Status: Acute - Assessment and Plan (Free Text) Plan: continue IV Abx, meropenem/vanco, ID and podiatry follow-up, SW for DC planning
--- NOTE | 2018-03-08 23:19 | PN ---
DATE: 03/08/2018 SUBJECTIVE: The patient is in bed. The patient is seen in 578, bed 2. No fevers, no chills. He is doing better. PHYSICAL EXAMINATION: VITAL SIGNS: On exam, temperature is 98, blood pressure is 115/70, respiratory rate 16. HEENT: Examination of HEENT is unremarkable. NECK: Supple. LUNGS: Have decreased breath sounds. HEART: Normal S1, S2. ABDOMEN: Soft, nontender. EXTREMITIES: Examination of leg, remain improved. Right leg is less erythematous. LABORATORY DATA: Laboratory examination reveals a white count of 5.7, hemoglobin of 10, platelets of 172. Coagulation is noted and chemistries noted. Microbiology reveals the blood cultures are negative. Review of orders reveals the patient is on vancomycin and last creatinine was 0.6 which was yesterday. The patient had ankle MRI. There is no evidence of osteomyelitis. ASSESSMENT AND PLAN: A 48-year-old male with morbid obesity, body mass index of 44 and chronic lymphedema, right lower extremity cellulitis, on vancomycin. MRI is negative for osteomyelitis and the patient is also on meropenem. Dr. Yogi Oliver's note is reviewed. We will follow with you. Tony Maguire MD
[2018-03-09] MEDS ORDERED: Oxycodone/Acetaminophen 5/325 mg Tab PO STA (05:47)
[2018-03-09] MEDS: Vancomycin 1gm in NS 250ml 1 GM/250 ML BAG IVPB SCH ×3 (05:56→23:01)
[2018-03-09] MEDS: Meropenem IV 1 gm in NS 1 GM/50 ML BAG IVPB SCH ×3 (05:56→21:17)
[2018-03-09] MEDS: Insulin Reg-LOW-Coverage SC SCH ×4 (07:38→21:15)
[2018-03-09 08:33] VITALS: RESP 20
[2018-03-09] MEDS: Potassium Chloride 20 mEq ER Tab PO SCH (10:22)
[2018-03-09] MEDS: Ammonium Lactate 12% Cream (140 g) TOP SCH (10:23)
[2018-03-09] MEDS ORDERED: Oxycodone/Acetaminophen 5/325 mg Tab PO PRN (10:52)
--- NOTE | 2018-03-09 10:53 | CP.PCM.PN ---
Subjective - Date & Time of Evaluation Date of Evaluation: 03/09/18 Time of Evaluation: 10:30 - Subjective Subjective: OOB in chair, NAD Objective - Vital Signs/Intake and Output Vital Signs (last 24 hours): Temp Pulse Resp BP Pulse Ox 97.6 F 78 20 106/62 96 03/09/18 06:00 03/09/18 06:00 03/09/18 06:00 03/09/18 06:00 03/09/18 06:00 Intake and Output: 03/09/18 03/09/18 06:59 18:59 Intake Total 980 Balance 980 - Medications Medications: Current Medications Meropenem (Merrem Iv 1 Gm Premix) 1 gm in 50 mls @ 12.5 mls/hr IVPB Q8 ESTEVAN; Protocol Stop: 03/15/18 06:01 Last Admin: 03/09/18 05:56 Dose: 12.5 mls/hr Vancomycin HCl (Vancomycin 1gm) 1 gm in 250 mls @ 167 mls/hr IVPB Q12H ESTEVAN; Protocol Stop: 03/14/18 23:46 Last Admin: 03/09/18 05:56 Dose: Not Given Insulin Human Regular (Humulin R Low) 0 units SC ACHS ESTEVAN; Protocol Last Admin: 03/09/18 07:38 Dose: Not Given Lactic Acid (Lac-Hydrin 12% Cream (140 G)) 0 ea TOP DAILY EST[facility]AN Last Admin: 03/09/18 10:23 Dose: 1 applic Potassium Chloride (K-Dur 20 Meq Er Tab) 20 meq PO BRK [facility] Last Admin: 03/09/18 10:22 Dose: 20 meq - Labs Labs: 03/07/18 07:30 03/07/18 07:30 PT 16.0 SECONDS (9.4-12.5) H 03/05/18 14:00 INR 1.38 03/05/18 14:00 APTT 30.6 Seconds (25.1-36.5) 03/05/18 14:00 Assessment and Plan (1) Lymphedema Status: Chronic (2) Cellulitis, leg Status: Acute
--- NOTE | 2018-03-09 19:53 | CP.PCM.PN ---
<Tasha Alvarenga - Last Filed: 03/09/18 19:50> Subjective - Date & Time of Evaluation Date of Evaluation: 03/09/18 Time of Evaluation: 19:50 - Subjective Subjective: Podiatry Progress Note for Dr. Singer 48 yo male patient seen and evaluated for B/L lymphedema and cellulitis. Patient is resting comfortably bedside and in NAD. Patient denies any new pedal complaints. Admits to minimal soreness in both legs, however states the pain and redness have decreased. Denies N/V/F. Objective - Vital Signs/Intake and Output Vital Signs (last 24 hours): Temp Pulse Resp BP Pulse Ox 97.6 F 78 20 106/62 96 03/09/18 06:00 03/09/18 06:00 03/09/18 06:00 03/09/18 06:00 03/09/18 06:00 - Medications Medications: Current Medications Meropenem (Merrem Iv 1 Gm Premix) 1 gm in 50 mls @ 12.5 mls/hr IVPB Q8 ESTEVAN; Protocol Stop: 03/15/18 06:01 Last Admin: 03/09/18 14:54 Dose: 12.5 mls/hr Vancomycin HCl (Vancomycin 1gm) 1 gm in 250 mls @ 167 mls/hr IVPB Q12H ESTEVAN; Protocol Stop: 03/14/18 23:46 Last Admin: 03/09/18 14:54 Dose: 167 mls/hr Insulin Human Regular (Humulin R Low) 0 units SC ACHS ESTEVAN; Protocol Last Admin: 03/09/18 17:15 Dose: Not Given Lactic Acid (Lac-Hydrin 12% Cream (140 G)) 0 ea TOP DAILY [facility]AN Last Admin: 03/09/18 10:23 Dose: 1 applic Oxycodone/Acetaminophen (Percocet 5/325 Mg Tab) 1 tab PO Q6H PRN PRN Reason: Pain, moderate (4-7) Stop: 03/12/18 10:53 Potassium Chloride (K-Dur 20 Meq Er Tab) 20 meq PO BRK [facility] Last Admin: 03/09/18 10:22 Dose: 20 meq - Labs Labs: 03/07/18 07:30 03/07/18 07:30 PT 16.0 SECONDS (9.4-12.5) H 03/05/18 14:00 INR 1.38 03/05/18 14:00 APTT 30.6 Seconds (25.1-36.5) 03/05/18 14:00 - Constitutional Appears: Well, Non-toxic, No Acute Distress - Head Exam Head Exam: ATRAUMATIC, NORMOCEPHALIC - Extremities Exam Additional comments: Vascular: DP/PT pulses non-palpable secondary to edema, CFT > 3 seconds, TG warm to warm, pedal hair absent, +2 pitting edema secondary to lymphedema to b/l lower extremities Ortho: No tenderness to palpation noted to b/l extremities, no pain upon calf compression Neuro: Gross and protective sensation intact Derm: Superficial ulcerations noted to bilateral lower extremities on the posterior aspect b/l with significant weeping of serous fluid appreciated. Minimal diffuse erythema noted to b/l lower extremities, resolving. No probe to bone, no tunneling, no tracking, no purulence appreciated. Diffused erythema noted to anterior aspect of b/l extremities; resolving - Neurological Exam Neurological Exam: Alert, Awake, Oriented x3 - Psychiatric Exam Psychiatric exam: Normal Affect, Normal Mood - Skin Skin Exam: Normal Color Assessment and Plan - Assessment and Plan (Free Text) Assessment: 48 yo male patient seen and evaluated for B/L lymphedema and erythema Plan: Patient seen and evaluated with Dr. Singer Local wound care to B/L LE: xeroform, ABD, DSD, DARCI Duplex B/L; no evidence of DVT Non-invasive vascular studies; normal resting LIZA Continue IV abx per ID reccs Plan: Patient stable for discharge from podiatry point of view Podiatry will continue to follow while in house, pending d/c patient to follow up in wound care center <Charlie Singer - Last Filed: 03/10/18 09:26> Objective - Vital Signs/Intake and Output Vital Signs (last 24 hours): Temp Pulse Resp BP Pulse Ox 98.2 F 86 20 102/65 95 03/10/18 08:25 03/10/18 08:25 03/10/18 08:25 03/10/18 08:25 03/10/18 08:25 - Medications Medications: Current Medications Meropenem (Merrem Iv 1 Gm Premix) 1 gm in 50 mls @ 12.5 mls/hr IVPB Q8 ESTEVAN; Protocol Stop: 03/15/18 06:01 Last Admin: 03/10/18 06:33 Dose: 12.5 mls/hr Vancomycin HCl (Vancomycin 1gm) 1 gm in 250 mls @ 167 mls/hr IVPB Q12H [facility]AN; Protocol Stop: 03/14/18 23:46 Last Admin: 03/09/18 23:01 Dose: 167 mls/hr Insulin Human Regular (Humulin R Low) 0 units SC ACHS ESTEVAN; Protocol Last Admin: 03/09/18 21:15 Dose: Not Given Lactic Acid (Lac-Hydrin 12% Cream (140 G)) 0 ea TOP DAILY [facility] Last Admin: 03/09/18 10:23 Dose: 1 applic Oxycodone/Acetaminophen (Percocet 5/325 Mg Tab) 1 tab PO Q6H PRN PRN Reason: Pain, moderate (4-7) Stop: 03/12/18 10:53 Potassium Chloride (K-Dur 20 Meq Er Tab) 20 meq PO BRK [facility] Last Admin: 03/09/18 10:22 Dose: 20 meq - Labs Labs: 03/07/18 07:30 03/07/18 07:30 PT 16.0 SECONDS (9.4-12.5) H 03/05/18 14:00 INR 1.38 03/05/18 14:00 APTT 30.6 Seconds (25.1-36.5) 03/05/18 14:00 Attending/Attestation - Attestation I have personally seen and examined this patient.: Yes I have fully participated in the care of the patient.: Yes I have reviewed all pertinent clinical information, including history, physical exam and plan: Yes
--- NOTE | 2018-03-09 23:42 | PN ---
DATE: 03/09/2018 SUBJECTIVE: Patient is in bed, in no acute distress. Nontoxic. PHYSICAL EXAMINATION: VITAL SIGNS: Temperature is 98, blood pressure is 106/60, respiratory rate of 20. HEENT: Unremarkable. NECK: Supple. LUNGS: Have decreased breath sounds. HEART: Normal S1 and S2. ABDOMEN: Soft and nontender. LABORATORY EXAMINATION: Reveals a white count of 5.7, hemoglobin of 10, platelets of 172. Sed rate of 86 and chemistries are noted. BUN of 10, creatinine of 0.6. Microbiology reveals the blood cultures are negative and ankle MRI reveals no evidence of osteomyelitis and another ankle MRI, also no evidence of osteomyelitis. ASSESSMENT AND PLAN: We will complete a short course of antibiotics. We will follow with you. The legs are greatly improved. Tony Maguire MD
[2018-03-10] MEDS: Meropenem IV 1 gm in NS 1 GM/50 ML BAG IVPB SCH (06:33)
[2018-03-10 08:26] VITALS: BP 102/65; PULSE 86; TEMP 98.2; O2SAT 95
--- NOTE | 2018-03-10 11:54 | CP.PCM.PN ---
<Kvng Patterson - Last Filed: 03/10/18 11:47> Subjective - Date & Time of Evaluation Date of Evaluation: 03/10/18 Time of Evaluation: 10:00 - Subjective Subjective: Podiatry Progress Note for Dr. Singer 48 yo male patient seen and evaluated for B/L lymphedema, Superficial ulcerations and cellulitis. Patient is resting comfortably bedside and in NAD. Patient was waiting for transportation as he is going to be discharged today. Patient denies any new pedal complaints. Patient states the pain and redness have decreased a lot. Patient denies any overnight C/N/V/F or SOB. Objective - Vital Signs/Intake and Output Vital Signs (last 24 hours): Temp Pulse Resp BP Pulse Ox 98.2 F 86 20 102/65 95 03/10/18 08:25 03/10/18 08:25 03/10/18 08:25 03/10/18 08:25 03/10/18 08:25 - Labs Labs: 03/07/18 07:30 03/07/18 07:30 PT 16.0 SECONDS (9.4-12.5) H 03/05/18 14:00 INR 1.38 03/05/18 14:00 APTT 30.6 Seconds (25.1-36.5) 03/05/18 14:00 - Constitutional Appears: Well, Non-toxic, No Acute Distress - Head Exam Head Exam: ATRAUMATIC, NORMOCEPHALIC - Extremities Exam Additional comments: B/L lE focused exam: Vascular: DP/PT pulses non-palpable secondary to edema, Cap refill > 3 seconds, Temp gradient warm to cool from proximal to distal, pedal hair absent, +2 pitting edema secondary to lymphedema to b/l lower extremities Neuro: Gross and protective sensation intact Derm: Superficial ulcerations noted to bilateral lower extremities on the poste rior aspect b/l with moderate weeping of serous fluid appreciated. Minimal diffuse erythema noted to b/l lower extremities, resolving. No probe to bone, no tunneling, no tracking, no purulence appreciated. Diffused erythema noted to anterior aspect of b/l extremities; resolving MSK: No pain to palpation noted to b/l extremities, no pain upon calf compression. MMT intact 5/5 in all groups - Neurological Exam Neurological Exam: Alert, Awake, Oriented x3 - Psychiatric Exam Psychiatric exam: Normal Affect, Normal Mood Assessment and Plan - Assessment and Plan (Free Text) Assessment: 48 yo male patient seen and evaluated for B/L lymphedema, erythema and superficial ulcerations Plan: Patient seen and evaluated with Dr. Singer Plan discussed with attending Dr. Singer Charts, Labs and vitals reviewed; Afebrile, no leukocytosis Local wound care to B/L LE: xeroform, ABD, DSD, DARCI Duplex B/L; no evidence of DVT Non-invasive vascular studies; normal resting LIZA L Ankle MRI: No evidence of Osteomyelitis Continue IV abx per ID reccs Plan: Patient stable from podiatry point of view Patient is for discharge today. Podiatry will continue to follow while in house, patient to follow up in wound care center Upon discharge <Charlie Singer - Last Filed: 03/13/18 17:08> Objective - Vital Signs/Intake and Output Vital Signs (last 24 hours): Temp Pulse Resp BP Pulse Ox 98.2 F 86 20 102/65 95 03/10/18 08:25 03/10/18 08:25 03/10/18 08:25 03/10/18 08:25 03/10/18 08:25 - Labs Labs: 03/07/18 07:30 03/07/18 07:30 PT 16.0 SECONDS (9.4-12.5) H 03/05/18 14:00 INR 1.38 03/05/18 14:00 APTT 30.6 Seconds (25.1-36.5) 03/05/18 14:00 Attending/Attestation - Attestation I have personally seen and examined this patient.: Yes I have fully participated in the care of the patient.: Yes I have reviewed all pertinent clinical information, including history, physical exam and plan: Yes
--- NOTE | 2018-03-10 16:45 | PN ---
DATE: 03/10/2018 SUBJECTIVE: The patient is in bed, in no acute distress, nontoxic. PHYSICAL EXAMINATION: VITAL SIGNS: Temperature is 98, blood pressure is 120/70, respiratory rate of 16. HEENT: Examination of HEENT is unremarkable. NECK: Supple. LUNGS: Have decreased breath sounds. HEART: Normal S1 and S2. ABDOMEN: Soft. LABORATORY DATA: Laboratory examination revealed the examination of legs are much improved. ASSESSMENT AND PLAN: A 48-year-old male, who was seen earlier this morning in room 578, bed 2. MRIs are negative with the right lower extremity cellulitis that is resolved. Complete with p.o. doxycycline x5 days. Tony Maguire MD
== END 2018-03-10 11:41 | disposition home or self-care (01) | DRG 603 ==
LOC: ED 12:13 → ERH 14:33 → 5RSO 18:22
PROVIDERS: ADMIT Internal Medicine; ATTEND Internal Medicine
DX: L03.115 Cellulitis of right lower limb (principal); Z68.41 Body mass index [BMI] 40.0-44.9, adult; I89.0 Lymphedema, not elsewhere classified; L03.116 Cellulitis of left lower limb; E11.9 Type 2 diabetes mellitus without complications; E87.6 Hypokalemia; E66.01 Morbid (severe) obesity due to excess calories; Z87.440 Personal history of urinary (tract) infections